=== PATIENT | male | born 1945 | race Caucasian/White ===

== ENCOUNTER 2022-02-14 12:48 | Outpatient (CLI) | payer MEDICARE, OTHER, SELFPAY ==
[2022-02-14 13:39] LABS: Influenza A QL RT-PCR Negative (Negative); Influenza B QL RT-PCR Negative (Negative); SARS-CoV-2 RNA PCR Negative
== END 2022-02-14 12:49 | disposition home or self-care (01) ==
PROVIDERS: PCP Internal Medicine; Visit Provider Internal Medicine
DX: B34.9 Viral infection, unspecified (principal); Z20.822 Contact with and (suspected) exposure to COVID-19
CPT/HCPCS: 87636

== ENCOUNTER 2022-02-16 11:48 | Emergency (ER) | payer MEDICARE, OTHER, SELFPAY ==
--- NOTE | ~2022-02-16 | XR_ITS ---
EXAMINATION: XR chest 2V 02/16/2022 13:33 INDICATION: Cough PROCEDURE: 2 view chest COMPARISON: 05/08/2018 FINDINGS: The lungs are clear. The cardiomediastinal silhouette is within normal limits. There are no pleural effusions. There is no pneumothorax suspected. There are prominent bilateral nipple shad ows. IMPRESSION: 1: NO ACUTE CARDIOPULMONARY DISEASE. Reviewed, dictated and finalized at location A. APIN FISHER
[2022-02-16 12:23] VITALS: BP 143/77; PULSE 66; RESP 18; TEMP 36; O2SAT 99
--- NOTE | 2022-02-16 13:24 | ED.URI ---
HPI - URI/Sore Throat General Chief Complaint: Upper Respiratory Infection Stated Complaint: Congestion,Cough Time Seen by Provider: 02/16/22 13:17 Source: patient Mode of arrival: ambulatory Limitations: no limitations History of Present Illness HPI Narrative: Patient presents today complaining of cough, congestion, postnasal drip, rhinorrhea for over a week. Denies fever. Two days ago he had a negative flu and COVID test at his PCPs office. He has been taking Mucinex and Vicks Cold and Flu without relief. Denies shortness of breath. Denies history of COPD or asthma. Related Data Home Medications Medication Instructions Recorded Confirmed dutasteride 0.5 mg capsule 0.5 mg PO DAILY 04/26/19 02/16/22 (Avodart) timolol maleate (PF) 0.5 % eye 1 drop ophthalmic (eye) DAILY 04/26/19 02/16/22 drops in a dropperette (Timoptic Ocudose (PF)) Allergies Allergy/AdvReac Type Severity Reaction Status Date / Time No Known Allergies Allergy Verified 02/16/22 12:17 Review of Systems Review of Systems: CONSTITUTIONAL: Denies body aches, fever, chills, or sweats. EYES: Denies visual changes, redness, or discharge. ENT: Denies sore throat, or otalgia.+ congestion, rhinorrhea, postnasal drip CARDIOVASCULAR: Denies chest pain, palpitations, or edema. RESPIRATORY: Denies dyspnea.+ cough GASTROINTESTINAL: Denies abdominal pain, nausea, vomiting, or diarrhea. GENITOURINARY: Denies dysuria or hematuria. SKIN: Denies rash, itching, or wounds. MUSCULOSKELETAL: Denies back pain, joint pain, or myalgia. NEUROLOGIC: Denies headache, numbness, tingling, or weakness. PSYCH: Denies depression or anxiety. [facility] Family History Family History Sibling Family history of lung cancer, Onset Age: 56 Patient's brother is Other Diabetes mellitus Family history of malignant neoplasm Hypertension Social History Social History Smoking status: Former smoker Second hand tobacco smoke exposure: No Smoking end date: 03/16/75 Alcohol intake: never Comments At time of signature, I have reviewed and agree with nursing past medical, surgical, social and family history unless otherwise noted. Please see nursing chart for further information. There is no relevant family history pertinent to the presenting complaint Exam Narrative: GENERAL: Mildly ill-appearing, well-nourished, and in no acute distress. HEAD: Normocephalic, atraumatic. EYES: EOMI. No redness or drainage. Conjunctivae normal. ENT: Mucous membranes pink and moist. Nares clear. No rhinorrhea. TMs normal bilaterally. Throat normal with moderate amount of postnasal drainage. Uvula midline. NECK: Normal AROM. Supple. No lymphadenopathy. CHEST: No respiratory distress. Clear to auscultation. HEART: Regular rate and rhythm. No murmur appreciated. Normal peripheral pulses. EXTREMITIES: Normal range of motion. No edema. SKIN: Warm, dry, no rash. Capillary refill normal. Normal skin turgor. NEURO: No focal deficits. Alert and oriented x3. Gait steady. PSYCH: Normal affect. No signs of depression or anxiety. Course Course Level of Care: Express Care Visit Vital Signs Vital signs: Vital Signs Temperature 96.8 F L 02/16/22 12:23 Pulse Rate 66 02/16/22 12:23 Respiratory Rate 18 02/16/22 12:23 Blood Pressure 143/77 H 02/16/22 12:23 Pulse Oximetry 99 02/16/22 12:23 Oxygen Delivery Room Air 02/16/22 12:23 Temperature 96.8 F L 02/16/22 12:23 Pulse Rate 66 02/16/22 12:23 Respiratory Rate 18 02/16/22 12:23 Blood Pressure 143/77 H 02/16/22 12:23 Pulse Oximetry 99 02/16/22 12:23 Oxygen Delivery Room Air 02/16/22 12:23 Reviewed. Pt has been instructed to follow up with his PCP regarding his elevated blood pressure today. MDM - URI/Sore Throat Differential Diagnosis Differential
== END 2022-02-16 14:08 | disposition home or self-care (01) ==
PROVIDERS: Emergency Provider Nurse Practitioner; PCP Internal Medicine
DX: J40 Bronchitis, not specified as acute or chronic (principal); J06.9 Acute upper respiratory infection, unspecified; Z87.891 Personal history of nicotine dependence; I10 Essential (primary) hypertension
CPT/HCPCS: 71046; 99213; G0463

== ENCOUNTER 2022-12-16 00:47 | Day surgery (SDC) | payer MEDICARE, OTHER, SELFPAY ==
[2022-12-03 14:00] VITALS: BMI 32.8
[2022-12-16 06:15] VITALS: BP 140/76; PULSE 63; RESP 20; TEMP 35.8; O2SAT 96
[2022-12-16] MEDS: LACTATED RINGERS 1,000 ML 150 ML IV CONT (06:22)
--- NOTE | 2022-12-16 07:13 | WPDANESEPPF ---
Anes - Initial Pre Proc Eval Procedure: Operation Date: 12/16/22 07:30 Proposed Procedures p Screening Colonoscopy - Rajeev Morocho MD Date/Time: 12/16/22 07:13 Surgeon: Rajeev Morocho MD Pre Op Diagnosis: neoplasm screening Patient Data Age: 77 Gender: M Height: 1.8 m Weight: 111.2 kg Last Vital Signs Temp 96.5 F L 12/16/22 06:15 Pulse 63 12/16/22 06:15 Resp 20 12/16/22 06:15 BP 140/76 12/16/22 06:15 Pulse Ox 96 12/16/22 06:15 O2 Del Method Room Air 12/16/22 06:15 Allergies Allergy/AdvReac Type Severity Reaction Status Date / Time No Known Allergies Allergy Verified 12/16/22 06:13 Home Medications Medication Instructions Recorded Confirmed Type dutasteride 0.5 mg capsule 0.5 mg PO DAILY 04/26/19 12/03/22 History (Avodart) timolol maleate (PF) 0.5 % eye 1 drop ophthalmic (eye) DAILY 04/26/19 12/03/22 History drops in a dropperette (Timoptic Ocudose (PF)) docusate sodium 100 mg capsule 100 mg PO DAILY 09/22/22 12/03/22 History (Stool Softener) lisinopril 20 mg tablet 20 mg PO DAILY #90 tabs 09/22/22 12/03/22 Rx sildenafil 50 mg tablet (Viagra) 50 mg PO DAILY PRN sexual activity 09/22/22 12/03/22 Rx #10 tabs Patient hx anesthesia problems: none Family hx anesthesia problems: none Results Review: All pre-operative results and documents have been reviewed as part of the pre-operative evaluation. [facility] Family History Family History Sibling Family history of lung cancer, Onset Age: 56 Patient's brother is Other Diabetes mellitus Family history of malignant neoplasm Hypertension Social History Social History Smoking packs per day: 1 Smoking cigarettes per day: 20.0 Years smoked: 20 Smoking pack-years: 20.00 Smoking status: Former smoker Tobacco type: cigarettes Second hand tobacco smoke exposure: No Smoking end date: 03/16/75 Alcohol intake: never Substance use: never Substance use type: does not use Lack of Transportation: No Lack of Food: Never True Current Housing: I Have Housing Concerned About Future Housing: No Difficulty Paying Gas/Electric Bills: No Difficulty Paying for Meds: No Currently Unemployed: No Education: Trade/Vocational Certificate Difficulty w/ Childcare or Family Care: No Living arrangements: with family Spiritual care concerns: No Anes - Eval Final PreProcedure Day of Procedure 12/16/22 07:13 Patient weight: normal Heart: regular rate and rhythm Lungs: clear to auscultation Airway: Mallampati scale class III Neurological: alert and oriented Last oral intake: >/= 8 hours ASA classification: II Emergent: no Anesthetic plan: proceed Anesthesia type and monitoring: general GIVS and standard monitoring Results Review: All pre-operative results and documents have been reviewed as part of the pre-operative evaluation. Informed Consent: The patient's anesthetic plan and its attendant risks and benefits were discussed with the patient/family/POA. Questions were solicited and answers provided to the satisfaction of the patient/family/POA.
--- NOTE | 2022-12-16 07:24 | PM.HPGS ---
History of Present Illness History of Present Illness Consent: Risks, benefits, and alternatives have been discussed and questions answered. Patient agrees to proceed with procedure. Chief complaint: neoplasm screening Narrative: Rg Barker Jr. is a 77 year old male Presents for screening colonoscopy. Patient has current weight appetite bowel movements are normal. Patient denies abdominal pain. He has had no bleeding. Family history noncontributory. Patient did have adenomatous colon polyps on previous colonoscopies. Most recently 2019. Review of Systems Review of Systems: Review of systems noncontributory. [facility] Family History Family History Sibling Family history of lung cancer, Onset Age: 56 Patient's brother is Other Diabetes mellitus Family history of malignant neoplasm Hypertension Social History Social History Smoking packs per day: 1 Smoking cigarettes per day: 20.0 Years smoked: 20 Smoking pack-years: 20.00 Smoking status: Former smoker Tobacco type: cigarettes Second hand tobacco smoke exposure: No Smoking end date: 03/16/75 Alcohol intake: never Substance use: never Substance use type: does not use Lack of Transportation: No Lack of Food: Never True Current Housing: I Have Housing Concerned About Future Housing: No Difficulty Paying Gas/Electric Bills: No Difficulty Paying for Meds: No Currently Unemployed: No Education: Trade/Vocational Certificate Difficulty w/ Childcare or Family Care: No Living arrangements: with family Spiritual care concerns: No Meds Home Medications and Allergies Home Medications Medication Instructions Recorded Confirmed Type dutasteride 0.5 mg capsule 0.5 mg PO DAILY 04/26/19 12/03/22 History (Avodart) timolol maleate (PF) 0.5 % eye 1 drop ophthalmic (eye) DAILY 04/26/19 12/03/22 History drops in a dropperette (Timoptic Ocudose (PF)) docusate sodium 100 mg capsule 100 mg PO DAILY 09/22/22 12/03/22 History (Stool Softener) lisinopril 20 mg tablet 20 mg PO DAILY #90 tabs 09/22/22 12/03/22 Rx sildenafil 50 mg tablet (Viagra) 50 mg PO DAILY PRN sexual activity 09/22/22 12/03/22 Rx #10 tabs Allergies Allergy/AdvReac Type Severity Reaction Status Date / Time No Known Allergies Allergy Verified 12/16/22 06:13 Vital Signs Vital Signs - 24 hr 12/16/22 06:15 Temperature 96.5 F L Pulse Rate 63 Respiratory Rate 20 Blood Pressure 140/76 Pulse Oximetry 96 Oxygen Delivery Room Air Exam Narrative: Physical exam reveals patient to be alert. Vital signs stable. HEENT exam is unremarkable. Patient is anicteric. Lungs are clear to auscultation and percussion. Heart is without murmur or extra sounds. Abdomen bowel sounds are present soft nontender with no organomegaly. Digital external rectal exam normal. Assessment and Plan Assessment and plan (1) History of colon polyps: Code(s): Z86.010 - Personal history of colonic polyps Status: Acute Assessment and Plan: Patient found to have adenomatous colon polyps by previous colonoscopy 2018. Patient presents today for surveillance colonoscopy.
[2022-12-16] MEDS: SIMETHICONE ORAL SUSPENSION 20 MG/0.3 ML 30 ML BOTTLE 0.6 ML IRRIGATION (07:36)
[2022-12-16 07:46] VITALS: BP 124/70; PULSE 79; RESP 18; O2SAT 92
[2022-12-16 07:56] VITALS: BP 145/93; PULSE 72; RESP 20; O2SAT 97
[2022-12-16 08:06] VITALS: BP 141/91; PULSE 71; RESP 20; O2SAT 97
== END 2022-12-16 08:14 | disposition home or self-care (01) ==
PROVIDERS: PCP Internal Medicine; Visit Provider Internal Medicine Gastroenterology
PROC: 0DJD8ZZ Inspection of Lower Intestinal Tract, Via Natural or Artificial Opening Endoscopic (ICD-10-PCS; CPT 45378; principal; 2022-12-16 07:30)
DX: Z12.11 Encounter for screening for malignant neoplasm of colon (principal); K64.8 Other hemorrhoids; Z86.010 Personal history of colon polyps; Z87.891 Personal history of nicotine dependence
CPT/HCPCS: G0105; J2704; J7120

== ENCOUNTER 2024-03-12 08:18 | Emergency (ER) | payer MEDICARE, OTHER, SELFPAY ==
--- NOTE | 2024-03-12 08:22 | ED_ITS ---
HPI - URI/Sore Throat General Chief Complaint: Upper Respiratory Infection Stated Complaint: Sinus Infection Symptoms Time Seen by Provider: 03/12/24 08:23 Source: patient, RN notes reviewed and old records reviewed Mode of arrival: ambulatory Limitations: no limitations History of Present Illness HPI Narrative: 78-year-old male presents to the [facility] with complaints of sinus congestion since last night Reports watery eyes and nose. Has taking Mucinex Patient denies any coughing, chest pain, fevers Onset (ago): hour(s) (12) Related Data Home Medications ?Medication ?Instructions ?Recorded ?Confirmed ?Last Taken ?Type dutasteride 0.5 mg capsule 0.5 mg PO DAILY 04/26/19 01/25/24 Unknown History (Avodart) timolol maleate (PF) 0.5 % eye 1 drop ophthalmic (eye) DAILY 04/26/19 01/25/24 Unknown History drops in a dropperette (Timoptic Ocudose (PF)) docusate sodium 100 mg capsule 100 mg PO DAILY 09/22/22 01/25/24 Unknown History (Stool Softener) Allergies Allergy/AdvReac Type Severity Reaction Status Date / Time No Known Allergies Allergy Verified 03/12/24 08:21 Review of Systems Review of Systems: All systems reviewed & are unremarkable except as noted in HPI and below Constitutional: Constitutional: Reports no additional constitutional complaints ENT: Reports as per HPI Cardiovascular: Cardiovascular: Reports no additional cardiovascular complaints, Denies chest pain and Denies dyspnea Respiratory: Respiratory: Reports no additional respiratory complaints, Denies chest congestion, Denies cough and Denies dyspnea Musculoskeletal: Musculoskeletal: Reports no additional musculoskeletal complaints Integumentary/Breasts: Skin/Breast: Reports system reviewed and no additional complaints, except as docu PMFSH Family History Family History Sibling Family history of lung cancer, Onset Age: 56 Patient's brother is Accident caused by farm tractor Mother Cerebrovascular accident Macular degeneration Father Acute myocardial infarction Sibling No problems noted. Other Diabetes mellitus Family history of malignant neoplasm Hypertension Social History Social History Smoking packs per day: 1 Smoking cigarettes per day: 20.0 Years smoked: 20 Smoking pack-years: 20.00 Smoking status: Former smoker Tobacco type: cigarettes Second hand tobacco smoke exposure: No Smoking end date: 03/16/75 Alcohol intake: former Substance use: never Substance use type: does not use Do You Feel Safe in your Home?: Yes Lack of Transportation: No Lack of Food: Never True Current Housing: I Have Housing Concerned About Future Housing: No Difficulty Paying Gas/Electric Bills: No Difficulty Paying for Meds: No Currently Unemployed: No Education: Trade/Vocational Certificate Difficulty w/ Childcare or Family Care: No Living arrangements: with family Occupation/Education: 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 There is no relevant family history p ertinent to the patient complaint. Exam Const: General: cooperative, healthy appearing, comfortable, no acute distress, well developed, alert and well nourished Nutritional Appearance: well nourished Orientation/consciousness: patient oriented x3 Limitations: no limitations HENMT: Head: normal to inspection Ears: hearing grossly normal bilaterally, external ears normal, TM's normal bilaterally, EAC's normal, mastoids normal and no periauricular adenopathy Face/Nose/Sinus: Normal nasal mucous membranes and turbinates present, Nasal discharge present clear bilateral, normal facial exam and face symmetric Mouth: Yes Normal oral and palatal mucosa present, Yes lip normal, Yes tongue normal and Yes moist mucous membranes Throat: posterior oropharynx normal, uvula midline, postnasal drainage and no uvular edema Eyes: General: appearance normal, both eyes and all related structures Neck: Neck: normal visual inspection, full ROM, no lymphadenopathy and no meningeal signs Chest: Chest palpation & inspection: normal inspection of the chest Resp: Effort & Inspection: normal respiratory effort and able to speak in complete sentences Auscultation: clear to auscultation bilaterally, no crackles, no rales, no rhonchi and no wheezes Cardio: Rate: regular rate Skin: General skin exam: normal color and no rashes or lesions noted Neuro: General: patient oriented x3, gait normal, moves all extremities and no meningeal signs Cognition (Neuro): normal cognition Speech: normal speech Gait exam (Neuro): Normal gait present Extrem: General: normal to inspection, full ROM, capillary refill normal and normal gait Psych: Appearance: grossly normal and well kempt Mental Status: mental status grossly normal Speech and movement: Normal speech and movement present and Clear speech present Affect: normal affect Attitude: cooperative Course Course Level of Care: Express Care Visit Vital Signs Vital signs: Vital Signs Temperature 99.5 F 03/12/24 08:26 Pulse Rate 93 03/12/24 08:26 Respiratory Rate 18 03/12/24 08:26 Blood Pressure 161/78 H 03/12/24 08:26 Pulse Oximetry 95 03/12/24 08:26 Oxygen Delivery Room Air 03/12/24 08:26 Temperature 99.5 F 03/12/24 08:26 Pulse Rate 93 03/12/24 08:26 Respiratory Rate 18 03/12/24 08:26 Blood Pressure 161/78 H 03/12/24 08:26 Pulse Oximetry 95 03/12/24 08:26 Oxygen Delivery Room Air 03/12/24 08:26 Reviewed MDM - URI/Sore Throat MDM Narrative Medical decision making narrative: Patient sitting comfortably in exam room. Nontoxic, vitals stable. Patient with approximately 12 hours of sinus congestion, rhinorrhea, watery itchy eyes No acute findings other than rhinorrhea and postnasal drainage noted. Patient was offered flu and COVID testing, politely declined. Discussed [id number] treatments, the importance of following up and when to return. Patient appropriate for outpatient treatment and Discharge instructions reviewed with patient, as well as provided in writing per nursing staff. The instructions also include specific and strict return/GO TO THE ER as well as f/u information. All questions have been answered, and the patient deny any further questions with discharge and discharge plan. Some parts of this dictation were generated by voice recognition software and may contain typographical and/or grammatical inaccuracies. Differential Diagnosis Differential diagnosis: Likely upper respiratory infection, sinusitis, viral infection, influenza and other (COVID, RSV) Critical Care Time Critical Care Time Critical Care Time: No Discharge Plan Discharge Clinical Impression: Viral infection, PND (post-nasal drip) Sinusitis Qualifiers: Sinusitis location: unspecified location Chronicity: acute Recurrence: not specified as recurrent Qualified Code(s): J01.90 - Acute sinusitis, unspecified Patient Disposition: Home, Self-Care Condition: Stable Instructions: Antibiotic Form, Sinusitis (ED), Postnasal Drip (DC) Additional Instructions: Your symptoms are likely due to a viral illness, which is not treated with antibiotics. Typically viral infections last 7-10 days, can linger for couple of weeks. It is very important to treat your symptoms. Drink plenty of water, Gatorade, Pedialyte, ice pops or Jell-O. -Alternate Tylenol and Motrin per package directions for fever or pain. You can alternate every 4 hours -Antihistamine medication such as Zyrtec/Claritin/Anastasia during the day can help improve symptoms. -doing daily nasal irrigations can help relieve pressure your sinuses. Things like a Neti pot or saloine spray -Use Flonase twice a day for 5 days then daily to help reduce the inflammation and dry up your sinuses. -You can also use Mucinex or Coricidin HBP. Be sure to drink plenty of water with this medication at least 8 ounces with every dose and it is important to drink 8 to 10 glasses of water per day. Water is a natural decongestant -Eat and drink things that are easy to swallow, like tea or soup, or popsicles. -Oral rinses such as: Salt water gargles and/or may use topical anesthetic (eg. Chloraseptic spray) or lozenges to relieve dryness or throat pain). -Frequent hand washing or hand quality control engineer is one of the best ways to prevent spread of infection. -Using a vaporizer or humidifier at night will also help thin secretions and help with coughing up phlegm. -Follow up with primary care provider in 7-10 days if condition is not improving - For new or worsening symptoms go directly to the nearest ER Patient Language: [place] Prescriptions: No Action dutasteride [Avodart] 0.5 mg capsule 0.5 mg PO DAILY Timoptic Ocudose (PF) 0.5 % dropperette 1 drop EACH EYE DAILY docusate sodium [Stool Softener] 100 mg capsule 100 mg PO DAILY lisinopril 20 mg tablet 20 mg PO DAILY Qty: 90 3RF Follow-up/Referrals: Cisco Dumont DO [Primary Care Provider] - 2 Weeks ([facility] care follow [facility]) Time of Disposition: 08:41
[2024-03-12 08:26] VITALS: BP 161/78; PULSE 93; RESP 18; TEMP 37.5; O2SAT 95
== END 2024-03-12 08:44 | disposition home or self-care (01) ==
PROVIDERS: Emergency Provider Nurse Practitioner; PCP Internal Medicine
DX: B34.9 Viral infection, unspecified (principal); R09.82 Postnasal drip; J01.90 Acute sinusitis, unspecified; Z87.891 Personal history of nicotine dependence
CPT/HCPCS: 99211; G0463

== ENCOUNTER 2024-04-12 06:46 | Emergency (ER) | payer MEDICARE, OTHER, SELFPAY ==
[2024-04-12] VITALS (7 sets, daily range): BP systolic 129–142; BP diastolic 66–90; PULSE 79–84; RESP 14–22; TEMP 36.5–36.6; O2SAT 94–100
--- NOTE | ~2024-04-12 | XR_ITS ---
Clinical Indication: Chest pain PA and lateral views of the chest: Comparison: 02/16/2022 Findings: The lungs are clear, without evidence of focal consolidation or pleural effusion. Cardiome diastinal silhouette is within normal limits. Bones and soft tissues are unremarkable. Impression: Normal chest. Reviewed, dictated and finalized at location . ATOR PILOT Impression: Normal chest.
--- OUTSIDE RECORDS SUMMARY | 2024-04-12 06:48 | XMS_ITS | Clinical Summary ---
Author Organization [facility] Address [address] [place] [address]. [place], [place] [id number] [place] [address] Care Team Providers Care Wearing Apparel Presser Name Role Phone Cisco Dumont DO Primary Care Provider Allergies No known active allergies Medications lisinopril (PRINIVIL) 20 MG tablet Take 1 tablet (20 mg total) by mouth daily. Active albuterol sulfate HFA 108 (90 Base) MCG/ACT inhaler Inhale 4 puffs into the lungs every 4 (four) hours as needed for Wheezing or Shortness of breath. 18 g 5 Active predniSONE (DELTASONE) 20 MG tablet Take 3 tablets (60 mg total) by mouth daily for 5 days. 15 tablet 5 04/06/19 25 Encounters Date Type Department Care Team Description 04/01/2024 7:16 AM COSMETICIAN APPRENTICE - 04/01/2024 9:35 AM [facility] Emergency [facility] Emergency Room [address] [place] [address] Reilly Stewart MD Shortness Of Breath Discharge Disposition: Home or Self Care (Routine Discharge) 04/01/2024 Travel from Last 3 Months Social History Tobacco Use Types Packs/Day Years Used Date Smoking Tobacco: Former Cigarettes Smokeless Tobacco: Former Tobacco Cessation:Counseling Given: Not Answered Alcohol Use Standard Drinks/Week Comments Not Currently 0 (1 standard drink = 0.6 oz pur e alcohol) Sex and Gender Information Value Date Recorded Sex Assigned at Male 04/01/2024 7:39 AM COSMETICIAN APPRENTICE Legal Sex Male 7:12 AM COSMETICIAN APPRENTICE Gender Identity Not on file Sexual Orientation Not on file Last Filed Vital Signs Vital Sign Reading Time Taken Comments Blood Pressure 162/96 04/01/2024 9:15 AM COSMETICIAN APPRENTICE Pulse 70 04/01/2024 9:15 AM COSMETICIAN APPRENTICE Temperature 36.5 ??C (97.7 ??F) 04/01/2024 9:15 AM CS T Respiratory Rate 18 04/01/2024 9:15 AM COSMETICIAN APPRENTICE Oxygen Saturation 94% 04/01/2024 9:15 AM COSMETICIAN APPRENTICE Inhaled Oxygen Concentration - - Weight 114.3 kg (251 lb 15.8 oz) 04/01/2024 7:13 AM COSMETICIAN APPRENTICE Height 180.3 cm (5' 11 ) 04/01/2024 7:13 AM COSMETICIAN APPRENTICE Body Mass Index 35.14 04/01/2024 7:13 AM COSMETICIAN APPRENTICE Plan of Treatment Health Maintenance Due Date Last Done Comments Hepatitis C 11/22/1963 DTaP, Tdap and Td Vaccines ( 1 - Tdap) 1964 Zoster Vaccines (1 of 2) 11/22/1995 Annual Medicare Wellness Visit 2010 Pneumococcal Vaccine: 65+ Ye ars (1 of 1 - PCV) 2010 RSV Immunization or 60+ Years (1 - 1-dose 75+ series) 2020 COVID-19 Vaccine (2023-2 5 season) 2023 Influenza Adult (#1) 2023 Meningococcal B Vaccine Aged Out No l onger eligible based on patient's age to complete this topic Meningococcal Vaccine Aged Out No rambo rebekah eligible based on patient's age to complete this topic RSV Immunizations Under 20 Months Aged Out No longer eligible based on patient's age to complete this topic Procedures Procedure Name Priority Date/Time Associated Diagnosis Comments XR CHEST PA+LAT STAT 04/01/2024 8:20 AM COSMETICIAN APPRENTICE ECG 12-LEAD Routine 04/01/2024 7:35 AM COSMETICIAN APPRENTICE PRO-BRAIN NATRIURETIC PEPTIDE STAT 04/01/2024 7:18 AM COSMETICIAN APPRENTICE TROPONIN, QUANT STAT 04/01/2024 7:18 AM COSMETICIAN APPRENTICE COMPREHENSIVE METABOLIC PANEL STAT 04/01/2024 7:18 AM COSMETICIAN APPRENTICE CBC W/DIFF AUTOMATED STAT 04/01/2024 7:18 AM COSMETICIAN APPRENTICE from Last 3 Months Results * XR CHEST PA+LAT (04/01/2024 8:20 AM COSMETICIAN APPRENTICE) Anatomical Region Laterality Modality Chest Radiographic C[place] ging 04/01/2024 8:24 AM COSMETICIAN APPRENTICE Impressions 04/01/2024 8:27 AM COSMETICIAN APPRENTICE IMPRESSION: 1. No focal consolidation or acute findings. 2. Nodular densities in the left lung base, favored to reflect calcified granulomas. Recommend nonemergent outpatient CT chest without contrast, if not previously performed, for confirmation. Ordered By: REILLY STEWART Interpreted By: Srinivasan Dubon MD, 04/01/2024 8:24 AM Narrative 04/01/2024 8:27 AM COSMETICIAN APPRENTICE [facility] [address] [place] [id number] XR CHEST PA+LAT INDICATION: dyspnea ?? TECHNIQUE: PA and lateral views of the chest. COMPARISON: None FINDINGS: The cardiomediastinal silhouette is within normal limits. There is no pulmonary consolidation. Nodular densities project over the left lung base, likely reflective of granulomas. No pleural effusions or pneumothorax. No acute osseous abnormality. Moderate thoracic spondylosis. Procedure Note Srinivasan Dubon MD - 04/01/2024 [facility] [address] [place] [address] XR CHEST PA+LAT INDICATION: dyspnea TECHNIQUE: PA and lateral views of the chest. COMPARISON: None FINDINGS: The cardiomediastinal silhouette is within normal limits. There is nopulmonary consolidation. Nodular densities project over the left lungbase, likely reflective of granulomas. No pleural effusions orpneumothorax. No acute osseous abnormality. Moderate thoracicspondylosis. IMPRESSION: 1. No focal consolidation or acute findings. 2. Nodular densities in the left lung base, favored to reflect calcifiedgranulomas. Recommend nonemergent outpatient CT chest without contrast, ifnot previously performed, for confirmation. Ordered By: REILLY STEWART Interpreted By: Srinivasan Dubon MD, 04/01/2024 8:24 AM us Reilly Stewart MD GENERAL IMAGING Final Resu lt * ECG 12 lead (04/01/2024 7:35 AM COSMETICIAN APPRENTICE) 04/01/2024 7:35 AM COSMETICIAN APPRENTICE Narrative [facility] [address] ([facility]) RAD - 04/01/2024 8:19 AM COSMETICIAN APPRENTICE ?[facility] ? Test Date: ?2024-04-01 Pat Name: ? INDIANA DOMINGUEZ ? Department: ?? 85 ? Room: ? EXAM 202 Gender: ? M ?Cardiovascular Or Nurse: ?? : ?1945 ? Requested By: REILLY STEWART Order Number: [id number] ? Reading : ?? Carlo Snow ? Measurements Intervals ?[place] ? Rate: ? 61 ? P: ?79 MO: ? 162 ?QRS: ?104 QRSD: ? 97 ? T: ?60 QT: ? 369 ? QTc: ?374 ? Interpretive Statements SINUS RHYTHM RIGHT AXIS DEVIATION ??[QRS AXIS > 100] No previous ECG available for comparison ETICIAN APPRENTICE Procedure Note Carlo Snow MD - 04/01/2024 [facility] Test Date: 2024-04-01 Pat Name: INDIANA DOMINGUEZ Department: 85 Room: EXAM 202 Gender: M Cardiovascular Or Nurse: : 1945 Requested By: REILLY STEWART Order Number: [id number] Balaji MD: Carlo Snow Measurements Intervals [place] Rate: 61 P: 79 MO: 162 QRS: 104 QRSD: 97 T: 60 QT: 369 QTc: 374 Interpretive Statements SINUS RHYTHM RIGHT AXIS DEVIATION [QRS AXIS > 100] No previous ECG available for comparison ETICIAN APPRENTICE Reilly Stewart MD ECG ORDERABLES Final Resu lt Performing Organization Address [facility] Co de Phone Number [facility] ([facility]) RAD * PRO-BRAIN NATRIURETIC PEPTIDE (04/01/2024 7:18 AM COSMETICIAN APPRENTICE) PRO-B TYPE NATRIURETIC PEPTIDE 119 <450 PG/ML 04/01/2024 7:57 AM COSMETICIAN APPRENTICE [facility] Comment: CUT POINTS ESTABLISHED BY [employer]ATIONAL [employer] ON NT PROBNP (ICON) STUDY (2006). AGE INDEPENDENT: <300 PG/ML HAS A 99% NEGATIVE PREDICTIVE VALUE FOR EXCLUDING ACUTE CHF <50 YEARS: >450 PG/ML IS CONSISTENT WITH ACUTE CHF 50-75 YEARS: >900 PG/ML IS CONSISTENT WITH ACUTE CHF >75 YEARS: >1800 PG/ML IS CONSISTENT WITH ACUTE CHF IN PATIENTS WITH RENAL INSUFFICIENCY (GFR <60), >1200 PG/ML YIELDS A DIAGNOSTIC SENSITIVITY AND SPECIFICITY OF 89% AND 72% FOR ACUTE CHF. 04/01/2024 7:18 AM COSMETICIAN APPRENTICE us Reilly Stewart MD LABORATORY Final Resu lt Performing Organization Address [facility] Co de Phone Number [facility] [address] [place] [address], [place] [phone] * (ABNORMAL) COMPREHENSIVE METABOLIC PANEL (04/01/2024 7:18 AM COSMETICIAN APPRENTICE) GLUCOSE 94 70 - 99 MG/DL 04/01/2024 7:57 AM COSMETICIAN APPRENTICE [facility] BUN 16 7 - 18 MG/DL 04/01/2024 7:57 AM COSMETICIAN APPRENTICE [facility] CREATININE S/P/B 1.04 0.7 - 1.3 MG/DL 04/01/2024 7:57 AM COSMETICIAN APPRENTICE [facility] SODIUM S/P/B 139 136 - 145 MMOL/L 04/01/2024 7:57 AM [facility] POTASSIUM S/P/B 4.1 3.5 - 5.1 MMOL/L 04/01/2024 7:57 AM [facility] CHLORIDE S/P/B 103 100 - 108 MMOL/L 04/01/2024 7:57 AM [facility] CO2 33.9(H) 21 - 32 MMOL/L 04/01/2024 7:57 AM [facility] CALCIUM S/P/B 9.1 8.5 - 10.1 MG/DL 04/01/2024 7:57 AM [facility] BILIRUBIN TOTAL S/P/B 0.7 0.2 - 1.2 MG/DL 04/01/2024 7:57 AM [facility] TOTAL PROTEIN S/P/B 7.5 6.4 - 8.2 G/DL 04/01/2024 7:57 AM [facility] ALBUMIN S/P/B 3.8 3.4 - 5.0 G/DL 04/01/2024 7:57 AM [facility] AST 17 15 - 37 U/L 04/01/2024 7:57 AM [facility] ALT 13(L) 16 - 60 U/L 04/01/2024 7:57 AM [facility] ALKALINE PHOSPHATASE S/P/B 111 50 - 136 U/L 04/01/2024 7:57 AM [facility] ANION GAP 2.1(L) 5 - 15 MMOL/L 04/01/2024 7:57 AM [facility] BUN CREATININE RATIO 15.4 6 - 26 04/01/2024 7:57 AM [facility] A/G RATIO 1.0 1.0 - 2.0 RATIO 04/01/2024 7:57 AM [facility] GFR ESTIMATE 73(L) >90 ML/MIN/1.7 3 M2 04/01/2024 7:57 AM [facility] Comment: NOTE: eGFR is not calculated for patients <18 years of age. This is an estimated GFR calculation using the new CKD EPI creatinine equation without race and so does not require a correction factor for race. This estimated GFR should not be used for calculating drug doses. 04/01/2024 7:18 AM COSMETICIAN APPRENTICE us Reilly Stewart MD LABORATORY Final Resu lt [facility] [address] [place] [id number], [place] [phone] * CBC W/DIFF AUTOMATED (04/01/2024 7:18 AM COSMETICIAN APPRENTICE) WBC 7.54 4.4 - 11.0 x10'3/uL 04/01/2024 7:42 AM [facility] RBC 5.53 4.50 - 5.90 x10'6/uL 04/01/2024 7:42 AM [facility] HGB 15.7 14.0 - 17.5 G/DL 04/01/2024 7:42 AM [facility] HCT 49.2 41.5 - 50.4 % 04/01/2024 7:42 AM [facility] MCV 89.0 80.0 - 96.0 FL 04/01/2024 7:42 AM [facility] MCH 28.4 26.5 - 31.4 PG 04/01/2024 7:42 AM [facility] MCHC 31.9 31.9 - 34.8 G/DL 04/01/2024 7:42 AM [facility] RDW 13.8 12.3 - 14.3 % 04/01/2024 7:42 AM [facility] PLT 185 151 - 353 x10'3/uL 04/01/2024 7:42 AM [facility] MPV 9.7 9.7 - 11.9 FL 04/01/2024 7:42 AM [facility] RBC MORPHOLOGY NORMAL 04/01/2024 7:42 AM [facility] PLT MORPH. NORMAL 04/01/2024 7:42 AM [facility] WBC MORPHOLOGY NORMAL 04/01/2024 7:42 AM [facility] LYMPHOCYTES % 21.8 15.8 - 45.0 % 04/01/2024 7:42 AM [facility] NEUTROPHILS % 62.6 42.1 - 71.9 % 04/01/2024 7:42 AM [facility] MONOCYTES % 11.3 5.7 - 12.5 % 04/01/2024 7:42 AM [facility] EOSINOPHILS 3.2 0.0 - 5.6 % 04/01/2024 7:42 AM [facility] BASOPHILS 0.8 0.0 - 1.3 % 04/01/2024 7:42 AM [facility] ABS. NEUTROPHILS 4.73 1.40 - 6.00 x10'3/uL 04/01/2024 7:42 AM [facility] IMMATURE GRANS % 0.3 0.0 - 0.5 % 04/01/2024 7:42 AM [facility] ABS. LYMPHOCYTES 1.64 0.80 - 4.70 x10'3/uL 04/01/2024 7:42 AM COSMETICIAN APPRENTICE [facility] 04/01/2024 7:18 AM COSMETICIAN APPRENTICE Reilly Stewart MD LABORATORY Final Resu lt Performing Organization Address City/[facility]/ZIP Co de Phone Number [facility] [address] [place] [address], [place] [phone] * TROPONIN, QUANT (04/01/2024 7:18 AM COSMETICIAN APPRENTICE) TROPONIN I HIGH SENSITIVITY 5 0 - 75 ng/L 04/01/2024 7:51 AM COSMETICIAN APPRENTICE [facility] Comment: HIGH DOSES OF BIOTIN, TROPONIN-SPECIFIC AUTOANTIBODIES, AND ANTIBODY THERAPY CONTAINING HAMA MAY INTERFERE WITH THIS TEST RESULT. CORRELATION TO CLINICAL HISTORY AND PRESENTATION RECOMMENDED. 04/01/2024 7:18 AM COSMETICIAN APPRENTICE Reilly Stewart MD LABORATORY Final Resu lt Performing Organization Address [facility] Co de Phone Number [facility] [address] [place] [address], [place] [phone] from Last 3 Months Insurance [place]IC[place] [id number] Care Teams Wearing Apparel Presser Relationship Specialty Start Date End Date Cisco Dumont DO [address] [place] [id number] PCP - General INTERNAL MEDICINE 04/01/24
--- NOTE | 2024-04-12 06:54 | ECG_ITS ---
Test Date: 2024-04-12 06:57:36 Measurements Intervals [place] Rate: 83 P: 74 [place]: 154 QRS: 105 QRSD: 93 T: 48 QT: 340 QTc: 401 Interpretive Statements SINUS RHYTHM RIGHT AXIS DEVIATION [QRS AXIS > 100] No previous ECG available for comparison Electronically Signed On 04-12-2024 16:17:07 ROLLER SKATE ASSEMBLER by Lulu Real M.D.
[2024-04-12 07:09] LABS: Basophils Percent Auto 0.5 % (0.2-1.2); Eosinophils Absolute Auto 0.4 K/mm3 (0-0.3); Hematocrit 53.3 % (42.0-52.0); Hemoglobin 16.7 g/dL (14.0-18.0); Immature Granulocyte Absolute 0.04 K/mm3 (0.00-0.031); Immature Granulocyte Percent A 0.5 % (0-0.5); Lymphocytes Absolute Auto 1.51 K/mm3 (0.9-3.2); Lymphocytes Percent Auto 17.1 % (18.3-44.2); Mean Corpuscular HGB Conc 31.3 g/dl (32-36); Mean Corpuscular Volume 89.4 fl (80-100); Mean Platelet Volume 9.8 fl (7.4-10.4); Monocytes Absolute Auto 0.7 K/mm3 (0.1-0.6); Monocytes Percent Auto 8.1 % (2.6-8.5); Neutrophils Absolute Auto 6.1 K/mm3 (1.3-6.7); Neutrophils Percent Auto 68.8 % (45.5-73.1); Platelet Count Result 169 k/mm3 (150-375); Red Blood Count 5.96 M/mm3 (4.6-6.20); Red Cell Distribution Width 13.7 % (11.5-14.5); White Blood Count 8.8 K/mm3 (4.5-10.0)
[2024-04-12 07:20] LABS: INR 1.1; Prothrombin Time 14.6 Seconds (11.1-14.7)
[2024-04-12 07:21] LABS: Partial Thromboplastin Time 30.4 Seconds (22.3-36.8)
[2024-04-12 07:32] LABS: Alanine Aminotransferase 24 U/L (6-50); Albumin Level 4.3 g/dL (3.5-5.1); Alkaline Phosphatase 93 U/L (38-126); Anion Gap 7 mmol/L (4-12); Aspartate Amino Transferase 19 U/L (17-59); Bilirubin,Total 0.7 mg/dL (0.2-1.3); Blood Urea Nitrogen 21 mg/dL (9-20); Calcium 9.3 mg/dL (8.4-10.2); Carbon Dioxide 31 mmol/L (22-30); Chloride 100 mmol/L (98-107); Estimated CRCL calculation 82 ml/min; Estimated Glomerular Filt Rate > 60; Glucose 134 mg/dL (65-110); Lipase 415 U/L (23-300); Potassium 4.5 mmol/L (3.4-5.0); Sodium 138 mmol/L (137-145)
[2024-04-12 07:43] LABS: Troponin I < 0.012 ng/mL (0.000-0.034)
--- NOTE | 2024-04-12 08:10 | ED_ITS ---
HPI - General Adult General Chief complaint: Shortness of Breath/Dyspnea Stated complaint: SOB and Nausea Time Seen by Provider: 04/12/24 06:57 History of Present Illness HPI narrative: 78-year-old male present to the emergency department for evaluation for worsening shortness of breath. Patient reports he had an upper airway infection on March 09 was started on a Z-Raciel. Patient then had recurrent symptoms on April 01 and was started on prednisone and albuterol. Patient states that he had been doing better but then started having worsening shortness of breath yesterday. Patient complains of worsening wheezing but denies any cough congestion or fatigue. Patient does have a remote history of smoking but has never been diagnosed with COPD. Patient is wheezing on arrival to the emergency department. Patient appears to be in no distress Related Data Home Medications ?Medication ?Instructions ?Recorded ?Confirmed ?Last Taken ?Type dutasteride 0.5 mg capsule 0.5 mg PO DAILY 04/26/19 01/25/24 Unknown History (Avodart) timolol maleate (PF) 0.5 % eye 1 drop ophthalmic (eye) DAILY 04/26/19 01/25/24 Unknown History drops in a dropperette (Timoptic Ocudose (PF)) docusate sodium 100 mg capsule 100 mg PO DAILY 09/22/22 01/25/24 Unknown History (Stool Softener) albuterol sulfate 90 mcg/actuation 1 puff inhalation Q4H PRN 04/06/24 Unknown History aerosol inhaler (Ventolin HFA) Allergies Allergy/AdvReac Type Severity Reaction Status Date / Time No Known Allergies Allergy Verified 04/12/24 06:47 Review of Systems 2 Review of Systems: All systems reviewed & are unremarkable except as noted in HPI and below PMFSH Family History Family History Sibling Family history of lung cancer, Onset Age: 56 Patient's brother is Accident caused by farm tractor Mother Cerebrovascular accident Macular degeneration Father Acute myocardial infarction Sibling No problems noted. Other Diabetes mellitus Family history of malignant neoplasm Hypertension Social History Social History Smoking packs per day: 1 Smoking cigarettes per day: 20.0 Years smoked: 20 Smoking pack-years: 20.00 Smoking status: Former smoker Tobacco type: cigarettes Second hand tobacco smoke exposure: No Smoking end date: 03/16/75 Alcohol intake: former Substance use: never Substance use type: does not use Do You Feel Safe in your Home?: Yes Lack of Transportation: No Lack of Food: Never True Current Housing: I Have Housing Concerned About Future Housing: No Difficulty Paying Gas/Electric Bills: No Difficulty Paying for Meds: No Currently Unemployed: No Education: Trade/Vocational Certificate Difficulty w/ Childcare or Family Care: No Living arrangements: with family Occupation/Education: retired 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 HEAD: normocephalic, atraumatic. EYES: PERRLA/EOMI, conjunctivae clear. NOSE: Normal no drainage EARS:TMS clear with good light reflex. THROAT: Pharynx clear, no exudate. NECK: Supple. No adenopathy, no masses. RESPIRATORY: Expiratory wheeze in all lung porras CARDIOVASCULAR: Regular rate and rhythm without murmurs rubs or gallops. ABDOMINAL: Soft, nontender, nondistended, normal bowel sounds MUSCULOSKELETAL: Moves all extremities. Strength/ROM intact, No edema, No calf tenderness. NEURO: Alert. Cranial nerves II through XII intact. Good gait. Good coordination SKIN: Warm, dry. Normal Color Course Vital Signs Vital signs: Vital Signs Temperature 97.8 F 04/12/24 06:55 Pulse Rate 84 04/12/24 06:55 Respiratory Rate 16 04/12/24 06:55 Blood Pressure 142/90 H 04/12/24 06:55 Pulse Oximetry 94 04/12/24 06:55 Oxygen Delivery Room Air 04/12/24 06:55 Temperature 97.7 F 04/12/24 11:21 Pulse Rate 81 04/12/24 11:21 Respiratory Rate 22 H 04/12/24 11:21 Blood Pressure 129/66 04/12/24 11:21 Pulse Oximetry 97 04/12/24 11:21 Oxygen Delivery Room Air 04/12/24 08:35 Medical Decision Making MDM Narrative Medical decision making narrative: 70-year-old male presents emergency department for evaluation for worsening shortness of breath. Patient does not have a diagnosis of COPD but does have a prior history of smoking and also has a history of welding fume lee to his lungs. Patient is afebrile with no leukocytosis hemoglobin of 16.7. INR 1.1. Patient has a CO2 of 31 with out any other significant abnormalities on his CMP patient's lipase was mildly elevated at 415 but patient has no associated abdominal pain. Influenza RSV and COVID were negative and chest x-ray showed was no focal pneumonia. Have significant wheezing on arrival was treated with a breathing treatment and does feel improved. On re-examination patient does still have some minor wheeze but does sound improved and patient reports he feels improved. Patient will be treated as a COPD exacerbation. Patient presently been treated with a Z-Raciel but wall be started on a Z-Raciel in addition to Augmentin and a short course of steroids. Patient does have a spacer MPV provided additional albuterol. Patient was encouraged of close follow-up with primary care physician and follow-up with pulmonology was recommended. Differential Diagnosis Differential Diagnosis: COVID, RSV, influenza, pneumonia, pneumothorax, COPD, CHF Vital Signs Vital Signs: Vital Signs Temperature 97.8 F 04/12/24 06:55 Pulse Rate 84 04/12/24 06:55 Respiratory Rate 16 04/12/24 06:55 Blood Pressure 142/90 H 04/12/24 06:55 Pulse Oximetry 94 04/12/24 06:55 Oxygen Delivery Room Air 04/12/24 06:55 Temperature 97.7 F 04/12/24 11:21 Pulse Rate 81 04/12/24 11:21 Respiratory Rate 22 H 04/12/24 11:21 Blood Pressure 129/66 04/12/24 11:21 Pulse Oximetry 97 04/12/24 11:21 Oxygen Delivery Room Air 04/12/24 08:35 Lab Data Lab results reviewed: Yes I reviewed the patient's lab results. 04/12/24 07:02 04/12/24 07:02 Labs: Lab Results 04/12/24 04/12/24 04/12/24 Range/Units 07:02 07:34 09:55 WBC 8.8 (4.5-10.0) K/mm3 RBC 5.96 (4.6-6.20) M/mm3 Hgb 16.7 (14.0-18.0) g/dL Hct 53.3 H (42.0-52.0) % MCV 89.4 (80-100) fl MCH 28.0 (26-34) pg MCHC 31.3 L (32-36) g/dl RDW 13.7 (11.5-14.5) % Plt Count 169 (150-375) k/mm3 MPV 9.8 (7.4-10.4) fl Immature Gran % (Auto) 0.5 (0-0.5) % Neut % (Auto) 68.8 (45.5-73.1) % Lymph % (Auto) 17.1 L (18.3-44.2) % [place] % (Auto) 8.1 (2.6-8.5) % Eos % (Auto) 5.0 H (0-4.4) % Baso % (Auto) 0.5 (0.2-1.2) % Lymph # (Auto) 1.51 (0.9-3.2) K/mm3 [place] # (Auto) 0.7 H (0.1-0.6) K/mm3 Eos # (Auto) 0.4 H (0-0.3) K/mm3 Baso # (Auto) 0.0 (0.0-0.1) K/mm3 Abs Immat Gran (auto) 0.04 H (0.00-0.031) K/mm3 Absolute Neuts (auto) 6.1 (1.3-6.7) K/mm3 Absolute Nucleated RBC 0.000 (0.0-0.012) K/mm3 Nucleated RBC % 0.0 (0.0-0.2) % PT 14.6 (11.1-14.7) Seconds INR 1.1 APTT 30.4 (22.3-36.8) Seconds Sodium 138 (137-145) mmol/L Potassium 4.5 (3.4-5.0) mmol/L Chloride 100 (98-107) mmol/L Carbon Dioxide 31 H (22-30) mmol/L Anion Gap 7 (4-12) mmol/L BUN 21 H (9-20) mg/dL Creatinine 0.80 (0.7-1.3) mg/dL Estim Creat Clear Calc 82 ml/min Estimated GFR > 60 (59 - ) Glucose 134 H (65-110) mg/dL Calcium 9.3 (8.4-10.2) mg/dL Total Bilirubin 0.7 (0.2-1.3) mg/dL AST 19 (17-59) U/L ALT 24 (6-50) U/L Alkaline Phosphatase 93 (38-126) U/L Troponin I < 0.012 < 0.012 (0.000-0.034) ng/mL Total Protein 8.0 (6.3-8.2) g/dL Albumin 4.3 (3.5-5.1) g/dL Lipase 415 H (23-300) U/L Influenza A (RT-PCR) Negative (Negative) Influenza B (RT-PCR) Negative (Negative) RSV (RT-PCR) Negative (Negative) SARS-CoV-2 RNA (RT-PCR) Negative (Negative) Imaging Data Radiologist's impression: Impressions Chest X-Ray 04/12/24 07:37 Impression: Normal chest. Discharge Plan Discharge Clinical Impression: COPD exacerbation Patient Disposition: Home, Self-Care Condition: Stable Instructions: Antibiotic Form, COPD (Chronic Obstructive Pulmonary Disease) (DC), Pneumonia (ED) Additional Instructions: Antibiotics as directed until completed. Prednisone as directed until completed. Albuterol inhaler with spacer as needed for shortness of breath. Tessalon Perles for cough. I do recommend close follow-up with your primary care physician in additional follow-up with pulmonology. If you have any worsening symptoms then please call or return to the emergency department. Patient Language: [place] Prescriptions: New azithromycin 250 mg tablet See Rx Instructions .ROUTE .COMPLEX Qty: 6 0RF Rx Instructions: For 250 mg dose pack: take 500 mg today (day 1), then 250 mg for 4 days (days 2-5) benzonatate 100 mg capsule 100 mg PO TID PRN (Reason: cough) Qty: 14 0RF albuterol sulfate 90 mcg/actuation HFA aerosol inhaler 1 puff inhalation QID Qty: 6.7 0RF amoxicillin-pot clavulanate 875-125 mg tablet 1 tablet PO Q12H 7 Days Qty: 14 0RF prednisone 50 mg tablet 50 mg PO DAILY 5 Days Qty: 5 0RF No Action dutasteride [Avodart] 0.5 mg capsule 0.5 mg PO DAILY Timoptic Ocudose (PF) 0.5 % dropperette 1 drop EACH EYE DAILY albuterol sulfate [Ventolin HFA] 90 mcg/actuation HFA aerosol inhaler 1 puff inhalation Q4H PRN docusate sodium [Stool Softener] 100 mg capsule 100 mg PO DAILY lisinopril 20 mg tablet 20 mg PO DAILY Qty: 90 3RF Follow-up/Referrals: Sheron Nash MD [Physician] - iCsco Dumont DO [Primary Care Provider] -
[2024-04-12 08:21] LABS: Influenza A QL RT-PCR Negative (Negative); Influenza B QL RT-PCR Negative (Negative); RSV RNA, RT-PCR Negative (Negative); SARS-CoV-2 RNA PCR Negative (Negative)
[2024-04-12] MEDS: ALBUTEROL SULFATE NEB 2.5 MG/3 ML INH 5 MG INHALATION (09:08)
[2024-04-12 10:23] LABS: Troponin I < 0.012 ng/mL (0.000-0.034)
== END 2024-04-12 11:23 | disposition home or self-care (01) ==
PROVIDERS: Student in an Organized Health Care Education/Training Program; Emergency Provider Emergency Medicine; PCP Internal Medicine
DX: J44.1 Chronic obstructive pulmonary disease with (acute) exacerbation (principal); Z20.822 Contact with and (suspected) exposure to COVID-19
CPT/HCPCS: 36415; 71046; 80053; 83690; 84484; 85025; 85610; 85730; 87637; 93005; 94640; 99284

== ENCOUNTER 2024-04-13 13:15 | Inpatient (IN) | payer MEDICARE, OTHER, SELFPAY ==
--- NOTE | ~2024-04-13 | XR_ITS ---
CHEST RADIOGRAPH, PA AND LATERAL CLINICAL HISTORY: dyspnea . COMPARISON: 04/12/2024 TECHNIQUE: PA and lateral views of the chest. FINDINGS The cardiomediastinal silhouette is unremarkable. The lungs are clear. Visualized osseous structures and soft tissues are unremarkable. IMPRESSION: No focal infiltrate or effusion. Reviewed, dictated and finalized at location [facility]
[2024-04-13 13:17] VITALS: BP 159/71; PULSE 93; RESP 20; TEMP 36.5; O2SAT 97
--- OUTSIDE RECORDS SUMMARY | 2024-04-13 14:13 | XMS_ITS | Clinical Summary ---
Author Organization [facility] Address [address] [place] [address]. [place], [place] [id number] [place] [address] Care Team Providers Care Potline Monitor Name Role Phone Cisco Dumont DO Primary Care Provider [phone] Allergies No known active allergies Medications lisinopril [...] Department Care Team Description 04/01/2024 7:16 AM SOLUTIONS ARCHITECT - 04/01/2024 9:35 AM [facility] Emergency [facility] Emergency Room [address] [place] [address] Reilly Stewart MD Shortness Of Breath Discharge [...] Sex Assigned at Male 04/01/2024 7:39 AM SOLUTIONS ARCHITECT Legal Sex Male 7:12 AM SOLUTIONS ARCHITECT Gender Identity Not on file Sexual Orientation Not on file Last Filed Vital Signs Vital Sign Reading Time Taken Comments Blood Pressure 162/96 04/01/2024 9:15 AM SOLUTIONS ARCHITECT Pulse 70 04/01/2024 9:15 AM SOLUTIONS ARCHITECT Temperature 36.5 ??C (97.7 ??F) 04/01/2024 9:15 AM CS T Respiratory Rate 18 04/01/2024 9:15 AM SOLUTIONS ARCHITECT Oxygen Saturation 94% 04/01/2024 9:15 AM SOLUTIONS ARCHITECT Inhaled Oxygen Concentration - - Weight 114.3 kg (251 lb 15.8 oz) 04/01/2024 7:13 AM SOLUTIONS ARCHITECT Height 180.3 cm (5' 11 ) 04/01/2024 7:13 AM SOLUTIONS ARCHITECT Body Mass Index 35.14 04/01/2024 7:13 AM SOLUTIONS ARCHITECT Plan of Treatment Health Maintenance Due Date [...] XR CHEST PA+LAT STAT 04/01/2024 8:20 AM SOLUTIONS ARCHITECT ECG 12-LEAD Routine 04/01/2024 7:35 AM SOLUTIONS ARCHITECT PRO-BRAIN NATRIURETIC PEPTIDE STAT 04/01/2024 7:18 AM SOLUTIONS ARCHITECT TROPONIN, QUANT STAT 04/01/2024 7:18 AM SOLUTIONS ARCHITECT COMPREHENSIVE METABOLIC PANEL STAT 04/01/2024 7:18 AM SOLUTIONS ARCHITECT CBC W/DIFF AUTOMATED STAT 04/01/2024 7:18 AM SOLUTIONS ARCHITECT from Last 3 Months Results * XR CHEST PA+LAT (04/01/2024 8:20 AM SOLUTIONS ARCHITECT) Anatomical Region Laterality Modality Chest Radiographic Cuca ging 04/01/2024 8:24 AM SOLUTIONS ARCHITECT Impressions 04/01/2024 8:27 AM SOLUTIONS ARCHITECT IMPRESSION: 1. No focal consolidation or acute findings. 2. Nodular densities in the left lung base, favored to reflect calcified granulomas. Recommend nonemergent outpatient CT chest without contrast, if not previously performed, for confirmation. Ordered By: REILLY STEWART Interpreted By: Srinivasan Dubon MD, 04/01/2024 8:24 AM Narrative 04/01/2024 8:27 AM SOLUTIONS ARCHITECT [facility] [address] [place] [id number] XR CHEST PA+LAT INDICATION: dyspnea ?? TECHNIQUE: PA and lateral views of the chest. COMPARISON: None FINDINGS: The cardiomediastinal silhouette is within normal limits. There is no pulmonary consolidation. Nodular densities project over the left lung base, likely reflective of granulomas. No pleural effusions or pneumothorax. No acute osseous abnormality. Moderate thoracic spondylosis. Procedure Note Srinivasan Dubon MD - 04/01/2024 [facility] [address] [place] [address] XR CHEST PA+LAT INDICATION: dyspnea TECHNIQUE: PA [...] * ECG 12 lead (04/01/2024 7:35 AM SOLUTIONS ARCHITECT) 04/01/2024 7:35 AM SOLUTIONS ARCHITECT Narrative [facility] ([facility]) RAD - 04/01/2024 8:19 AM SOLUTIONS ARCHITECT ?[facility] ? Test Date: ?2024-04-01 Pat Name: ? [place] DOMINGUEZ ? Department: ?? 85 ? Room: ? EXAM 202 Gender: ? M ?Mandolin Repair Person: ?? : ?1945 ? Requested By: REILLY STEWART Order Number: [id number] ? Reading : ?? Carlo Snow ? Measurements Intervals ?[place] ? Rate: ? 61 ? P: ?79 MA: ? 162 ?QRS: ?104 QRSD: ? 97 ? T: ?60 QT: ? 369 ? QTc: ?374 ? Interpretive Statements SINUS RHYTHM RIGHT AXIS DEVIATION ??[QRS AXIS > 100] No previous ECG available for comparison TIONS ARCHITECT Procedure Note Carlo Snow MD - 04/01/2024 [facility] Test Date: 2024-04-01 Pat Name: [place] DOMINGUEZ Department: 85 Room: EXAM 202 Gender: M Mandolin Repair Person: : 1945 Requested By: REILLY STEWART Order Number: [id number] Balaji MD: Carlo Snow Measurements Intervals [place] Rate: 61 P: 79 MA: 162 QRS: 104 QRSD: 97 T: 60 QT: 369 QTc: 374 Interpretive Statements SINUS RHYTHM RIGHT AXIS DEVIATION [QRS AXIS > 100] No previous ECG available for comparison TIONS ARCHITECT Reilly Stewart MD ECG ORDERABLES Final Resu lt Performing Organization Address [facility] Co de Phone Number [facility] ([facility]) RAD * PRO-BRAIN NATRIURETIC PEPTIDE (04/01/2024 7:18 AM SOLUTIONS ARCHITECT) PRO-B TYPE NATRIURETIC PEPTIDE 119 <450 PG/ML 04/01/2024 7:57 AM SOLUTIONS ARCHITECT [facility] Comment: CUT POINTS ESTABLISHED BY [...] 72% FOR ACUTE CHF. 04/01/2024 7:18 AM SOLUTIONS ARCHITECT us Reilly Stewatr MD LABORATORY Final Resu lt Performing Organization Address [facility] Co de Phone Number [facility] [address] [place] [address], [place] [phone] * (ABNORMAL) COMPREHENSIVE METABOLIC PANEL (04/01/2024 7:18 AM SOLUTIONS ARCHITECT) GLUCOSE 94 70 - 99 MG/DL 04/01/2024 7:57 AM SOLUTIONS ARCHITECT [facility] BUN 16 7 - 18 MG/DL 04/01/2024 7:57 AM SOLUTIONS ARCHITECT [facility] CREATININE S/P/B 1.04 0.7 - 1.3 MG/DL 04/01/2024 7:57 AM SOLUTIONS ARCHITECT [facility] SODIUM S/P/B 139 136 - 145 MMOL/L 04/01/2024 7:57 AM [facility] POTASSIUM S/P/B 4.1 3.5 - 5.1 MMOL/L 04/01/2024 7:57 AM [facility] CHLORIDE S/P/B 103 100 - 108 MMOL/L 04/01/2024 7:57 AM [facility] CO2 33.9(H) 21 - 32 MMOL/L 04/01/2024 7:57 AM [facility] CALCIUM S/P/B 9.1 8.5 - 10.1 MG/DL 04/01/2024 7:57 AM [facility] BILIRUBIN TOTAL S/P/B 0.7 0.2 - 1.2 MG/DL 04/01/2024 7:57 AM [facility] TOTAL PROTEIN S/P/B 7.5 6.4 - 8.2 G/DL 04/01/2024 7:57 AM [facility] ALBUMIN S/P/B 3.8 3.4 - 5.0 G/DL 04/01/2024 7:57 AM [facility] AST 17 15 - 37 U/L 04/01/2024 7:57 AM [facility] ALT 13(L) 16 - 60 U/L 04/01/2024 7:57 AM [facility] ALKALINE PHOSPHATASE S/P/B 111 50 - 136 U/L 04/01/2024 7:57 AM [facility] ANION GAP 2.1(L) 5 - 15 MMOL/L 04/01/2024 7:57 AM [facility] BUN CREATININE RATIO 15.4 6 - 26 04/01/2024 7:57 AM [facility] A/G RATIO 1.0 1.0 - 2.0 RATIO 04/01/2024 7:57 AM [facility] GFR ESTIMATE 73(L) >90 ML/MIN/1.7 3 M2 04/01/2024 7:57 AM [facility] Comment: NOTE: eGFR is not calculated for patients <18 years of age. This is an estimated GFR calculation using the new CKD EPI creatinine equation without race and so does not require a correction factor for race. This estimated GFR should not be used for calculating drug doses. 04/01/2024 7:18 AM SOLUTIONS ARCHITECT us Reilly Stewart MD LABORATORY Final Resu lt [facility] [address] [place] [id number], [place] [phone] * CBC W/DIFF AUTOMATED (04/01/2024 7:18 AM SOLUTIONS ARCHITECT) WBC 7.54 4.4 - 11.0 x10'3/uL 04/01/2024 7:42 AM [facility] RBC 5.53 4.50 - 5.90 x10'6/uL 04/01/2024 7:42 AM [facility] HGB 15.7 14.0 - 17.5 G/DL 04/01/2024 7:42 AM [facility] HCT 49.2 41.5 - 50.4 % 04/01/2024 7:42 AM [facility] MCV 89.0 80.0 - 96.0 FL 04/01/2024 7:42 AM [facility] MCH 28.4 26.5 - 31.4 PG 04/01/2024 7:42 AM [facility] MCHC 31.9 31.9 - 34.8 G/DL 04/01/2024 7:42 AM [facility] RDW 13.8 12.3 - 14.3 % 04/01/2024 7:42 AM [facility] PLT 185 151 - 353 x10'3/uL 04/01/2024 7:42 AM [facility] MPV 9.7 9.7 - 11.9 FL 04/01/2024 7:42 AM [facility] RBC MORPHOLOGY NORMAL 04/01/2024 7:42 AM [facility] PLT MORPH. NORMAL 04/01/2024 7:42 AM [facility] WBC MORPHOLOGY NORMAL 04/01/2024 7:42 AM [facility] LYMPHOCYTES % 21.8 15.8 - 45.0 % 04/01/2024 7:42 AM [facility] NEUTROPHILS % 62.6 42.1 - 71.9 % 04/01/2024 7:42 AM [facility] MONOCYTES % 11.3 5.7 - 12.5 % 04/01/2024 7:42 AM [facility] EOSINOPHILS 3.2 0.0 - 5.6 % 04/01/2024 7:42 AM [facility] BASOPHILS 0.8 0.0 - 1.3 % 04/01/2024 7:42 AM [facility] ABS. NEUTROPHILS 4.73 1.40 - 6.00 x10'3/uL 04/01/2024 7:42 AM [facility] IMMATURE GRANS % 0.3 0.0 - 0.5 % 04/01/2024 7:42 AM [facility] ABS. LYMPHOCYTES 1.64 0.80 - 4.70 x10'3/uL 04/01/2024 7:42 AM SOLUTIONS ARCHITECT [facility] 04/01/2024 7:18 AM SOLUTIONS ARCHITECT Reilly Stewart MD LABORATORY Final Resu lt Performing Organization Address City/[facility]/ZIP Co de Phone Number [facility] [address] [place] [address], [place] [phone] * TROPONIN, QUANT (04/01/2024 7:18 AM SOLUTIONS ARCHITECT) TROPONIN I HIGH SENSITIVITY 5 0 - 75 ng/L 04/01/2024 7:51 AM SOLUTIONS ARCHITECT [facility] Comment: HIGH DOSES OF BIOTIN, TROPONIN-SPECIFIC AUTOANTIBODIES, AND ANTIBODY THERAPY CONTAINING HAMA MAY INTERFERE WITH THIS TEST RESULT. CORRELATION TO CLINICAL HISTORY AND PRESENTATION RECOMMENDED. 04/01/2024 7:18 AM SOLUTIONS ARCHITECT Reilly Stewart MD LABORATORY Final Resu lt Performing Organization Address [facility] Co de Phone Number [facility] [address] [place] [address], [place] [phone] from Last 3 Months Insurance [place]IC[place] [id number] Care Teams Potline Monitor Relationship Specialty Start Date End Date Cisco Dumont DO [address] [place] [id number] PCP - General INTERNAL MEDICINE 04/01/24
--- NOTE | 2024-04-13 17:10 | ECG_ITS ---
Test Date: 2024-04-13 19:43:51 Measurements Intervals [place] Rate: 67 P: 74 SC: 149 QRS: 99 QRSD: 94 T: 63 QT: 382 QTc: 405 Interpretive Statements SINUS RHYTHM BORDERLINE RIGHT AXIS DEVIATION [QRS AXIS > 90] LOW QRS VOLTAGE IN PRECORDIAL LEADS [QRS DEFLECTION < 1.0 mV IN CHEST LEADS] Compared to ECG 04/12/2024 06:57:36 Low QRS voltage now present Electronically Signed On 04-14-2024 11:34:30 TUBE BUILDER by Jamal Grant M.D.
--- NOTE | 2024-04-13 17:11 | ED.SOB ---
HPI - SOB/Dyspnea General Chief Complaint: Shortness of Breath/Dyspnea <Maricarmen Meléndez PA-C - Last Filed: 04/13/24 17:12> Stated Complaint: cant breath <Maricarmen Meléndez PA-C - Last Filed: 04/13/24 17:12> Time Seen by Provider: 04/13/24 20:29 <Maricarmen Meléndez PA-C - Last Filed: 04/13/24 17:12> Focused HPI: 78-year-old male with history of COPD presents emergency department for difficulty breathing. Patient was seen in our ED yesterday and diagnosed with COPD exacerbation, sent home with antibiotics, albuterol and steroids which she has been taking without improvement. Reports a productive cough. No chest pain. Endorses some lower extremity edema. GENERAL: Well-appearing, well-nourished, and in no acute distress. HEAD: Normocephalic, atraumatic. CHEST: Decreased lung sounds throughout all lung porras with minimal wheezing in the right lower base and left lung. Satting 99% on room air in no distress. HEART: Regular rate and rhythm.? NEURO: ?Alert and oriented x3. Patient screened in triage and initial orders placed.? ?Additional care and disposition to be based upon?diagnostic testing and treatment. <Maricarmen Meléndez PA-C - Last Filed: 04/13/24 17:12> History of Present Illness HPI Narrative: Agree with the HPI above, would like to add that patient had stop smoking over 30 years prior but did have significant exposure in [place] to chemicals, inhalant another pulmonary irritants. Has not followed up or seen any integration consultant. Has felt improvement with his nebulizer treatments upon discharge yesterday but returned with worsening complaints. <Campos To MD - Last Filed: 04/13/24 22:37> Related Data Home Medications: Home Medications ?Medication ?Instructions ?Recorded ?Confirmed ?Last Taken ?Type dutasteride 0.5 mg capsule 0.5 mg PO DAILY 04/26/19 01/25/24 Unknown History (Avodart) timolol maleate (PF) 0.5 % eye 1 drop ophthalmic (eye) DAILY 04/26/19 01/25/24 Unknown History drops in a dropperette (Timoptic Ocudose (PF)) docusate sodium 100 mg capsule 100 mg PO DAILY 09/22/22 01/25/24 Unknown History (Stool Softener) albuterol sulfate 90 mcg/actuation 1 puff inhalation Q4H PRN 04/06/24 Unknown History aerosol inhaler (Ventolin HFA) <Maricarmen Meléndez PA-C - Last Filed: 04/13/24 17:12> Allergies/Adverse Reactions: Allergies Allergy/AdvReac Type Severity Reaction Status Date / Time No Known Allergies Allergy Verified 04/12/24 06:47 <Maricarmen Meléndez PA-C - Last Filed: 04/13/24 17:12> Review of Systems Review of Systems: As reviewed above in HPI <Campos To MD - Last Filed: 04/13/24 22:37> [facility] Family History Family History: Family History Sibling Family history of lung cancer, Onset Age: 56 Patient's brother is Accident caused by farm tractor Mother Cerebrovascular accident Macular degeneration Father Acute myocardial infarction Sibling No problems noted. Other Diabetes mellitus Family history of malignant neoplasm Hypertension <Maricarmen Meléndez PA-C - Last Filed: 04/13/24 17:12> Social History Social History: Social History Smoking packs per day: 1 Smoking cigarettes per day: 20.0 Years smoked: 20 Smoking pack-years: 20.00 Smoking status: Former smoker Tobacco type: cigarettes Second hand tobacco smoke exposure: No Smoking end date: 03/16/75 Alcohol intake: former Substance use: never Substance use type: does not use Do You Feel Safe in your Home?: Yes Lack of Transportation: No Lack of Food: Never True Current Housing: I Have Housing Concerned About Future Housing: No Difficulty Paying Gas/Electric Bills: No Difficulty Paying for Meds: No Currently Unemployed: No Education: Trade/Vocational Certificate Difficulty w/ Childcare or Family Care: No Living arrangements: with family Occupation/Education: retired 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 Mucous membranes moist. NECK: Supple. CHEST: Diffuse end-expiratory wheezing left greater than right, prolonged expiratory phase, good air entry. No tachypnea or accessory muscle use HEART: [Regular rate and rhythm]. No murmur heard. [Normal peripheral pulses.] ABDOMEN: [Soft, nondistended], [nontender], [No rigidity or guarding] EXTREMITIES: Normal range of motion. [No edema.] SKIN: Warm, dry, no rash. NEURO: [No focal deficits]. Alert and oriented [x3.] PSYCH: [Normal mood and affect.] <Campos To MD - Last Filed: 04/13/24 22:37> Course Vital Signs Vital signs: Vital Signs Temperature 36.5 C 04/13/24 13:17 Pulse Rate 93 04/13/24 13:17 Respiratory Rate 20 04/13/24 13:17 Blood Pressure 159/71 H 04/13/24 13:17 Pulse Oximetry 97 04/13/24 13:17 Oxygen Delivery Room Air 04/13/24 13:17 Temperature 36.5 C 04/13/24 13:17 Pulse Rate 68 04/13/24 21:36 Respiratory Rate 18 04/13/24 21:36 Blood Pressure 108/65 04/13/24 21:36 Pulse Oximetry 97 04/13/24 21:36 Oxygen Delivery Room Air 04/13/24 20:46 <Maricarmen Meléndez PA-C - Last Filed: 04/13/24 17:12> Vital Signs Temperature 36.5 C 04/13/24 13:17 Pulse Rate 93 04/13/24 13:17 Respiratory Rate 20 04/13/24 13:17 Blood Pressure 159/71 H 04/13/24 13:17 Pulse Oximetry 97 04/13/24 13:17 Oxygen Delivery Room Air 04/13/24 13:17 Temperature 36.5 C 04/13/24 13:17 Pulse Rate 68 04/13/24 21:36 Respiratory Rate 18 04/13/24 21:36 Blood Pressure 108/65 04/13/24 21:36 Pulse Oximetry 97 04/13/24 21:36 Oxygen Delivery Room Air 04/13/24 20:46 <Campos To MD - Last Filed: 04/13/24 22:37> MDM - SOB/Dyspnea MDM Narrative Medical decision making narrative: This is a 78-year-old male presenting to the emergency department for evaluation of difficulty in breathing. He states that he was seen and treated here yesterday for a COPD exacerbation although he has never formally been diagnosed with this. He has had exposures to pulmonary irritants over at [place] but quit smoking 30 years ago. He is profoundly wheezy but moving good air, not hypoxic, tachypneic or in any respiratory distress, but he does have some conversational dyspnea. Patient was given breathing treatments here with albuterol, Atrovent, magnesium self and steroids. I placed my community-acquired antibiotic coverage for chronic lung disease and patient was re-evaluated frequently. He had improvement in his aeration and was no longer as wheezy on my repeat evaluation. States he felt more comfortable. Given his recurrent symptomatology and 2 ED visits in the past 24 hours I believe he would benefit from an observation admission at this time for continued treatment, continue nebulizers and steroids and repeat evaluations. Patient felt comfortable with this plan of care. Scheduled nebulizers and steroids have been ordered. Patient's workup revealed a slight leukocytosis of 13.5 but no anemia. Chest x-ray without concerning findings for pneumonia so this leukocytosis likely secondary to his steroids recently. Normal coagulation studies, normal electrolyte profile, renal function and hepatic function panel. Negative COVID flu and RSV panel. EKG was obtained which shows sinus rhythm without any ST segment elevations, depressions or inversions. I discussed the case with the hospitalist Service Dr. Davis who accepted the patient to a medical-surgical bed at this time. <Campos To MD - Last Filed: 04/13/24 22:37> Medical Records Attestation: I reviewed the patient's medical records. <Campos To MD - Last Filed: 04/13/24 22:37> Lab Data Attestation: I reviewed the patient's lab results. <Campos To MD - Last Filed: 04/13/24 22:37> Result diagrams: 04/13/24 19:52 04/13/24 19:52 <Maricarmen Meléndez PA-C - Last Filed: 04/13/24 17:12> Labs: Lab Results 04/13/24 Range/Units 19:52 WBC 13.5 H (4.5-10.0) K/mm3 RBC 5.69 (4.6-6.20) M/mm3 Hgb 15.9 (14.0-18.0) g/dL Hct 51.2 (42.0-52.0) % MCV 90.0 (80-100) fl MCH 27.9 (26-34) pg MCHC 31.1 L (32-36) g/dl RDW 14.1 (11.5-14.5) % Plt Count 195 (150-375) k/mm3 MPV 10.3 (7.4-10.4) fl Immature Gran % (Auto) 0.4 (0-0.5) % Neut % (Auto) 63.1 (45.5-73.1) % Lymph % (Auto) 19.7 (18.3-44.2) % Williamson % (Auto) 10.7 H (2.6-8.5) % Eos % (Auto) 5.5 H (0-4.4) % Baso % (Auto) 0.6 (0.2-1.2) % Lymph # (Auto) 2.66 (0.9-3.2) K/mm3 Williamson # (Auto) 1.4 H (0.1-0.6) K/mm3 Eos # (Auto) 0.8 H (0-0.3) K/mm3 Baso # (Auto) 0.1 (0.0-0.1) K/mm3 Abs Immat Gran (auto) 0.05 H (0.00-0.031) K/mm3 Absolute Neuts (auto) 8.5 H (1.3-6.7) K/mm3 Absolute Nucleated RBC 0.000 (0.0-0.012) K/mm3 Nucleated RBC % 0.0 (0.0-0.2) % Sodium 139 (137-145) mmol/L Potassium 3.8 (3.4-5.0) mmol/L Chloride 99 (98-107) mmol/L Carbon Dioxide 31 H (22-30) mmol/L Anion Gap 9 (4-12) mmol/L BUN 19 (9-20) mg/dL Creatinine 0.85 (0.7-1.3) mg/dL Estim Creat Clear Calc 80 ml/min Estimated GFR > 60 (59 - ) Glucose 104 (65-110) mg/dL Calcium 9.5 (8.4-10.2) mg/dL Total Bilirubin 0.7 (0.2-1.3) mg/dL AST 28 (17-59) U/L ALT 28 (6-50) U/L Alkaline Phosphatase 82 (38-126) U/L NT-Pro-B Natriuret Pep 64 (19.9-100) pg/mL Total Protein 7.0 (6.3-8.2) g/dL Albumin 4.3 (3.5-5.1) g/dL Influenza A (RT-PCR) Negative (Negative) Influenza B (RT-PCR) Negative (Negative) RSV (RT-PCR) Negative (Negative) SARS-CoV-2 RNA (RT-PCR) Negative (Negative) <Maricarmen Meléndez PA-C - Last Filed: 04/13/24 17:12> Lab Results 04/13/24 Range/Units 19:52 WBC 13.5 H (4.5-10.0) K/mm3 RBC 5.69 (4.6-6.20) M/mm3 Hgb 15.9 (14.0-18.0) g/dL Hct 51.2 (42.0-52.0) % MCV 90.0 (80-100) fl MCH 27.9 (26-34) pg MCHC 31.1 L (32-36) g/dl RDW 14.1 (11.5-14.5) % Plt Count 195 (150-375) k/mm3 MPV 10.3 (7.4-10.4) fl Immature Gran % (Auto) 0.4 (0-0.5) % Neut % (Auto) 63.1 (45.5-73.1) % Lymph % (Auto) 19.7 (18.3-44.2) % Williamson % (Auto) 10.7 H (2.6-8.5) % Eos % (Auto) 5.5 H (0-4.4) % Baso % (Auto) 0.6 (0.2-1.2) % Lymph # (Auto) 2.66 (0.9-3.2) K/mm3 Williamson # (Auto) 1.4 H (0.1-0.6) K/mm3 Eos # (Auto) 0.8 H (0-0.3) K/mm3 Baso # (Auto) 0.1 (0.0-0.1) K/mm3 Abs Immat Gran (auto) 0.05 H (0.00-0.031) K/mm3 Absolute Neuts (auto) 8.5 H (1.3-6.7) K/mm3 Absolute Nucleated RBC 0.000 (0.0-0.012) K/mm3 Nucleated RBC % 0.0 (0.0-0.2) % Sodium 139 (137-145) mmol/L Potassium 3.8 (3.4-5.0) mmol/L Chloride 99 (98-107) mmol/L Carbon Dioxide 31 H (22-30) mmol/L Anion Gap 9 (4-12) mmol/L BUN 19 (9-20) mg/dL Creatinine 0.85 (0.7-1.3) mg/dL Estim Creat Clear Calc 80 ml/min Estimated GFR > 60 (59 - ) Glucose 104 (65-110) mg/dL Calcium 9.5 (8.4-10.2) mg/dL Total Bilirubin 0.7 (0.2-1.3) mg/dL AST 28 (17-59) U/L ALT 28 (6-50) U/L Alkaline Phosphatase 82 (38-126) U/L NT-Pro-B Natriuret Pep 64 (19.9-100) pg/mL Total Protein 7.0 (6.3-8.2) g/dL Albumin 4.3 (3.5-5.1) g/dL Influenza A (RT-PCR) Negative (Negative) Influenza B (RT-PCR) Negative (Negative) RSV (RT-PCR) Negative (Negative) SARS-CoV-2 RNA (RT-PCR) Negative (Negative) <Campos To MD - Last Filed: 04/13/24 22:37> Imaging Data Attestation: I personally reviewed and interpreted this imaging study as follows: <Campos To MD - Last Filed: 04/13/24 22:37> My impression: Impressions Chest X-Ray 04/13/24 17:33 IMPRESSION: No focal infiltrate or effusion. <Campos To MD - Last Filed: 04/13/24 22:37> Discharge Plan Discharge Clinical Impression: Acute exacerbation of chronic obstructive pulmonary disease <Maricarmen Meléndez PA-C - Last Filed: 04/13/24 17:12> Patient Disposition: Still a Patient <Maricarmen Meléndez PA-C - Last Filed: 04/13/24 17:12> Condition: Stable <Maricarmen Meléndez PA-C - Last Filed: 04/13/24 17:12> Patient Language: Welsh <Maricarmen Meléndez PA-C - Last Filed: 04/13/24 17:12> Prescriptions: No Action dutasteride [Avodart] 0.5 mg capsule 0.5 mg PO DAILY Timoptic Ocudose (PF) 0.5 % dropperette 1 drop EACH EYE DAILY albuterol sulfate [Ventolin HFA] 90 mcg/actuation HFA aerosol inhaler 1 puff inhalation Q4H PRN docusate sodium [Stool Softener] 100 mg capsule 100 mg PO DAILY azithromycin 250 mg tablet See Rx Instructions .ROUTE .COMPLEX Qty: 6 0RF Rx Instructions: For 250 mg dose pack: take 500 mg today (day 1), then 250 mg for 4 days (days 2-5) benzonatate 100 mg capsule 100 mg PO TID PRN (Reason: cough) Qty: 14 0RF albuterol sulfate 90 mcg/actuation HFA aerosol inhaler 1 puff inhalation QID Qty: 6.7 0RF amoxicillin-pot clavulanate 875-125 mg tablet 1 tablet PO Q12H 7 Days Qty: 14 0RF prednisone 50 mg tablet 50 mg PO DAILY 5 Days Qty: 5 0RF lisinopril 20 mg tablet 20 mg PO DAILY Qty: 90 3RF <Maricarmen Meléndez PA-C - Last Filed: 04/13/24 17:12> Follow-up/Referrals: Cisco Dumont DO [Primary Care Provider] - <Maricarmen Meléndez PA-C - Last Filed: 04/13/24 17:12> Time of Disposition: 22:37 <Maricarmen Meléndez PA-C - Last Filed: 04/13/24 17:12> 22:37 <Campos To MD - Last Filed: 04/13/24 22:37>
--- NOTE | 2024-04-13 17:29 | PCRCNOTE ---
Respiratory to wait to draw ABG until patient is in room per Ernesto Trinh RN and Dr. Moore. RN will call when patient gets a room.
[2024-04-13 19:58] LABS: Basophils Absolute Auto 0.1 K/mm3 (0.0-0.1); Basophils Percent Auto 0.6 % (0.2-1.2); Eosinophils Absolute Auto 0.8 K/mm3 (0-0.3); Eosinophils Percent Auto 5.5 % (0-4.4); Hematocrit 51.2 % (42.0-52.0); Hemoglobin 15.9 g/dL (14.0-18.0); Immature Granulocyte Absolute 0.05 K/mm3 (0.00-0.031); Immature Granulocyte Percent A 0.4 % (0-0.5); Lymphocytes Absolute Auto 2.66 K/mm3 (0.9-3.2); Lymphocytes Percent Auto 19.7 % (18.3-44.2); Mean Corpuscular HGB Conc 31.1 g/dl (32-36); Mean Corpuscular Hemoglobin 27.9 pg (26-34); Mean Platelet Volume 10.3 fl (7.4-10.4); Monocytes Absolute Auto 1.4 K/mm3 (0.1-0.6); Monocytes Percent Auto 10.7 % (2.6-8.5); Neutrophils Absolute Auto 8.5 K/mm3 (1.3-6.7); Neutrophils Percent Auto 63.1 % (45.5-73.1); Platelet Count Result 195 k/mm3 (150-375); Red Blood Count 5.69 M/mm3 (4.6-6.20); Red Cell Distribution Width 14.1 % (11.5-14.5); White Blood Count 13.5 K/mm3 (4.5-10.0)
[2024-04-13 20:10] LABS: Alanine Aminotransferase 28 U/L (6-50); Albumin Level 4.3 g/dL (3.5-5.1); Alkaline Phosphatase 82 U/L (38-126); Anion Gap 9 mmol/L (4-12); Aspartate Amino Transferase 28 U/L (17-59); Bilirubin,Total 0.7 mg/dL (0.2-1.3); Blood Urea Nitrogen 19 mg/dL (9-20); Calcium 9.5 mg/dL (8.4-10.2); Carbon Dioxide 31 mmol/L (22-30); Chloride 99 mmol/L (98-107); Estimated CRCL calculation 80 ml/min; Estimated Glomerular Filt Rate > 60; Glucose 104 mg/dL (65-110); Potassium 3.8 mmol/L (3.4-5.0); Sodium 139 mmol/L (137-145)
[2024-04-13 20:20] LABS: NT Pro B Type Natriuretic Pept 64 pg/mL (19.9-100)
[2024-04-13 20:35] LABS: Influenza A QL RT-PCR Negative (Negative); Influenza B QL RT-PCR Negative (Negative); RSV RNA, RT-PCR Negative (Negative); SARS-CoV-2 RNA PCR Negative (Negative)
[2024-04-13 20:46] VITALS: BP 132/84; PULSE 96; RESP 18; O2SAT 95
[2024-04-13 21:01] VITALS: PULSE 66; RESP 18
[2024-04-13] MEDS: ALBUTEROL SULFATE NEB 2.5 MG/3 ML INH 10 MG INHALATION (21:01)
[2024-04-13] MEDS: IPRATROPIUM BR 0.02% INH SOLN 0.5 MG/2.5 ML VIAL 1 MG INHALATION (21:01)
[2024-04-13] MEDS: methylPREDNISolone SOD SUCC 40 MG VIAL IV PUSH (21:29)
[2024-04-13] MEDS: MAGNESIUM SULF 2 GM/WATER 50ML 2 GM/50 ML BAG IVPB (21:29)
[2024-04-13] MEDS: AZITHROMYCIN 500 MG/NS 250 ML 500 MG/250 ML BAG 250 MG IVPB (21:29)
--- OUTSIDE RECORDS SUMMARY | 2024-04-13 21:31 | XMS_ITS | Clinical Summary ---
Author Organization [facility] Address [address] [place] [address]. [place], [place] [address] [place] [address] Care Team Providers Care [facility] [employer] Name Role Phone Cisco Dumont DO Primary Care Provider [phone] Allergies No known active allergies Medications lisinopril [...] Department Care Team Description 04/01/2024 7:16 AM [employer] - 04/01/2024 9:35 AM [facility] Emergency [facility] Emergency Room [address] [place] [address] Reilly Stewart MD Shortness Of Breath Discharge [...] Sex Assigned at Male 04/01/2024 7:39 AM [employer] Legal Sex Male 7:12 AM [employer] Gender Identity Not on file Sexual Orientation Not on file Last Filed Vital Signs Vital Sign Reading Time Taken Comments Blood Pressure 162/96 04/01/2024 9:15 AM [employer] Pulse 70 04/01/2024 9:15 AM [employer] Temperature 36.5 ??C (97.7 ??F) 04/01/2024 9:15 AM CS T Respiratory Rate 18 04/01/2024 9:15 AM [employer] Oxygen Saturation 94% 04/01/2024 9:15 AM [employer] Inhaled Oxygen Concentration - - Weight 114.3 kg (251 lb 15.8 oz) 04/01/2024 7:13 AM [employer] Height 180.3 cm (5' 11 ) 04/01/2024 7:13 AM [employer] Body Mass Index 35.14 04/01/2024 7:13 AM [employer] Plan of Treatment Health Maintenance Due Date [...] XR CHEST PA+LAT STAT 04/01/2024 8:20 AM [employer] ECG 12-LEAD Routine 04/01/2024 7:35 AM [employer] PRO-BRAIN NATRIURETIC PEPTIDE STAT 04/01/2024 7:18 AM [employer] TROPONIN, QUANT STAT 04/01/2024 7:18 AM [employer] COMPREHENSIVE METABOLIC PANEL STAT 04/01/2024 7:18 AM [employer] CBC W/DIFF AUTOMATED STAT 04/01/2024 7:18 AM [employer] from Last 3 Months Results * XR CHEST PA+LAT (04/01/2024 8:20 AM [employer]) Anatomical Region Laterality Modality Chest Radiographic Cuca ging 04/01/2024 8:24 AM [employer] Impressions 04/01/2024 8:27 AM [employer] IMPRESSION: 1. No focal consolidation or acute findings. 2. Nodular densities in the left lung base, favored to reflect calcified granulomas. Recommend nonemergent outpatient CT chest without contrast, if not previously performed, for confirmation. Ordered By: REILLY STEWART Interpreted By: Srinivasan Dubon MD, 04/01/2024 8:24 AM Narrative 04/01/2024 8:27 AM [employer] [facility] [address] [place] [id number] XR CHEST PA+LAT INDICATION: dyspnea ?? TECHNIQUE: PA and lateral views of the chest. COMPARISON: None FINDINGS: The cardiomediastinal silhouette is within normal limits. There is no pulmonary consolidation. Nodular densities project over the left lung base, likely reflective of granulomas. No pleural effusions or pneumothorax. No acute osseous abnormality. Moderate thoracic spondylosis. Procedure Note Srinivasan Dubon MD - 04/01/2024 [facility] [address] [place] [address] XR CHEST PA+LAT INDICATION: dyspnea TECHNIQUE: PA [...] * ECG 12 lead (04/01/2024 7:35 AM [employer]) 04/01/2024 7:35 AM [employer] Narrative [facility] ([facility]) RAD - 04/01/2024 8:19 AM [employer] ?[facility] ? Test Date: ?2024-04-01 Pat Name: ? [place] DOMINGUEZ ? Department: ?? 85 ? Room: ? EXAM 202 Gender: ? 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 : ?1945 ? Requested By: REILLY STEWART Order Number: [id number] ? Reading : ?? Carlo Snow ? Measurements Intervals ?[place] ? Rate: ? 61 ? P: ?79 WV: ? 162 ?QRS: ?104 QRSD: ? 97 ? T: ?60 QT: ? 369 ? QTc: ?374 ? 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 ([facility]) RAD * PRO-BRAIN NATRIURETIC PEPTIDE (04/01/2024 7:18 AM [employer]) PRO-B TYPE NATRIURETIC PEPTIDE 119 <450 PG/ML 04/01/2024 7:57 AM [employer] [facility] Comment: CUT POINTS ESTABLISHED [...] 72% FOR ACUTE CHF. 04/01/2024 7:18 AM [employer] us Reilly Stewart MD LABORATORY Final Resu lt Performing Organization Address [facility] Co de Phone Number [facility] [address] [place] [address], [place] [phone] * (ABNORMAL) COMPREHENSIVE METABOLIC PANEL (04/01/2024 7:18 AM [employer]) GLUCOSE 94 70 - 99 MG/DL 04/01/2024 7:57 AM [employer] [facility] BUN 16 7 - 18 MG/DL 04/01/2024 7:57 AM [employer] [facility] CREATININE S/P/B 1.04 0.7 - 1.3 MG/DL 04/01/2024 7:57 AM [employer] [facility] SODIUM S/P/B 139 136 - 145 MMOL/L 04/01/2024 7:57 AM [facility] POTASSIUM S/P/B 4.1 3.5 - 5.1 MMOL/L 04/01/2024 7:57 AM [facility] CHLORIDE S/P/B 103 100 - 108 MMOL/L 04/01/2024 7:57 AM [facility] CO2 33.9(H) 21 - 32 MMOL/L 04/01/2024 7:57 AM [facility] CALCIUM S/P/B 9.1 8.5 - 10.1 MG/DL 04/01/2024 7:57 AM [facility] BILIRUBIN TOTAL S/P/B 0.7 0.2 - 1.2 MG/DL 04/01/2024 7:57 AM [facility] TOTAL PROTEIN S/P/B 7.5 6.4 - 8.2 G/DL 04/01/2024 7:57 AM [facility] ALBUMIN S/P/B 3.8 3.4 - 5.0 G/DL 04/01/2024 7:57 AM [facility] AST 17 15 - 37 U/L 04/01/2024 7:57 AM [facility] ALT 13(L) 16 - 60 U/L 04/01/2024 7:57 AM [facility] ALKALINE PHOSPHATASE S/P/B 111 50 - 136 U/L 04/01/2024 7:57 AM [facility] ANION GAP 2.1(L) 5 - 15 MMOL/L 04/01/2024 7:57 AM [facility] BUN CREATININE RATIO 15.4 6 - 26 04/01/2024 7:57 AM [facility] A/G RATIO 1.0 1.0 - 2.0 RATIO 04/01/2024 7:57 AM [facility] GFR ESTIMATE 73(L) >90 ML/MIN/1.7 3 M2 04/01/2024 7:57 AM [facility] Comment: NOTE: eGFR is not calculated for patients <18 years of age. This is an estimated GFR calculation using the new CKD EPI creatinine equation without race and so does not require a correction factor for race. This estimated GFR should not be used for calculating drug doses. 04/01/2024 7:18 AM [employer] us Reilly Stewart MD LABORATORY Final Resu lt [facility] [address] [place] [id number], [place] [phone] * CBC W/DIFF AUTOMATED (04/01/2024 7:18 AM [employer]) WBC 7.54 4.4 - 11.0 x10'3/uL 04/01/2024 7:42 AM [facility] RBC 5.53 4.50 - 5.90 x10'6/uL 04/01/2024 7:42 AM [facility] HGB 15.7 14.0 - 17.5 G/DL 04/01/2024 7:42 AM [facility] HCT 49.2 41.5 - 50.4 % 04/01/2024 7:42 AM [facility] MCV 89.0 80.0 - 96.0 FL 04/01/2024 7:42 AM [facility] MCH 28.4 26.5 - 31.4 PG 04/01/2024 7:42 AM [facility] MCHC 31.9 31.9 - 34.8 G/DL 04/01/2024 7:42 AM [facility] RDW 13.8 12.3 - 14.3 % 04/01/2024 7:42 AM [facility] PLT 185 151 - 353 x10'3/uL 04/01/2024 7:42 AM [facility] MPV 9.7 9.7 - 11.9 FL 04/01/2024 7:42 AM [facility] RBC MORPHOLOGY NORMAL 04/01/2024 7:42 AM [facility] PLT MORPH. NORMAL 04/01/2024 7:42 AM [facility] WBC MORPHOLOGY NORMAL 04/01/2024 7:42 AM [facility] LYMPHOCYTES % 21.8 15.8 - 45.0 % 04/01/2024 7:42 AM [facility] NEUTROPHILS % 62.6 42.1 - 71.9 % 04/01/2024 7:42 AM [facility] MONOCYTES % 11.3 5.7 - 12.5 % 04/01/2024 7:42 AM [facility] EOSINOPHILS 3.2 0.0 - 5.6 % 04/01/2024 7:42 AM [facility] BASOPHILS 0.8 0.0 - 1.3 % 04/01/2024 7:42 AM [facility] ABS. NEUTROPHILS 4.73 1.40 - 6.00 x10'3/uL 04/01/2024 7:42 AM [facility] IMMATURE GRANS % 0.3 0.0 - 0.5 % 04/01/2024 7:42 AM [facility] ABS. LYMPHOCYTES 1.64 0.80 - 4.70 x10'3/uL 04/01/2024 7:42 AM [employer] [facility] 04/01/2024 7:18 AM [employer] Reilly Stewart MD LABORATORY Final Resu lt Performing Organization Address City/[facility]/ZIP Co de Phone Number [facility] [address] [place] [address], [place] [phone] * TROPONIN, QUANT (04/01/2024 7:18 AM [employer]) TROPONIN I HIGH SENSITIVITY 5 0 - 75 ng/L 04/01/2024 7:51 AM [employer] [facility] Comment: HIGH DOSES OF BIOTIN, TROPONIN-SPECIFIC AUTOANTIBODIES, AND ANTIBODY THERAPY CONTAINING HAMA MAY INTERFERE WITH THIS TEST RESULT. CORRELATION TO CLINICAL HISTORY AND PRESENTATION RECOMMENDED. 04/01/2024 7:18 AM [employer] Reilly Stewart MD LABORATORY Final Resu lt Performing Organization Address [facility] Co de Phone Number [facility] [address] [place] [address], [place] [phone] from Last 3 Months Insurance [place]IC[place] [id number] Care Teams [employer] Relationship Specialty Start Date End Date Cisco Dumont DO [address] [place] [id number] PCP - General INTERNAL MEDICINE 04/01/24
[2024-04-13 21:36] VITALS: BP 108/65; PULSE 68; RESP 18; O2SAT 97
[2024-04-13 22:15] VITALS: PULSE 69; RESP 18
[2024-04-13] MEDS: DOXYCYCLINE 100 MG/NS 100 ML 100 MG/100 ML BAG IVPB (22:20)
--- NOTE | 2024-04-13 22:34 | PM.IMHP ---
H&P: HPI History of Present Illness Date/Time: 04/13/24 22:34 Chief Complaint: Shortness of breath Narrative: This is a 78-year-old male with past medical history significant for COPD/emphysema, hypertension, glaucoma. Patient presents for a 2nd time to the emergency room due to worsening shortness of breath and wheezing ongoing now for a week has been using his inhaler frequently with no improvement. Patient has had a cough nonproductive denies any fevers rigors or chills. Patient has been placed in observation for further evaluation management and treatment. CHEST RADIOGRAPH, PA AND LATERAL CLINICAL HISTORY: dyspnea . COMPARISON: 04/12/2024 TECHNIQUE: PA and lateral views of the chest. FINDINGS The cardiomediastinal silhouette is unremarkable. The lungs are clear. Visualized osseous structures and soft tissues are unremarkable. IMPRESSION: No focal infiltrate or effusion. Review of Systems Review of Systems: Shortness of breath, wheezing, chills, cough PMFSH Family History Family History Sibling Family history of lung cancer, Onset Age: 56 Patient's brother is Accident caused by farm tractor Mother Cerebrovascular accident Macular degeneration Father Acute myocardial infarction Sibling No problems noted. Other Diabetes mellitus Family history of malignant neoplasm Hypertension Social History Social History Smoking packs per day: 1 Smoking cigarettes per day: 20.0 Years smoked: 20 Smoking pack-years: 20.00 Smoking status: Former smoker Tobacco type: cigarettes Second hand tobacco smoke exposure: No Smoking end date: 03/16/75 Alcohol intake: never Substance use: never Substance use type: does not use Do You Feel Safe in your Home?: Yes Lack of Transportation: No Lack of Food: Never True Current Housing: I Have Housing Concerned About Future Housing: No Difficulty Paying Gas/Electric Bills: No Difficulty Paying for Meds: No Currently Unemployed: No Education: High School Diploma/GED Difficulty w/ Childcare or Family Care: No Living arrangements: with family Occupation/Education: retired 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 Gender identity (if verbalized by the patient): Male Spiritual care concerns: No Meds Home Medications and Allergies Home Medications ?Medication ?Instructions ?Recorded ?Confirmed ?Type dutasteride 0.5 mg capsule 0.5 mg PO DAILY 04/26/19 04/14/24 History (Avodart) timolol maleate (PF) 0.5 % eye 1 drop ophthalmic (eye) DAILY 04/26/19 04/14/24 History drops in a dropperette (Timoptic Ocudose (PF)) docusate sodium 100 mg capsule 100 mg PO DAILY 09/22/22 04/14/24 History (Stool Softener) lisinopril 20 mg tablet 20 mg PO DAILY #90 tabs 09/30/23 04/14/24 Rx albuterol sulfate 90 mcg/actuation 1 puff inhalation Q4H PRN 04/06/24 04/14/24 History aerosol inhaler (Ventolin HFA) shortness of breath or wheezing albuterol sulfate 90 mcg/actuation 1 puff inhalation QID #6.7 grams 04/12/24 04/14/24 Rx aerosol inhaler amoxicillin 875 mg-potassium 1 tablet PO Q12H 7 days #14 tabs 04/12/24 04/14/24 Rx clavulanate 125 mg tablet azithromycin 250 mg tablet See Rx Instructions PO .COMPLEX #6 04/12/24 04/14/24 Rx tabs benzonatate 100 mg capsule 100 mg PO TID PRN cough #14 caps 04/12/24 04/14/24 Rx prednisone 50 mg tablet 50 mg PO DAILY 5 days #5 tabs 04/12/24 04/14/24 Rx Allergies Allergy/AdvReac Type Severity Reaction Status Date / Time No Known Allergies Allergy Verified 04/12/24 06:47 Vital Signs Vital Signs - 24 hr 04/13/24 13:17 04/13/24 20:46 04/13/24 20:46 Temperature 97.7 F Pulse Rate 93 96 Respiratory Rate 20 18 Blood Pressure 159/71 H 132/84 Pulse Oximetry 97 95 Oxygen Delivery Room Air Room Air 04/13/24 21:01 04/13/24 21:36 04/13/24 21:36 Temperature Pulse Rate 66 68 68 Respiratory Rate 18 18 18 Blood Pressure 108/65 108/65 Pulse Oximetry 97 97 Oxygen Delivery Exam Narrative: Sitting in by the side of the stretcher Const: General: comfortable, no acute distress, well developed, alert, awake and overweight Nutritional Appearance: overweight Orientation/consciousness: patient oriented x3 HENMT: Head: normal to inspection, normocephalic and atraumatic Ears: hearing grossly normal bilaterally Face/Nose/Sinus: normal facial exam Face and sinus: normal facial exam Eyes: General: appearance normal, both eyes and all related structures Pupils: Equal, round and reactive pupils present EOM: EOMs intact bilaterally Neck: Neck: full ROM, no lymphadenopathy and no JVD Thyroid: thyroid normal Lymphatic: no lymphadenopathy noted Resp: Effort & Inspection: normal respiratory effort and able to speak in complete sentences Auscultation: wheezes and diminished lung sounds Cardio: Jugular venous distension: no JVD Rate: regular rate Rhythm: regular rhythm Heart sounds: S1 normal heart sound present and S2 normal heart sound present GI: GI Palp: Yes Soft to palpation and Yes No hepatosplenomegaly present : General: Yes deferred Skin: Rashes: no rashes Wounds: no wounds Neuro: General: patient oriented x3 and CN's II-XI intact bilaterally Cranial nerves: Yes CN's II-XII intact bilaterally and Yes Equal, round and reactive pupils present Cognition (Neuro): normal cognition Speech: normal speech Gait exam (Neuro): Normal gait present Motor exam (neuro): 5/5 motor strength present throughout Extrem: General: normal to inspection, full ROM, no joint enlargement and no pedal edema H&P: Results Labs Labs: Short CBC 04/13/24 Range/Units 19:52 WBC 13.5 H (4.5-10.0) K/mm3 Hgb 15.9 (14.0-18.0) g/dL Hct 51.2 (42.0-52.0) % Plt Count 195 (150-375) k/mm3 BMP 04/13/24 19:52 Sodium 139 Potassium 3.8 Chloride 99 Carbon Dioxide 31 H BUN 19 Creatinine 0.85 Glucose 104 Calcium 9.5 Liver Function 04/13/24 Range/Units 19:52 Total Bilirubin 0.7 (0.2-1.3) mg/dL AST 28 (17-59) U/L ALT 28 (6-50) U/L Alkaline Phosphatase 82 (38-126) U/L Albumin 4.3 (3.5-5.1) g/dL Assessment and Plan Assessment and plan (1) Acute exacerbation of chronic obstructive pulmonary disease: Code(s): J44.1 - Chronic obstructive pulmonary disease with (acute) exacerbation Status: Acute Assessment and Plan: Placed in observation Scheduled breathing treatments Patient started on Rocephin and Zithromax Supportive care (2) Essential (primary) hypertension: Code(s): I10 - Essential (primary) hypertension Status: Acute Assessment and Plan: Resume home meds Hospitalist [facility] Advance Care Plan I have confirmed that the patient's Advanced Care Plan is present, code status is documented, or surrogate decision maker is listed in patient medical record.: Yes Medication Reconciliation I have utilized all available resources to obtain, update and review the patients current medications (includes all prescriptions, OTC, herbals, cannabis, and nutritional supplements).: Yes
[2024-04-13 23:20] VITALS: BP 138/61; PULSE 91; RESP 18; O2SAT 97
[2024-04-13 23:53] VITALS: BMI 30.1
--- NOTE | 2024-04-13 23:54 | ADMGEN ---
This patient, Rg Barker Jr., was admitted to 3 [facility] Surg Room 315-02. Patient/family oriented to hospital policies and general routines including ID bracelet, bed and alarms, visiting hours, pain management, procedures, bathroom and other care routines, personal items, smoking policy, room service/diet, and visiting hours. Information on how to activate the Rapid Response Team has been discussed. Patient/Family are encouraged to report perceived risks to care and to ask questions if they do not understand what they are told or what they should do.
[2024-04-14] VITALS (11 sets, daily range): BP systolic 126–149; BP diastolic 58–66; PULSE 67–83; RESP 16–20; TEMP 36.3–36.8; O2SAT 94–97
[2024-04-14] MEDS: IPRATROPIUM BR 0.02% INH SOLN 0.5 MG/2.5 ML VIAL INHALATION ×3 (02:40→19:32)
[2024-04-14] MEDS: ALBUTEROL SULFATE NEB 2.5 MG/3 ML INH INHALATION ×3 (02:40→19:32)
[2024-04-14] MEDS: methylPREDNISolone SOD SUCC 40 MG VIAL IV PUSH ×3 (04:31→17:03)
[2024-04-14] MEDS: DOCUSATE SODIUM 100 MG CAPSULE PO (09:38)
[2024-04-14] MEDS: lisinopriL 20 MG TABLET PO (09:38)
[2024-04-14] MEDS: DUTASTERIDE 0.5 MG CAPSULE PO (09:38)
[2024-04-14] MEDS: TIMOLOL MALEATE 0.5% OP SOLN 5 ML BOTTLE 1 DROP EACH EYE (09:39)
--- NOTE | 2024-04-14 15:13 | P.PNIM_ITS ---
Progress Note: A&P Assessment and Plan (1) Acute exacerbation of chronic obstructive pulmonary disease: Code(s): J44.1 - Chronic obstructive pulmonary disease with (acute) exacerbation Status: Acute Assessment and Plan: Placed in observation Scheduled breathing treatments Patient started on Rocephin and Zithromax Supportive care Reports flushing with episodes of shortness of breath but improves with inhalers Start Advair Changes solumedrol from 40 q6 to 40mg q12 Albuterol x1 for [employer] teaching (2) Essential (primary) hypertension: Code(s): I10 - Essential (primary) hypertension Status: Acute Assessment and Plan: Resume home meds Time Spent With Patient Time: 53 minutes Subjective Date/time seen: 04/14/24 15:13 Interval history: Shortness of breath when walking in the room. Reports sudden onset, became flushed and short of breath. Review of Systems Review of Systems: Shortness of breath, wheezing, chills, cough Exam Narrative: General - Awake and alert. No acute distress Eyes - PERRLA, EOM intact ENT - No thrush, No erythema Neck - No noticeable or palpable swelling Lymph Nodes - No lymphadenopathy Cardiovascular - RRR no m/r/g, no JVD Lungs: Decreased all lobes, no use of accessory muscles, no crackles or wheezes. Skin - Skin warm and dry, no wounds or rashes Abdomen - Normal bowel sounds, abdomen soft and nontender Extremities - No edema, cyanosis or clubbing Musculoskeletal - 5/5 strength, normal range of motion, no swollen or erythe matous joints. Neurological ? Alert and oriented x 3, CN 2-12 grossly intact. Psych: Normal mood and affect Objective Data Vital Signs Vital Signs: Vital Signs - 24 hr 04/13/24 20:46 04/13/24 20:46 04/13/24 21:01 Temperature Pulse Rate 96 66 Respiratory Rate 18 18 Blood Pressure 132/84 Pulse Oximetry 95 Oxygen Delivery Room Air 04/13/24 21:36 04/13/24 21:36 04/13/24 22:15 Temperature Pulse Rate 68 68 69 Respiratory Rate 18 18 18 Blood Pressure 108/65 108/65 Pulse Oximetry 97 97 Oxygen Delivery 04/13/24 23:20 04/14/24 02:40 04/14/24 02:40 Temperature Pulse Rate 91 76 Respiratory Rate 18 18 Blood Pressure 138/61 Pulse Oximetry 97 95 Oxygen Delivery Room Air 04/14/24 02:48 04/14/24 06:00 04/14/24 08:17 Temperature 98.1 F Pulse Rate 71 83 76 Respiratory Rate 18 18 20 Blood Pressure 126/66 Pulse Oximetry 97 94 Oxygen Delivery Room Air 04/14/24 08:17 04/14/24 08:28 04/14/24 09:45 Temperature Pulse Rate 76 79 Respiratory Rate 20 20 Blood Pressure Pulse Oximetry 94 Oxygen Delivery Room Air Intake/Output Intake/Output: Intake & Output 04/11/24 04/12/24 04/13/24 04/14/24 23:59 23:59 23:59 23:59 Intake Total 400 1520 Balance 400 1520 Meds/Results Medications: Active Medications Generic Name Dose Route Start Last Admin Trade Name Freq PRN Reason Stop Dose Admin Albuterol 2.5 mg 04/14/24 02:00 04/14/24 08:16 Albuterol Sulfate Neb 2.5 Mg/3 Ml Inh INHALATION 2.5 mg Q6HRT RUIZ Administration Albuterol 1 puff 04/14/24 01:31 Albuterol Sulfate (*Sp) Aerosol 1 Puff INHALATION Q4HRT PRN shortness of breath or wheezing Benzonatate 100 mg 04/14/24 01:31 Benzonatate 100 Mg Capsule PO TID PRN cough Docusate Sodium 100 mg 04/14/24 09:00 04/14/24 09:38 Docusate Sodium 100 Mg Capsule PO 100 mg DAILY RUIZ Administration Dutasteride 0.5 mg 04/14/24 09:00 04/14/24 09:38 Dutasteride 0.5 Mg Capsule PO 0.5 mg DAILY RUIZ Administration Ipratropium [place] 0.5 mg 04/14/24 02:00 04/14/24 08:17 Ipratropium Br 0.02% Inh Soln 0.5 Mg/2.5 Ml Vial INHALATION 0.5 mg Q6HRT RUIZ Administration Lisinopril 20 mg 04/14/24 09:00 04/14/24 09:38 Lisinopril 20 Mg Tablet PO 20 mg DAILY RUIZ Administration Methylprednisolone Sodium Succinate 40 mg 04/14/24 04:00 04/14/24 09:43 Methylprednisolone Sod Succ 40 Mg Vial IV PUSH 40 mg Q6H RUIZ Administration Timolol Maleate 1 drop 04/14/24 09:00 04/14/24 09:39 Timolol Maleate 0.5% Op Soln 5 Ml Bottle EACH EYE 1 drop DAILY RUIZ Administration Radiology Results: ITS Impressions Chest X-Ray 04/13/24 17:33 IMPRESSION: No focal infiltrate or effusion. Labs Labs: Laboratory Results - last 24 hr 04/13/24 19:52 WBC 13.5 H RBC 5.69 Hgb 15.9 Hct 51.2 MCV 90.0 MCH 27.9 MCHC 31.1 L RDW 14.1 Plt Count 195 MPV 10.3 Immature Gran % (Auto) 0.4 Neut % (Auto) 63.1 Lymph % (Auto) 19.7 [place] % (Auto) 10.7 H Eos % (Auto) 5.5 H Baso % (Auto) 0.6 Lymph # (Auto) 2.66 [place] # (Auto) 1.4 H Eos # (Auto) 0.8 H Baso # (Auto) 0.1 Abs Immat Gran (auto) 0.05 H Absolute Neuts (auto) 8.5 H Absolute Nucleated RBC 0.000 Nucleated RBC % 0.0 Sodium 139 Potassium 3.8 Chloride 99 Carbon Dioxide 31 H Anion Gap 9 BUN 19 Creatinine 0.85 Estim Creat Clear Calc 80 Estimated GFR > 60 Glucose 104 Calcium 9.5 Total Bilirubin 0.7 AST 28 ALT 28 Alkaline Phosphatase 82 NT-Pro-B Natriuret Pep 64 Total Protein 7.0 Albumin 4.3 Influenza A (RT-PCR) Negative Influenza B (RT-PCR) Negative RSV (RT-PCR) Negative SARS-CoV-2 RNA (RT-PCR) Negative Hospitalist [facility] Advance Care Plan I have confirmed that the patient's Advanced Care Plan is present, code status is documented, or surrogate decision maker is listed in patient medical record.: Yes Medication Reconciliation I have utilized all available resources to obtain, update and review the patients current medications (includes all prescriptions, OTC, herbals, cannabis, and nutritional supplements).: Yes
[2024-04-14] MEDS: ENOXAPARIN 40 MG/0.4 ML SYRINGE SUB-Q (18:01)
[2024-04-14] MEDS: FLUTICASONE/SALMETEROL 115-21 MCG INHALER 1 PUFF 2 PUFF INHALATION (19:44)
[2024-04-15] VITALS (12 sets, daily range): BP systolic 131–150; BP diastolic 58–72; PULSE 62–77; RESP 14–20; TEMP 36.3–36.6; O2SAT 94–98
[2024-04-15] MEDS: ALBUTEROL SULFATE NEB 2.5 MG/3 ML INH INHALATION ×4 (01:44→20:51)
[2024-04-15] MEDS: IPRATROPIUM BR 0.02% INH SOLN 0.5 MG/2.5 ML VIAL INHALATION ×4 (01:44→20:52)
[2024-04-15] MEDS: methylPREDNISolone SOD SUCC 40 MG VIAL IV PUSH ×2 (05:30→17:25)
[2024-04-15] MEDS: FLUTICASONE/SALMETEROL 115-21 MCG INHALER 1 PUFF 2 PUFF INHALATION ×2 (07:46→20:53)
[2024-04-15] MEDS: DUTASTERIDE 0.5 MG CAPSULE PO (09:09)
[2024-04-15] MEDS: lisinopriL 20 MG TABLET PO (09:09)
[2024-04-15] MEDS: DOCUSATE SODIUM 100 MG CAPSULE PO (09:09)
[2024-04-15] MEDS: ENOXAPARIN 40 MG/0.4 ML SYRINGE SUB-Q (09:09)
[2024-04-15] MEDS: TIMOLOL MALEATE 0.5% OP SOLN 5 ML BOTTLE 1 DROP EACH EYE (09:10)
--- NOTE | 2024-04-15 17:46 | PM.IMPN ---
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 Wasn negative for Flu/COVID/RSV. --Check BMP, Mag --Check stool for Cdiff, norovirus, rotavirus Time Spent With Patient Time: 59 minutes Subjective Date/time seen: 04/15/24 17:46 Interval history: Shortness of breath when walking in the room improving. Having frequent diarrhea, watery stools. No abdominal pain Review of Systems Review of Systems: Shortness of breath, wheezing, chills, cough Exam Narrative: General - Awake and alert. No acute distress Eyes - PERRLA, EOM intact ENT - No thrush, No erythema Neck - No noticeable or palpable swelling Lymph Nodes - No lymphadenopathy Cardiovascular - RRR no m/r/g, no JVD Lungs: Decreased all lobes, no use of accessory muscles, no crackles or wheezes. Skin - Skin warm and dry, no wounds or rashes Abdomen - Normal bowel sounds, abdomen soft and nontender Extremities - No edema, cyanosis or clubbing Musculoskeletal - 5/5 strength, normal range of motion, no swollen or erythematous joints. Neurological ? Alert and oriented x 3, CN 2-12 grossly intact. Psych: Normal mood and affect Objective Data Vital Signs Vital Signs: Vital Signs - 24 hr 04/14/24 19:35 04/14/24 19:39 04/14/24 19:46 Temperature Pulse Rate 74 67 Respiratory Rate 20 20 Blood Pressure Pulse Oximetry 94 Oxygen Delivery Room Air 04/14/24 20:00 04/14/24 21:16 04/15/24 01:45 Temperature 97.4 F L Pulse Rate 67 62 Respiratory Rate 16 20 Blood Pressure 128/58 L Pulse Oximetry 97 Oxygen Delivery Room Air 04/15/24 01:57 04/15/24 05:14 04/15/24 07:50 Temperature 97.7 F Pulse Rate 66 77 Respiratory Rate 20 16 Blood Pressure 150/72 H Pulse Oximetry 97 98 Oxygen Delivery Room Air 04/15/24 07:50 04/15/24 08:05 04/15/24 09:15 Temperature Pulse Rate 70 63 Respiratory Rate 16 16 Blood Pressure Pulse Oximetry 98 Oxygen Delivery Room Air 04/15/24 14:00 04/15/24 14:17 04/15/24 14:33 Temperature 98 F Pulse Rate 64 72 76 Respiratory Rate 15 14 14 Blood Pressure 131/62 Pulse Oximetry 98 Oxygen Delivery Intake/Output Intake/Output: Intake & Output 04/12/24 04/13/24 04/14/24 04/15/24 23:59 23:59 23:59 23:59 Intake Total 400 2800 1030 Balance 400 2800 1030 Meds/Results Medications: Active Medications Generic Name Dose Route Start Last Admin Trade Name Freq PRN Reason Stop Dose Admin Albuterol 2.5 mg 04/14/24 02:00 04/15/24 14:16 Albuterol Sulfate Neb 2.5 Mg/3 Ml Inh INHALATION 2.5 mg Q6HRT RUIZ Administration Albuterol 1 puff 04/14/24 01:31 Albuterol Sulfate (*Sp) Aerosol 1 Puff INHALATION Q4HRT PRN shortness of breath or wheezing Benzonatate 100 mg 04/14/24 01:31 Benzonatate 100 Mg Capsule PO TID PRN cough Docusate Sodium 100 mg 04/14/24 09:00 04/15/24 09:09 Docusate Sodium 100 Mg Capsule PO 100 mg DAILY RUIZ Administration Dutasteride 0.5 mg 04/14/24 09:00 04/15/24 09:09 Dutasteride 0.5 Mg Capsule PO 0.5 mg DAILY RUIZ Administration Enoxaparin Sodium 40 mg 04/14/24 17:40 04/15/24 09:09 Enoxaparin 40 Mg/0.4 Ml Syringe SUB-Q 40 mg DAILY RUIZ Administration Ipratropium [place] 0.5 mg 04/14/24 02:00 04/15/24 14:17 Ipratropium Br 0.02% Inh Soln 0.5 Mg/2.5 Ml Vial INHALATION 0.5 mg Q6HRT RUIZ Administration Lisinopril 20 mg 04/14/24 09:00 04/15/24 09:09 Lisinopril 20 Mg Tablet PO 20 mg DAILY RUIZ Administration Methylprednisolone Sodium Succinate 40 mg 04/15/24 06:00 04/15/24 17:25 Methylprednisolone Sod Succ 40 Mg Vial IV PUSH 40 mg Q12H RUIZ Administration Fluticasone/Salmeterol 2 puff 04/14/24 20:00 04/15/24 07:46 Fluticasone/Salmeterol 115-21 Mcg Inhaler 1 Puff INHALATION 2 puff Q12HRT RUIZ Administration Timolol Maleate 1 drop 04/14/24 09:00 04/15/24 09:10 Timolol Maleate 0.5% Op Soln 5 Ml Bottle EACH EYE 1 drop DAILY RUIZ Administration Radiology Results: ITS Impressions Chest X-Ray 04/13/24 17:33 IMPRESSION: No focal infiltrate or effusion. Hospitalist [facility] Advance Care Plan I have confirmed that the patient's Advanced Care Plan is present, code status is documented, or surrogate decision maker is listed in patient medical record.: Yes Medication Reconciliation I have utilized all available resources to obtain, update and review the patients current medications (includes all prescriptions, OTC, herbals, cannabis, and nutritional supplements).: Yes
[2024-04-15] MEDS: predniSONE 20 MG TABLET 40 MG PO (18:09)
[2024-04-15 18:29] LABS: Anion Gap 10 mmol/L (4-12); Blood Urea Nitrogen 20 mg/dL (9-20); Carbon Dioxide 28 mmol/L (22-30); Chloride 99 mmol/L (98-107); Estimated CRCL calculation 81 ml/min; Estimated Glomerular Filt Rate > 60; Glucose 158 mg/dL (65-110); Magnesium 2.2 mg/dL (1.6-2.3); Potassium 4.4 mmol/L (3.4-5.0); Sodium 137 mmol/L (137-145)
[2024-04-16] VITALS (11 sets, daily range): BP systolic 114–161; BP diastolic 60–65; PULSE 61–81; RESP 16–18; TEMP 36.2–36.8; O2SAT 96–98
[2024-04-16] MEDS: IPRATROPIUM BR 0.02% INH SOLN 0.5 MG/2.5 ML VIAL INHALATION ×4 (03:30→20:52)
[2024-04-16] MEDS: ALBUTEROL SULFATE NEB 2.5 MG/3 ML INH INHALATION ×4 (03:34→20:52)
[2024-04-16] MEDS: FLUTICASONE/SALMETEROL 115-21 MCG INHALER 1 PUFF 2 PUFF INHALATION ×2 (07:27→21:50)
[2024-04-16 08:51] LABS: Basophils Percent Auto 0.1 % (0.2-1.2); Eosinophils Percent Auto 0.1 % (0-4.4); Hematocrit 49.6 % (42.0-52.0); Hemoglobin 15.6 g/dL (14.0-18.0); Immature Granulocyte Absolute 0.06 K/mm3 (0.00-0.031); Immature Granulocyte Percent A 0.4 % (0-0.5); Lymphocytes Absolute Auto 1.63 K/mm3 (0.9-3.2); Lymphocytes Percent Auto 10.9 % (18.3-44.2); Mean Corpuscular HGB Conc 31.5 g/dl (32-36); Mean Corpuscular Hemoglobin 28.4 pg (26-34); Mean Corpuscular Volume 90.2 fl (80-100); Mean Platelet Volume 10.7 fl (7.4-10.4); Monocytes Absolute Auto 1.3 K/mm3 (0.1-0.6); Monocytes Percent Auto 8.7 % (2.6-8.5); Neutrophils Percent Auto 79.8 % (45.5-73.1); Platelet Count Result 199 k/mm3 (150-375); Red Cell Distribution Width 13.6 % (11.5-14.5)
[2024-04-16] MEDS: DUTASTERIDE 0.5 MG CAPSULE PO (08:53)
[2024-04-16] MEDS: AZITHROMYCIN 250 MG TABLET 500 MG PO (08:53)
[2024-04-16] MEDS: lisinopriL 20 MG TABLET PO (08:53)
[2024-04-16] MEDS: DOCUSATE SODIUM 100 MG CAPSULE PO (08:53)
[2024-04-16] MEDS: predniSONE 20 MG TABLET 40 MG PO (08:53)
[2024-04-16] MEDS: ENOXAPARIN 40 MG/0.4 ML SYRINGE SUB-Q (08:54)
[2024-04-16] MEDS: TIMOLOL MALEATE 0.5% OP SOLN 5 ML BOTTLE 1 DROP EACH EYE (09:00)
[2024-04-16 09:09] LABS: Alanine Aminotransferase 28 U/L (6-50); Albumin Level 3.8 g/dL (3.5-5.1); Alkaline Phosphatase 66 U/L (38-126); Anion Gap 10 mmol/L (4-12); Aspartate Amino Transferase 24 U/L (17-59); Bilirubin,Total 0.8 mg/dL (0.2-1.3); Blood Urea Nitrogen 18 mg/dL (9-20); Carbon Dioxide 27 mmol/L (22-30); Chloride 101 mmol/L (98-107); Estimated CRCL calculation 91 ml/min; Estimated Glomerular Filt Rate > 60; Glucose 103 mg/dL (65-110); Potassium 4.5 mmol/L (3.4-5.0); Sodium 138 mmol/L (137-145)
[2024-04-16 12:42] LABS: Toxigenic C. Diff NEGATIVE (NEGATIVE)
--- NOTE | 2024-04-16 17:22 | P.PNIM_ITS ---
Progress Note: A&P Assessment and Plan (1) Acute exacerbation of chronic obstructive pulmonary disease: Code(s): J44.1 - Chronic obstructive pulmonary disease with (acute) exacerbation Status: Acute Assessment and Plan: * chest x-ray was negative * patient started on Rocephin and azithromycin initially, Rocephin discontinued considering no signs of infection. * Patient reports allergy to dust * Will start singular at hs * Will need nebulizer and duonebs for home use. * Continue DuoNebs * continue Tessalon Perles * continue prednisone * if continuing to do well, will likely discharge in the morning (2) Essential (primary) hypertension: Code(s): I10 - Essential (primary) hypertension Status: Acute Assessment and Plan: * blood pressure ranging 114/65 to 161/60 * continue lisinopril (3) Diarrhea: Code(s): R19.7 - Diarrhea, unspecified Status: Acute Assessment and Plan: reported Multiple frequent watery stools. * respiratory panel negative * C diff negative * patient noted normal bowel movement today which was sent for norovirus and rotavirus, currently pending * continue to monitor electrolytes Time Spent With Patient Time with patient: Greater than 35 minutes Subjective Date/time seen: 04/16/24 17:22 Interval history: Interval history: This is a 78-year-old male who presented to the hospital on 04/13/2024 with increased shortness of breath/wheezing and diarrhea. Workup in the hospital included chest x-ray on 04/12/2024 which showed a normal chest. He had another chest x-ray on 04/13/2024 which was negative for any acute infiltrate or effusion. Initial labs shown a white blood cell count of 13.5, otherwise unremarkable. Respiratory panel was negative for influenza a and B, RSV, COVID. C diff was negative. rotavirus and norovirus cultures pending. EKG showed sinus rhythm with a rate of 67, QTC 405. Patient was given Tessalon Perles, and DuoNeb breathing treatments. Subjective: Patient denies any fever, chills, nausea, vomiting, diarrhea, abdominal pain, chest pain. He endorses shortness of breath with exertion. He states he is feeling much better from when he 1st came in, however he is nervous about going home today. We will re-evaluate in the morning. Labs and imaging reviewed. Review of Systems Review of Systems: Shortness of breath, wheezing, chills, cough All systems reviewed & are unremarkable except as noted in HPI and below Exam Narrative: General: In no acute distress, well nourished Head: atraumatic, no encephalopathy Eyes: PERRLA, sclera clear ENT: moist mucous membranes, nasal passages clear Neck: supple, no JVD, no adenopathy, trachea midline Cardiac: Normal S1 and S2. No murmur, gallops or friction rubs, peripheral pulses intact. Respiratory: Lungs clear to auscultation, no adventitious lung sounds, currently on room air Gastrointestinal: soft, non-distended, abdominal tenderness over left upper and right upper quadrant, normoactive bowel sounds. patient had formed bowel movement today : voiding without difficulty. Extremities: moves all extremities well, no edema, Skin: clean, dry, intact. No wounds or lesions. Neuro: Alert and oriented x4, cranial nerves intact, no neuro deficits. Psych: normal mood, normal affect, interactive Objective Data Vital Signs Vital Signs: Vital Signs - 24 hr 04/15/24 20:41 04/15/24 20:54 04/15/24 21:05 Temperature Pulse Rate 70 72 Respiratory Rate 15 15 Blood Pressure Pulse Oximetry Oxygen Delivery Room Air 04/15/24 21:46 04/16/24 03:34 04/16/24 03:46 Temperature 97.4 F L Pulse Rate 66 64 61 Respiratory Rate 16 16 16 Blood Pressure 138/58 L Pulse Oximetry 94 Oxygen Delivery 04/16/24 06:00 04/16/24 07:29 04/16/24 07:29 Temperature 97.5 F L Pulse Rate 70 74 Respiratory Rate 18 16 Blood Pressure 114/65 Pulse Oximetry 98 96 Oxygen Delivery Room Air 04/16/24 07:41 04/16/24 08:53 04/16/24 13:14 Temperature Pulse Rate 64 76 Respiratory Rate 16 16 Blood Pressure Pulse Oximetry Oxygen Delivery Room Air 04/16/24 13:26 04/16/24 14:00 Temperature 97.2 F L Pulse Rate 81 78 Respiratory Rate 16 18 Blood Pressure 161/60 H Pulse Oximetry 98 Oxygen Delivery Intake/Output Intake/Output: Intake & Output 04/13/24 04/14/24 04/15/24 04/16/24 23:59 23:59 23:59 23:59 Intake Total 400 2800 1030 1270 Balance 400 2800 1030 1270 Meds/Results Medications: Active Medications Generic Name Dose Route Start Last Admin Trade Name Freq PRN Reason Stop Dose Admin Albuterol 2.5 mg 04/14/24 02:00 04/16/24 13:14 Albuterol Sulfate Neb 2.5 Mg/3 Ml Inh INHALATION 2.5 mg Q6HRT RUIZ Administration Albuterol 1 puff 04/14/24 01:31 Albuterol Sulfate (*Sp) Aerosol 1 Puff INHALATION Q4HRT PRN shortness of breath or wheezing Azithromycin 500 mg 04/16/24 09:00 04/16/24 08:53 Azithromycin 250 Mg Tablet PO 500 mg DAILY [facility] Administration Benzonatate 100 mg 04/14/24 01:31 Benzonatate 100 Mg Capsule PO TID PRN cough Docusate Sodium 100 mg 04/14/24 09:00 04/16/24 08:53 Docusate Sodium 100 Mg Capsule PO 100 mg DAILY RUIZ Administration Dutasteride 0.5 mg 04/14/24 09:00 04/16/24 08:53 Dutasteride 0.5 Mg Capsule PO 0.5 mg DAILY [facility] Administration Enoxaparin Sodium 40 mg 04/14/24 17:40 04/16/24 08:54 Enoxaparin 40 Mg/0.4 Ml Syringe SUB-Q 40 mg DAILY [facility] Administration Ipratropium [place] 0.5 mg 04/14/24 02:00 04/16/24 13:14 Ipratropium Br 0.02% Inh Soln 0.5 Mg/2.5 Ml Vial INHALATION 0.5 mg Q6HRT RUIZ Administration Lisinopril 20 mg 04/14/24 09:00 04/16/24 08:53 Lisinopril 20 Mg Tablet PO 20 mg DAILY [facility] Administration Prednisone 40 mg 04/15/24 17:55 04/16/24 08:53 Prednisone 20 Mg Tablet PO 40 mg DAILY@0800 [facility] Administration Fluticasone/Salmeterol 2 puff 04/14/24 20:00 04/16/24 07:27 Fluticasone/Salmeterol 115-21 Mcg Inhaler 1 Puff INHALATION 2 puff Q12HRT [facility] Administration Timolol Maleate 1 drop 04/14/24 09:00 04/16/24 09:00 Timolol Maleate 0.5% Op Soln 5 Ml Bottle EACH EYE 1 drop DAILY RUIZ Administration Radiology Results: ITS Impressions Chest X-Ray 04/13/24 17:33 IMPRESSION: No focal infiltrate or effusion. Labs Labs: Laboratory Results - last 24 hr 04/15/24 04/16/24 04/16/24 18:11 08:36 11:46 WBC 15.0 H RBC 5.50 Hgb 15.6 Hct 49.6 MCV 90.2 MCH 28.4 MCHC 31.5 L RDW 13.6 Plt Count 199 MPV 10.7 H Immature Gran % (Auto) 0.4 Neut % (Auto) 79.8 H Lymph % (Auto) 10.9 L [place] % (Auto) 8.7 H Eos % (Auto) 0.1 Baso % (Auto) 0.1 L Lymph # (Auto) 1.63 [place] # (Auto) 1.3 H Eos # (Auto) 0.0 Baso # (Auto) 0.0 Abs Immat Gran (auto) 0.06 H Absolute Neuts (auto) 12.0 H Absolute Nucleated RBC 0.000 Nucleated RBC % 0.0 Sodium 137 138 Potassium 4.4 4.5 Chloride 99 101 Carbon Dioxide 28 27 Anion Gap 10 10 BUN 20 18 Creatinine 0.78 0.69 L Estim Creat Clear Calc 81 91 Estimated GFR > 60 > 60 Glucose 158 H 103 Calcium 9.0 9.0 Magnesium 2.2 Total Bilirubin 0.8 AST 24 ALT 28 Alkaline Phosphatase 66 Total Protein 7.0 Albumin 3.8 C. difficile (PCR) Negative Quality VTE Prophylaxis VTE prophylaxis: pharmacologic ordered
[2024-04-16] MEDS: MONTELUKAST SODIUM 10 MG TABLET PO (20:34)
[2024-04-17] VITALS (7 sets, daily range): BP systolic 114; BP diastolic 58; PULSE 60–76; RESP 15–18; TEMP 36.3; O2SAT 96–97
[2024-04-17] MEDS: ALBUTEROL SULFATE NEB 2.5 MG/3 ML INH INHALATION ×3 (03:40→13:25)
[2024-04-17] MEDS: IPRATROPIUM BR 0.02% INH SOLN 0.5 MG/2.5 ML VIAL INHALATION ×3 (03:41→13:25)
[2024-04-17 08:05] LABS: Basophils Percent Auto 0.2 % (0.2-1.2); Eosinophils Absolute Auto 0.2 K/mm3 (0-0.3); Eosinophils Percent Auto 1.6 % (0-4.4); Hematocrit 49.1 % (42.0-52.0); Immature Granulocyte Absolute 0.05 K/mm3 (0.00-0.031); Immature Granulocyte Percent A 0.5 % (0-0.5); Lymphocytes Absolute Auto 2.81 K/mm3 (0.9-3.2); Mean Corpuscular HGB Conc 30.5 g/dl (32-36); Mean Corpuscular Hemoglobin 27.7 pg (26-34); Mean Corpuscular Volume 90.8 fl (80-100); Mean Platelet Volume 10.4 fl (7.4-10.4); Monocytes Absolute Auto 1.1 K/mm3 (0.1-0.6); Monocytes Percent Auto 10.5 % (2.6-8.5); Neutrophils Absolute Auto 6.3 K/mm3 (1.3-6.7); Neutrophils Percent Auto 60.2 % (45.5-73.1); Platelet Count Result 174 k/mm3 (150-375); Red Blood Count 5.41 M/mm3 (4.6-6.20); Red Cell Distribution Width 13.7 % (11.5-14.5); White Blood Count 10.4 K/mm3 (4.5-10.0)
[2024-04-17 08:21] LABS: Alanine Aminotransferase 30 U/L (6-50); Albumin Level 3.6 g/dL (3.5-5.1); Alkaline Phosphatase 63 U/L (38-126); Anion Gap 3 mmol/L (4-12); Aspartate Amino Transferase 19 U/L (17-59); Bilirubin,Total 0.9 mg/dL (0.2-1.3); Blood Urea Nitrogen 19 mg/dL (9-20); Carbon Dioxide 35 mmol/L (22-30); Chloride 100 mmol/L (98-107); Estimated CRCL calculation 70 ml/min; Estimated Glomerular Filt Rate > 60; Glucose 86 mg/dL (65-110); Potassium 3.8 mmol/L (3.4-5.0); Sodium 138 mmol/L (137-145)
[2024-04-17] MEDS: FLUTICASONE/SALMETEROL 115-21 MCG INHALER 1 PUFF 2 PUFF INHALATION (08:26)
--- NOTE | 2024-04-17 08:32 | P.DS_ITS ---
DS: Admitting Diagnosis Discharge Date 04/17/24 Admitting Diagnosis Acute exacerbation of COPD hypertension DS: Discharge Diagnosis Discharge Diagnosis (1) Acute exacerbation of chronic obstructive pulmonary disease: Code(s): J44.1 - Chronic obstructive pulmonary disease with (acute) exacerbation Status: Acute (2) Essential (primary) hypertension: Code(s): I10 - Essential (primary) hypertension Status: Acute (3) Diarrhea: Code(s): R19.7 - Diarrhea, unspecified Status: Acute DS: Summary Hospital Course Reason for hospitalization: Acute exacerbation of COPD hypertension Hospital Course: This is a 78-year-old male who presented to the hospital on 04/13/2024 with increased shortness of breath/wheezing and diarrhea. Workup in the hospital included chest x-ray on 04/12/2024 which showed a normal chest. He had another chest x-ray on 04/13/2024 which was negative for any acute infiltrate or effusion. Initial labs shown a white blood cell count of 13.5, otherwise unremarkable. Respiratory panel was negative for influenza a and B, RSV, COVID. C diff was negative. rotavirus and norovirus cultures pending. EKG showed sinus rhythm with a rate of 67, QTC 405. Patient was given Tessalon Perles, and DuoNeb breathing treatments. Patient states he is feeling much better today and is eager to go home. Labs essentially unremarkable. VSS, he is afebrile, currently on room air. Patient is stable for discharge at this time. He has a new patient appointment with Dr. Nash,, pulmonology in the next few weeks. He was prescribed an Advair inhaler, nebulizer, prednisone taper, azithromycin, and duo-neb breathing treatments as needed for home use. Final diagnosis: Acute exacerbation of COPD Status at Discharge Cognitive/behavioral status at discharge: Alert and oriented x4 Functional status at discharge: independent ambulation Overall status at discharge: patient is progressing back to baseline Time Spent with Patient Time attestation: Total time spent providing and/or coordinating discharge services: Time spent: Greater than 30 minutes Exam Narrative: General: In no acute distress, well nourished Cardiac: Normal S1 and S2. No murmur, gallops or friction rubs, peripheral pulses intact. Respiratory: Lungs clear to auscultation, no adventitious lung sounds, currently on room air Gastrointestinal: soft, non-distended, non tender : voiding without difficulty. Neuro: Alert and oriented x4 DS: Data Data Completed and Pending Completed studies during hospitalization: Chest x-ray Pending studies at discharge: None Labs on day of discharge: Labs from last 24 hours 04/17/24 04/16/24 04/16/24 07:50 11:46 08:36 WBC 10.4 H 15.0 H RBC 5.41 5.50 Hgb 15.0 15.6 Hct 49.1 49.6 MCV 90.8 90.2 MCH 27.7 28.4 MCHC 30.5 L 31.5 L RDW 13.7 13.6 Plt Count 174 199 MPV 10.4 10.7 H Immature Gran % (Auto) 0.5 0.4 Neut % (Auto) 60.2 79.8 H Lymph % (Auto) 27.0 10.9 L [place] % (Auto) 10.5 H 8.7 H Eos % (Auto) 1.6 0.1 Baso % (Auto) 0.2 0.1 L Lymph # (Auto) 2.81 1.63 [place] # (Auto) 1.1 H 1.3 H Eos # (Auto) 0.2 0.0 Baso # (Auto) 0.0 0.0 Abs Immat Gran (auto) 0.05 H 0.06 H Absolute Neuts (auto) 6.3 12.0 H Absolute Nucleated RBC 0.000 0.000 Nucleated RBC % 0.0 0.0 Sodium 138 138 Potassium 3.8 4.5 Chloride 100 101 Carbon Dioxide 35 H 27 Anion Gap 3 L 10 BUN 19 18 Creatinine 0.91 0.69 L Estim Creat Clear Calc 70 91 Estimated GFR > 60 > 60 Glucose 86 103 Calcium 9.0 9.0 Total Bilirubin 0.9 0.8 AST 19 24 ALT 30 28 Alkaline Phosphatase 63 66 Total Protein 6.0 L 7.0 Albumin 3.6 3.8 Stool Rotavirus Antigen Pending Stool Norovirus (PCR) Pending C. difficile (PCR) Negative Procedures/Treatments: NOne Discharge Plan Discharge Attending physician on discharge: Christian Olivo Discharging Clinician: Laisha Prajapati Anticipated Discharge Date/Time: 04/17/24 08:23 Patient Disposition: Home, Self-Care Activity: as tolerated Diet: as tolerated and regular Discharge Instructions: * finish all of your antibiotic as directed even if you are feeling better * Finish prednisone taper * You have been ordered a nebulizer machine with Duo-nebs like you were receiving here. If your inhaler does not work after 2 x of use, do a breathing treatment with your nebulizer. If still no relief, no one more. If you are still having issues then present to the hospital for further evaluation. * Continue taking Singulair every night as this will help with your allergies and help keep you from exacerbation of your COPD. * follow up with your primary care doctor in 1 week. Patient Instructions: Antibiotic Form, Prednisone (By mouth), Azithromycin (By mouth), COPD (Chronic Obstructive Pulmonary Disease) (DC), How to Use a Nebulize r (DC) Patient Language: K[place]z Stand Alone Forms: General Discharge Information Follow-up/Referrals: Sheron Nash MD [Physician] - Keep Reg. Scheduled Appt. Cisco Dumont DO [Primary Care Provider] - 1 Week Discharge Medications: New (DME) nebulizer and compressor Device See Rx Instructions .Route Qty: 1 0RF Rx Instructions: As directed (DME) nebulizer accessories Kit See Rx Instructions .Route Qty: 1 0RF Rx Instructions: As directed benzonatate 100 mg Capsule 100 mg PO TID PRN (Reason: cough) Qty: 30 0RF azithromycin [Zithromax] 250 mg Tablet 500 mg PO DAILY Qty: 8 0RF montelukast [Singulair] 10 mg Tablet 10 mg PO HS Qty: 30 0RF ipratropium bromide 0.02 % Solution 0.5 mg inhalation Q6HRT PRN (Reason: shortness of breath/wheezing) Qty: 30 0RF fluticasone propion-salmeterol [Advair HFA] 115-21 mcg/actuation Hfa Aerosol Inhaler 2 puff inhalation Q12HRT Qty: 1 0RF prednisone 10 mg tablet 10 mg PO DAILY Qty: 30 0RF Rx Instructions: Take 40 mg (4 tabs) for the next 3 days starting tomorrow, Then decrease to 30 mg (3 tabs) for the next 3 days, Then decrease to 20 mg (2 tabs) for the next 3 days, Then decrease to 10 mg ( 1 tab) for the next 3 days, Then discontinue use. Continued dutasteride [Avodart] 0.5 mg capsule 0.5 mg PO DAILY Timoptic Ocudose (PF) 0.5 % dropperette 1 drop EACH EYE DAILY docusate sodium [Stool Softener] 100 mg capsule 100 mg PO DAILY benzonatate 100 mg capsule 100 mg PO TID PRN (Reason: cough) Qty: 14 0RF albuterol sulfate 90 mcg/actuation HFA aerosol inhaler 1 puff inhalation QID Qty: 6.7 0RF prednisone 50 mg tablet 50 mg PO DAILY 5 Days Qty: 5 0RF lisinopril 20 mg tablet 20 mg PO DAILY Qty: 90 3RF Discontinued albuterol sulfate [Ventolin HFA] 90 mcg/actuation HFA aerosol inhaler 1 puff inhalation Q4H PRN (Reason: shortness of breath or wheezing) azithromycin 250 mg tablet See Rx Instructions .ROUTE .COMPLEX Qty: 6 0RF Rx Instructions: For 250 mg dose pack: take 500 mg today (day 1), then 250 mg for 4 days (days 2-5) amoxicillin-pot clavulanate 875-125 mg tablet 1 tablet PO Q12H 7 Days Qty: 14 0RF Date of admission: 04/14/24 07:28 Primary Care Provider: Cisco Dumont Admitting Provider: Jon Hutson V. Attending physician on admission: Laisha Prajapati Condition: Improved Quality VTE Prophylaxis VTE prophylaxis: pharmacologic ordered Hospitalist MIPS Heart Failure (Exclusion) Patient has history of Heart Transplant or Left Ventricular Assistive Device?: No IF YES, STOP HERE Heart Failure (Qualifier) Patient has current or prior documentation of LVEF less than or equal to 40%, or mod/servere depressed LVSF?: No IF NO, STOP HERE
[2024-04-17] MEDS: DUTASTERIDE 0.5 MG CAPSULE PO (09:28)
[2024-04-17] MEDS: AZITHROMYCIN 250 MG TABLET 500 MG PO (09:28)
[2024-04-17] MEDS: DOCUSATE SODIUM 100 MG CAPSULE PO (09:28)
[2024-04-17] MEDS: predniSONE 20 MG TABLET 40 MG PO (09:28)
[2024-04-17] MEDS: lisinopriL 20 MG TABLET PO (09:28)
[2024-04-17] MEDS: TIMOLOL MALEATE 0.5% OP SOLN 5 ML BOTTLE 1 DROP EACH EYE (10:24)
[2024-04-17] MEDS: ENOXAPARIN 40 MG/0.4 ML SYRINGE SUB-Q (10:31)
[2024-04-20 15:57] LABS: Norovirus RNA PCR, Stool NOT DETECTED
== END 2024-04-17 15:14 | disposition home or self-care (01) | DRG 192 ==
LOC: ANHED 22:37 → ANH3MEDSUR 23:52
PROVIDERS: Emergency Medicine; Nurse Practitioner Acute Care; Physician Assistant; Admitting Provider Internal Medicine; Emergency Provider Student in an Organized Health Care Education/Training Program; PCP Internal Medicine; Visit Provider Nurse Practitioner Acute Care
DX: J44.1 Chronic obstructive pulmonary disease with (acute) exacerbation (principal); I10 Essential (primary) hypertension; R19.7 Diarrhea, unspecified; Z20.822 Contact with and (suspected) exposure to COVID-19; Z87.891 Personal history of nicotine dependence
CPT/HCPCS: 36415; 71046; 80048; 80053; 83690; 83735; 83880; 84484; 85025; 85610; 85730; 87425; 87493; 87637; 87798; 93005; 94640; 96365; 96366; 96367; 96368; 96375; 99284; 99285; A9270; G0378; J0456; J1650; J2919; J3475; J7512

== ENCOUNTER 2024-05-17 08:25 | Observation (INO) | payer MEDICARE, OTHER, SELFPAY ==
[2024-05-17] VITALS (74 sets, daily range): BP systolic 111–182; BP diastolic 54–125; PULSE 58–92; RESP 11–30; TEMP 36.4; O2SAT 89–100; BMI 33.9
--- NOTE | ~2024-05-17 | NM_ITS ---
EXAMINATION: NM michelet stress w perfusion DATE: 05/18/2024 15:31 INDICATION: Chest pain. TECHNIQUE: Rest images were obtained following intravenous administration of 10.0 mCi Tc99m tetrofosm in (Myoview). The patient was infused intravenously with Lexiscan (regadenoson). Then, 30.43 mCi Tc99 m tetrofosmin (Myoview) was administered intravenously, and stress images were obtained. Data was rec onstructed into short axis and horizontal and vertical long axis SPECT images. Gated SPECT images wer e also obtained. COMPARISON: None. FINDINGS: There is no definite reversible or fixed perfusion abnormality to suggest ischemia or infar ction. There is no segmental wall motion abnormality. Left ventricular ejection fraction measures 6 9%. IMPRESSION: 1. No definite ischemia or infarct. 2. Normal left ventricular ejection fraction measuring 69%. Reviewed, dictated and finalized at location A. BURNER HELPER
--- NOTE | ~2024-05-17 | XR_ITS ---
EXAMINATION: XR chest 2V DATE: 05/17/2024 09:13 INDICATION: Chest pain TECHNIQUE: PA and lateral views of the chest were obtained. COMPARISON: Chest radiograph dated 04/13/2024 FINDINGS: Biapical pleural-parenchymal scarring. Small left paracardial fat pad. No other airspace opacities, p ulmonary edema, pleural effusion or pneumothorax. Heart size is normal. Mild thoracic spondylosis wit h bridging osteophytes at multiple levels consistent with diffuse idiopathic skeletal hyperostosis (D [place]). IMPRESSION: 1. No acute cardiopulmonary disease. Reviewed, dictated and finalized at location B. ING PRESS OPERATOR
--- NOTE | 2024-05-17 08:26 | ECG_ITS ---
Test Date: 2024-05-17 08:31:22 Measurements Intervals [place] Rate: 68 P: 75 NM: 141 QRS: 89 QRSD: 93 T: 27 QT: 371 QTc: 395 Interpretive Statements SINUS RHYTHM LOW QRS VOLTAGE IN PRECORDIAL LEADS [QRS DEFLECTION < 1.0 mV IN CHEST LEADS] Compared to ECG 04/13/2024 19:43:51 No significant changes Electronically Signed On 05-18-2024 09:44:17 PRODUCT SUPPORT CONSULTANT by Jamal Grant M.D.
--- OUTSIDE RECORDS SUMMARY | 2024-05-17 08:45 | XMS_ITS | Clinical Summary ---
Author Organization [facility] Address [address] [place] [address] Care Team Providers Care Range Feeder Name Role Phone Cisco Dumont DO Primary Care Provider [phone] Allergies No known active allergies Medications lisinopril (PRINIVIL) 20 MG tablet Take 1 tablet (20 mg total) by mouth daily. Active albuterol sulfate HFA 108 (90 Base) MCG/ACT inhaler Inhale 4 puffs into the lungs every 4 (four) hours as needed for Wheezing or Shortness of breath. 18 g Active Encounters Date Type Department Care Team Description 04/01/2024 7:16 AM FORKLIFT MECHANIC - 04/01/2024 9:35 AM [facility] Emergency [facility] Emergency Room [address] [place] [address] Reilly Stewart MD Shortness Of Breath Discharge [...] Sex Assigned at Male 04/01/2024 7:39 AM FORKLIFT MECHANIC Legal Sex Male 7:12 AM FORKLIFT MECHANIC Gender Identity Not on file Sexual Orientation Not on file Last Filed Vital Signs Vital Sign Reading Time Taken Comments Blood Pressure 162/96 04/01/2024 9:15 AM FORKLIFT MECHANIC Pulse 70 04/01/2024 9:15 AM FORKLIFT MECHANIC Temperature 36.5 C (97.7 F) 04/01/2024 9:15 AM FORKLIFT MECHANIC Respiratory Rate 18 04/01/2024 9:15 AM FORKLIFT MECHANIC Oxygen Saturation 94% 04/01/2024 9:15 AM FORKLIFT MECHANIC Inhaled Oxygen Concentration - - Weight 114.3 kg (251 lb 15.8 oz) 04/01/2024 7:13 AM FORKLIFT MECHANIC Height 180.3 cm (5' 11 ) 04/01/2024 7:13 AM FORKLIFT MECHANIC Body Mass Index 35.14 04/01/2024 7:13 AM FORKLIFT MECHANIC Plan of Treatment Health Maintenance Due Date [...] XR CHEST PA+LAT STAT 04/01/2024 8:20 AM FORKLIFT MECHANIC ECG 12-LEAD Routine 04/01/2024 7:35 AM FORKLIFT MECHANIC PRO-BRAIN NATRIURETIC PEPTIDE STAT 04/01/2024 7:18 AM FORKLIFT MECHANIC TROPONIN, QUANT STAT 04/01/2024 7:18 AM FORKLIFT MECHANIC COMPREHENSIVE METABOLIC PANEL STAT 04/01/2024 7:18 AM FORKLIFT MECHANIC CBC W/DIFF AUTOMATED STAT 04/01/2024 7:18 AM FORKLIFT MECHANIC from Last 3 Months Results * XR CHEST PA+LAT (04/01/2024 8:20 AM FORKLIFT MECHANIC) Anatomical Region Laterality Modality Chest Radiographic Cuca ging 04/01/2024 8:24 AM FORKLIFT MECHANIC Impressions 04/01/2024 8:27 AM FORKLIFT MECHANIC IMPRESSION: 1. No focal consolidation or acute findings. 2. Nodular densities in the left lung base, favored to reflect calcified granulomas. Recommend nonemergent outpatient CT chest without contrast, if not previously performed, for confirmation. Ordered By: REILLY STEWART Interpreted By: Srinivasan Dubon MD, 04/01/2024 8:24 AM Narrative 04/01/2024 8:27 AM FORKLIFT MECHANIC [facility] [address] [place] [id number] XR CHEST PA+LAT INDICATION: dyspnea TECHNIQUE: PA and lateral views of the chest. COMPARISON: None FINDINGS: The cardiomediastinal silhouette is within normal limits. There is no pulmonary consolidation. Nodular densities project over the left lung base, likely reflective of granulomas. No pleural effusions or pneumothorax. No acute osseous abnormality. Moderate thoracic spondylosis. Procedure Note Srinivasan Dubon MD - 04/01/2024 [facility] [address] [place] [address] XR CHEST PA+LAT INDICATION: dyspnea TECHNIQUE: PA [...] * ECG 12 lead (04/01/2024 7:35 AM FORKLIFT MECHANIC) 04/01/2024 7:35 AM FORKLIFT MECHANIC Narrative [facility] ([facility] RAD - 04/01/2024 8:[address] [facility] Test Date: 2024-04-01 Pat Name: INDIA[place] VALENTINEGermain COYNE Department: 85 Room: EXAM 202 Gender: M Residue Furnace Operator: : 1945 Requested By: REILLY STEWART Order Number: [id number] Balaji NOVA: Carlo Snow Measurements Intervals Lafferty Rate: 61 P: 79 SD: 162 QRS: 104 QRSD: 97 T: 60 QT: 369 QTc: 374 Interpretive Statements SINUS RHYTHM RIGHT AXIS DEVIATION [QRS AXIS > 100] No previous ECG available for comparison LIFT MECHANIC Procedure Note Carlo Snow MD - 04/01/2024 [facility] Test Date: 2024-04-01 Pat Name: INDIANA DOMINGUEZ JR. Department: 85 Room: EXAM 202 Gender: M Residue Furnace Operator: : 1945 Requested By: REILLY STEWART Order Number: [id number] Balaji NOVA: Carlo Snow Measurements Intervals Lafferty Rate: 61 P: 79 SD: 162 QRS: 104 QRSD: 97 T: 60 QT: 369 QTc: 374 Interpretive Statements SINUS RHYTHM RIGHT AXIS DEVIATION [QRS AXIS > 100] No previous ECG available for comparison LIFT MECHANIC us Reilly Stewart MD ECG ORDERABLES Final Resu lt [facility] ([facility]) RAD * PRO-BRAIN NATRIURETIC PEPTIDE (04/01/2024 7:18 AM FORKLIFT MECHANIC) PRO-B TYPE NATRIURETIC PEPTIDE 119 <450 PG/ML 04/01/2024 7:57 AM [facility] Comment: CUT POINTS ESTABLISHED BY [...] 72% FOR ACUTE CHF. 04/01/2024 7:18 AM FORKLIFT MECHANIC us Reilly Stewart MD LABORATORY Final Resu lt [facility] [address] [place] [address], [place] [phone] * (ABNORMAL) COMPREHENSIVE METABOLIC PANEL (04/01/2024 7:18 AM FORKLIFT MECHANIC) Pathologist [facility] GLUCOSE 94 70 - 99 MG/DL 04/01/2024 7:57 AM [facility] BUN 16 7 - 18 MG/DL 04/01/2024 7:57 AM [facility] CREATININE S/P/B 1.04 0.7 - 1.3 MG/DL 04/01/2024 7:57 AM [facility] SODIUM S/P/B 139 136 - 145 MMOL/L 04/01/2024 7:57 AM [facility] POTASSIUM S/P/B 4.1 3.5 - 5.1 MMOL/L 04/01/2024 7:57 AM [facility] CHLORIDE S/P/B 103 100 - 108 MMOL/L 04/01/2024 7:57 AM [facility] CO2 33.9(H) 21 - 32 MMOL/L 04/01/2024 7:57 AM [facility] CALCIUM S/P/B 9.1 8.5 - 10.1 MG/DL 04/01/2024 7:57 AM [facility] BILIRUBIN TOTAL S/P/B 0.7 0.2 - 1.2 MG/DL 04/01/2024 7:57 AM [facility] TOTAL PROTEIN S/P/B 7.5 6.4 - 8.2 G/DL 04/01/2024 7:57 AM [facility] ALBUMIN S/P/B 3.8 3.4 - 5.0 G/DL 04/01/2024 7:57 AM [facility] AST 17 15 - 37 U/L 04/01/2024 7:57 AM [facility] ALT 13(L) 16 - 60 U/L 04/01/2024 7:57 AM [facility] ALKALINE PHOSPHATASE S/P/B 111 50 - 136 U/L 04/01/2024 7:57 AM [facility] ANION GAP 2.1(L) 5 - 15 MMOL/L 04/01/2024 7:57 AM [facility] BUN CREATININE RATIO 15.4 6 - 26 04/01/2024 7:57 AM [facility] A/G RATIO 1.0 1.0 - 2.0 RATIO 04/01/2024 7:57 AM [facility] GFR ESTIMATE 73(L) >90 ML/MIN/1.7 3 M2 04/01/2024 7:57 AM [facility] Comment: NOTE: eGFR is not calculated for patients <18 years of age. This is an estimated GFR calculation using the new CKD EPI creatinine equation without race and so does not require a correction factor for race. This estimated GFR should not be used for calculating drug doses. 04/01/2024 7:18 AM FORKLIFT MECHANIC us Reilly Stewart MD LABORATORY Final Resu lt [facility] [address] [place] [address], * CBC W/DIFF AUTOMATED (04/01/2024 7:18 AM FORKLIFT MECHANIC) WBC 7.54 4.4 - 11.0 x10'3/uL 04/01/2024 7:42 AM [facility] RBC 5.53 4.50 - 5.90 x10'6/uL 04/01/2024 7:42 AM [facility] HGB 15.7 14.0 - 17.5 G/DL 04/01/2024 7:42 AM [facility] HCT 49.2 41.5 - 50.4 % 04/01/2024 7:42 AM [facility] MCV 89.0 80.0 - 96.0 FL 04/01/2024 7:42 AM [facility] MCH 28.4 26.5 - 31.4 PG 04/01/2024 7:42 AM [facility] MCHC 31.9 31.9 - 34.8 G/DL 04/01/2024 7:42 AM [facility] RDW 13.8 12.3 - 14.3 % 04/01/2024 7:42 AM [facility] PLT 185 151 - 353 x10'3/uL 04/01/2024 7:42 AM [facility] MPV 9.7 9.7 - 11.9 FL 04/01/2024 7:42 AM [facility] RBC MORPHOLOGY NORMAL 04/01/2024 7:42 AM [facility] PLT MORPH. NORMAL 04/01/2024 7:42 AM [facility] WBC MORPHOLOGY NORMAL 04/01/2024 7:42 AM [facility] LYMPHOCYTES % 21.8 15.8 - 45.0 % 04/01/2024 7:42 AM [facility] NEUTROPHILS % 62.6 42.1 - 71.9 % 04/01/2024 7:42 AM [facility] MONOCYTES % 11.3 5.7 - 12.5 % 04/01/2024 7:42 AM [facility] EOSINOPHILS 3.2 0.0 - 5.6 % 04/01/2024 7:42 AM [facility] BASOPHILS 0.8 0.0 - 1.3 % 04/01/2024 7:42 AM [facility] ABS. NEUTROPHILS 4.73 1.40 - 6.00 x10'3/uL 04/01/2024 7:42 AM [facility] IMMATURE GRANS % 0.3 0.0 - 0.5 % 04/01/2024 7:42 AM [facility] ABS. LYMPHOCYTES 1.64 0.80 - 4.70 x10'3/uL 04/01/2024 7:42 AM [facility] 04/01/2024 7:18 AM FORKLIFT MECHANIC us Reilly Stewart MD LABORATORY Final Resu lt [facility] [address] [place] [address], [place] [phone] * TROPONIN, QUANT (04/01/2024 7:18 AM FORKLIFT MECHANIC) TROPONIN I HIGH SENSITIVITY 5 0 - 75 ng/L 04/01/2024 7:51 AM FORKLIFT MECHANIC [facility] Comment: HIGH DOSES OF BIOTIN, TROPONIN-SPECIFIC AUTOANTIBODIES, AND ANTIBODY THERAPY CONTAINING HAMA MAY INTERFERE WITH THIS TEST RESULT. CORRELATION TO CLINICAL HISTORY AND PRESENTATION RECOMMENDED. 04/01/2024 7:18 AM FORKLIFT MECHANIC us Reilly Stewart MD LABORATORY Final Resu lt [facility] [address] [place] [address], from Last 3 Months Insurance MEDICARE [place] [id number] Care Teams Range Feeder Relationship Specialty Start Date End Date Cisco Dumont DO [address] [id number] PCP - General INTERNAL MEDICINE 04/01/24
[2024-05-17] MEDS: ASPIRIN 81 MG CHEWABLE TABLET 324 MG PO (08:49)
[2024-05-17 08:54] LABS: Basophils Percent Auto 0.4 % (0.2-1.2); Eosinophils Absolute Auto 0.1 K/mm3 (0-0.3); Eosinophils Percent Auto 1.6 % (0-4.4); Hematocrit 49.2 % (42.0-52.0); Hemoglobin 15.8 g/dL (14.0-18.0); Immature Granulocyte Absolute 0.03 K/mm3 (0.00-0.031); Immature Granulocyte Percent A 0.4 % (0-0.5); Lymphocytes Absolute Auto 1.62 K/mm3 (0.9-3.2); Lymphocytes Percent Auto 21.3 % (18.3-44.2); Mean Corpuscular HGB Conc 32.1 g/dl (32-36); Mean Corpuscular Hemoglobin 28.4 pg (26-34); Mean Corpuscular Volume 88.5 fl (80-100); Mean Platelet Volume 9.8 fl (7.4-10.4); Monocytes Absolute Auto 0.5 K/mm3 (0.1-0.6); Monocytes Percent Auto 7.1 % (2.6-8.5); Neutrophils Absolute Auto 5.3 K/mm3 (1.3-6.7); Neutrophils Percent Auto 69.2 % (45.5-73.1); Platelet Count Result 202 k/mm3 (150-375); Red Blood Count 5.56 M/mm3 (4.6-6.20); Red Cell Distribution Width 13.8 % (11.5-14.5); White Blood Count 7.6 K/mm3 (4.5-10.0)
--- NOTE | 2024-05-17 08:59 | ED_ITS ---
HPI - Chest Pain General Chief Complaint: Chest Pain Stated Complaint: chest pain Time Seen by Provider: 05/17/24 08:38 History of Present Illness HPI narrative: Pt presents with two episodes of chest pain with exertion. Pt says he had an episode of chest pain when walking last night which resolved quickly with rest. Pt had another similar episode this morning which also resolved with rest. Pt has not had this happen before. Pt has COPD but his SOB is chronic and not any different than usual. Related Data Home Medications ?Medication ?Instructions ?Recorded ?Confirmed ?Last Taken ?Type dutasteride 0.5 mg capsule 0.5 mg PO DAILY 04/26/19 04/29/24 Unknown History (Avodart) timolol maleate (PF) 0.5 % eye 1 drop ophthalmic (eye) DAILY 04/26/19 04/29/24 Unknown History drops in a dropperette (Timoptic Ocudose (PF)) docusate sodium 100 mg capsule 100 mg PO DAILY 09/22/22 04/29/24 Unknown History (Stool Softener) Allergies Allergy/AdvReac Type Severity Reaction Status Date / Time No Known Allergies Allergy Verified 05/17/24 08:38 Review of Systems 2 Review of Systems: All systems reviewed & are unremarkable except as noted in HPI and below PMFSH Past Medical History Medical History (Updated 05/17/24 @ 13:15 by Laisha Prajapati APRN) Former smoker COPD (chronic obstructive pulmonary disease) History of colon polyps BPH associated with nocturia Essential (primary) hypertension Family History Family History Sibling Family history of lung cancer, Onset Age: 56 Patient's brother is Accident caused by farm tractor Mother Cerebrovascular accident Macular degeneration Father Acute myocardial infarction Sibling No problems noted. Other Diabetes mellitus Family history of malignant neoplasm Hypertension Social History Social History Smoking packs per day: 1 Smoking cigarettes per day: 20.0 Years smoked: 20 Smoking pack-years: 20.00 Smoking status: Former smoker Tobacco type: cigarettes Second hand tobacco smoke exposure: No Smoking end date: 03/16/75 Alcohol intake: never Substance use: never Substance use type: does not use Do You Feel Safe in your Home?: Yes Lack of Transportation: No Lack of Food: Never True Current Housing: I Have Housing Concerned About Future Housing: No Difficulty Paying Gas/Electric Bills: No Difficulty Paying for Meds: No Currently Unemployed: No Education: High School Diploma/GED Difficulty w/ Childcare or Family Care: No Living arrangements: with family Occupation/Education: retired 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 Gender identity (if verbalized by the patient): Male Spiritual care concerns: No Exam 2 Const: General: healthy appearing and no acute distress Nutritional Appearance: well nourished Orientation/consciousness: patient oriented x3 Limitations: no limitations Chest: Chest palpation & inspection: normal inspection of the chest Resp: Effort & Inspection: normal respiratory effort Auscultation: clear to auscultation bilaterally Cardio: Rate: regular rate Rhythm: regular rhythm Other: diminished GI: GI Palp: Yes Soft to palpation and No Tenderness to palpation present (GI) Auscultation: normal bowel sounds Skin: General skin exam: normal color Rashes: no rashes Wounds: no wounds Neuro: General: patient oriented x3, moves all extremities and CN's II-XI intact bilaterally Cranial nerves: Yes Nystagmus not present Speech: n ormal speech Extrem: General: normal to inspection and no clubbing, cyanosis or edema Psych: Mental Status: mental status grossly normal Affect: normal affect Course Vital Signs Vital signs: Vital Signs Temperature 97.5 F L 05/17/24 08:28 Pulse Rate 70 05/17/24 08:28 Respiratory Rate 17 05/17/24 08:28 Blood Pressure 120/68 05/17/24 08:28 Pulse Oximetry 99 05/17/24 08:28 Oxygen Delivery Room Air 05/17/24 08:28 Temperature 97.5 F L 05/17/24 08:28 Pulse Rate 77 05/17/24 15:18 Respiratory Rate 28 H 05/17/24 15:18 Blood Pressure 123/54 L 05/17/24 14:31 Pulse Oximetry 94 05/17/24 15:04 Oxygen Delivery Room Air 05/17/24 08:40 MDM - Chest Pain MDM Narrative Medical decision making narrative: Pt has had two episodes of cp with exerion relieved with rest and no prior history. will need to rule out CAD. Story suspicious for unstable angina and pt will likely require observation. both ekg's and trop neg but story still concerning. discussed with Dr Lindquist and agrees to admit for obs Lab Data 05/17/24 08:48 05/17/24 08:48 Labs: Lab Results 05/17/24 Range/Units 08:48 WBC 7.6 (4.5-10.0) K/mm3 RBC 5.56 (4.6-6.20) M/mm3 Hgb 15.8 (14.0-18.0) g/dL Hct 49.2 (42.0-52.0) % MCV 88.5 (80-100) fl MCH 28.4 (26-34) pg MCHC 32.1 (32-36) g/dl RDW 13.8 (11.5-14.5) % Plt Count 202 (150-375) k/mm3 MPV 9.8 (7.4-10.4) fl Immature Gran % (Auto) 0.4 (0-0.5) % Neut % (Auto) 69.2 (45.5-73.1) % Lymph % (Auto) 21.3 (18.3-44.2) % [place] % (Auto) 7.1 (2.6-8.5) % Eos % (Auto) 1.6 (0-4.4) % Baso % (Auto) 0.4 (0.2-1.2) % Lymph # (Auto) 1.62 (0.9-3.2) K/mm3 [place] # (Auto) 0.5 (0.1-0.6) K/mm3 Eos # (Auto) 0.1 (0-0.3) K/mm3 Baso # (Auto) 0.0 (0.0-0.1) K/mm3 Abs Immat Gran (auto) 0.03 (0.00-0.031) K/mm3 Absolute Neuts (auto) 5.3 (1.3-6.7) K/mm3 Absolute Nucleated RBC 0.000 (0.0-0.012) K/mm3 Nucleated RBC % 0.0 (0.0-0.2) % PT 14.5 (11.1-14.7) Seconds INR 1.1 APTT 28.4 (22.3-36.8) Seconds Sodium 142 (137-145) mmol/L Potassium 4.3 (3.4-5.0) mmol/L Chloride 103 (98-107) mmol/L Carbon Dioxide 30 (22-30) mmol/L Anion Gap 9 (4-12) mmol/L BUN 15 (9-20) mg/dL Creatinine 0.82 (0.7-1.3) mg/dL Estim Creat Clear Calc 82 ml/min Estimated GFR > 60 (59 - ) Glucose 103 (65-110) mg/dL Calcium 9.9 (8.4-10.2) mg/dL Total Bilirubin 0.7 (0.2-1.3) mg/dL AST 22 (17-59) U/L ALT 26 (6-50) U/L Alkaline Phosphatase 93 (38-126) U/L Troponin I < 0.012 (0.000-0.034) ng/mL Total Protein 8.0 (6.3-8.2) g/dL Albumin 4.6 (3.5-5.1) g/dL Lipase 125 (23-300) U/L TSH 2.230 (0.465-4.680) uIU/mL Discharge Plan Discharge Clinical Impression: Chest pain Patient Disposition: Still a Patient Condition: Stable
[2024-05-17 09:05] LABS: INR 1.1; Prothrombin Time 14.5 Seconds (11.1-14.7)
[2024-05-17 09:06] LABS: Partial Thromboplastin Time 28.4 Seconds (22.3-36.8)
[2024-05-17 09:08] LABS: Alanine Aminotransferase 26 U/L (6-50); Albumin Level 4.6 g/dL (3.5-5.1); Alkaline Phosphatase 93 U/L (38-126); Anion Gap 9 mmol/L (4-12); Aspartate Amino Transferase 22 U/L (17-59); Bilirubin,Total 0.7 mg/dL (0.2-1.3); Blood Urea Nitrogen 15 mg/dL (9-20); Calcium 9.9 mg/dL (8.4-10.2); Carbon Dioxide 30 mmol/L (22-30); Chloride 103 mmol/L (98-107); Estimated CRCL calculation 82 ml/min; Estimated Glomerular Filt Rate > 60; Glucose 103 mg/dL (65-110); Lipase 125 U/L (23-300); Potassium 4.3 mmol/L (3.4-5.0); Sodium 142 mmol/L (137-145)
[2024-05-17 09:19] LABS: Troponin I < 0.012 ng/mL (0.000-0.034)
--- OUTSIDE RECORDS SUMMARY | 2024-05-17 09:36 | XMS_ITS | Clinical Summary ---
Author Organization [facility] Address [address] [place] [address] Care Team Providers Care Fuel Attendant Name Role Phone Cisco Dumont DO Primary Care Provider [phone] Allergies No known active allergies Medications lisinopril (PRINIVIL) 20 MG tablet Take 1 tablet (20 mg total) by mouth daily. Active albuterol sulfate HFA 108 (90 Base) MCG/ACT inhaler Inhale 4 puffs into the lungs every 4 (four) hours as needed for Wheezing or Shortness of breath. 18 g Active Encounters Date Type Department Care Team Description 04/01/2024 7:16 AM OPTOMETRY PROFESSOR - 04/01/2024 9:35 AM [facility] Emergency [facility] Emergency Room [address] [place] [address] Reilly Stewart MD Shortness Of Breath Discharge [...] Sex Assigned at Male 04/01/2024 7:39 AM OPTOMETRY PROFESSOR Legal Sex Male 7:12 AM OPTOMETRY PROFESSOR Gender Identity Not on file Sexual Orientation Not on file Last Filed Vital Signs Vital Sign Reading Time Taken Comments Blood Pressure 162/96 04/01/2024 9:15 AM OPTOMETRY PROFESSOR Pulse 70 04/01/2024 9:15 AM OPTOMETRY PROFESSOR Temperature 36.5 C (97.7 F) 04/01/2024 9:15 AM OPTOMETRY PROFESSOR Respiratory Rate 18 04/01/2024 9:15 AM OPTOMETRY PROFESSOR Oxygen Saturation 94% 04/01/2024 9:15 AM OPTOMETRY PROFESSOR Inhaled Oxygen Concentration - - Weight 114.3 kg (251 lb 15.8 oz) 04/01/2024 7:13 AM OPTOMETRY PROFESSOR Height 180.3 cm (5' 11 ) 04/01/2024 7:13 AM OPTOMETRY PROFESSOR Body Mass Index 35.14 04/01/2024 7:13 AM OPTOMETRY PROFESSOR Plan of Treatment Health Maintenance Due Date [...] XR CHEST PA+LAT STAT 04/01/2024 8:20 AM OPTOMETRY PROFESSOR ECG 12-LEAD Routine 04/01/2024 7:35 AM OPTOMETRY PROFESSOR PRO-BRAIN NATRIURETIC PEPTIDE STAT 04/01/2024 7:18 AM OPTOMETRY PROFESSOR TROPONIN, QUANT STAT 04/01/2024 7:18 AM OPTOMETRY PROFESSOR COMPREHENSIVE METABOLIC PANEL STAT 04/01/2024 7:18 AM OPTOMETRY PROFESSOR CBC W/DIFF AUTOMATED STAT 04/01/2024 7:18 AM OPTOMETRY PROFESSOR from Last 3 Months Results * XR CHEST PA+LAT (04/01/2024 8:20 AM OPTOMETRY PROFESSOR) Anatomical Region Laterality Modality Chest Radiographic Cuca ging 04/01/2024 8:24 AM OPTOMETRY PROFESSOR Impressions 04/01/2024 8:27 AM OPTOMETRY PROFESSOR IMPRESSION: 1. No focal consolidation or acute findings. 2. Nodular densities in the left lung base, favored to reflect calcified granulomas. Recommend nonemergent outpatient CT chest without contrast, if not previously performed, for confirmation. Ordered By: REILLY STEWART Interpreted By: Srinivasan Dubon MD, 04/01/2024 8:24 AM Narrative 04/01/2024 8:27 AM OPTOMETRY PROFESSOR [facility] [address] [place] [phone] XR CHEST PA+LAT INDICATION: dyspnea TECHNIQUE: PA and lateral views of the chest. COMPARISON: None FINDINGS: The cardiomediastinal silhouette is within normal limits. There is no pulmonary consolidation. Nodular densities project over the left lung base, likely reflective of granulomas. No pleural effusions or pneumothorax. No acute osseous abnormality. Moderate thoracic spondylosis. Procedure Note Srinivasan Dubon MD - 04/01/2024 [facility] [address] [place] [address] XR CHEST PA+LAT INDICATION: dyspnea TECHNIQUE: PA [...] * ECG 12 lead (04/01/2024 7:35 AM OPTOMETRY PROFESSOR) 04/01/2024 7:35 AM OPTOMETRY PROFESSOR Narrative [facility] ([facility] RAD - 04/01/2024 8:19 AM OPTOMETRY PROFESSOR [facility] Test Date: 2024-04-01 Pat Name: INDIANA VALENTINEGermain COYNE Department: 85 Room: EXAM 202 Gender: M Planisher: : 1945 Requested By: REILLY STEWART Order Number: [id number] Balaji NOVA: Carlo Snow Measurements Intervals [place] Rate: 61 P: 79 MD: 162 QRS: 104 QRSD: 97 T: 60 QT: 369 QTc: 374 Interpretive Statements SINUS RHYTHM RIGHT AXIS DEVIATION [QRS AXIS > 100] No previous ECG available for comparison METRY PROFESSOR Procedure Note Carlo Snow MD - 04/01/2024 [facility] Test Date: 2024-04-01 Pat Name: INDIANA DOMINGUEZ JR. Department: 85 Room: EXAM 202 Gender: M Planisher: : 1945 Requested By: REILLY STEWART Order Number: [id number] Balaji NOVA: Carlo Snow Measurements Intervals [place] Rate: 61 P: 79 MD: 162 QRS: 104 QRSD: 97 T: 60 QT: 369 QTc: 374 Interpretive Statements SINUS RHYTHM RIGHT AXIS DEVIATION [QRS AXIS > 100] No previous ECG available for comparison METRY PROFESSOR us Reilly Stewart MD ECG ORDERABLES Final Resu lt [facility] ([facility]) RAD * PRO-BRAIN NATRIURETIC PEPTIDE (04/01/2024 7:18 AM OPTOMETRY PROFESSOR) PRO-B TYPE NATRIURETIC PEPTIDE 119 <450 PG/ML 04/01/2024 7:57 AM [facility] Comment: CUT POINTS ESTABLISHED BY [...] 72% FOR ACUTE CHF. 04/01/2024 7:18 AM OPTOMETRY PROFESSOR us Reilly Stewart MD LABORATORY Final Resu lt [facility] [address] [place] [address], [place] [phone] * (ABNORMAL) COMPREHENSIVE METABOLIC PANEL (04/01/2024 7:18 AM OPTOMETRY PROFESSOR) Pathologist [facility] GLUCOSE 94 70 - 99 MG/DL 04/01/2024 7:57 AM [facility] BUN 16 7 - 18 MG/DL 04/01/2024 7:57 AM [facility] CREATININE S/P/B 1.04 0.7 - 1.3 MG/DL 04/01/2024 7:57 AM [facility] SODIUM S/P/B 139 136 - 145 MMOL/L 04/01/2024 7:57 AM [facility] POTASSIUM S/P/B 4.1 3.5 - 5.1 MMOL/L 04/01/2024 7:57 AM [facility] CHLORIDE S/P/B 103 100 - 108 MMOL/L 04/01/2024 7:57 AM [facility] CO2 33.9(H) 21 - 32 MMOL/L 04/01/2024 7:57 AM [facility] CALCIUM S/P/B 9.1 8.5 - 10.1 MG/DL 04/01/2024 7:57 AM [facility] BILIRUBIN TOTAL S/P/B 0.7 0.2 - 1.2 MG/DL 04/01/2024 7:57 AM [facility] TOTAL PROTEIN S/P/B 7.5 6.4 - 8.2 G/DL 04/01/2024 7:57 AM [facility] ALBUMIN S/P/B 3.8 3.4 - 5.0 G/DL 04/01/2024 7:57 AM [facility] AST 17 15 - 37 U/L 04/01/2024 7:57 AM [facility] ALT 13(L) 16 - 60 U/L 04/01/2024 7:57 AM [facility] ALKALINE PHOSPHATASE S/P/B 111 50 - 136 U/L 04/01/2024 7:57 AM [facility] ANION GAP 2.1(L) 5 - 15 MMOL/L 04/01/2024 7:57 AM [facility] BUN CREATININE RATIO 15.4 6 - 26 04/01/2024 7:57 AM [facility] A/G RATIO 1.0 1.0 - 2.0 RATIO 04/01/2024 7:57 AM [facility] GFR ESTIMATE 73(L) >90 ML/MIN/1.7 3 M2 04/01/2024 7:57 AM [facility] Comment: NOTE: eGFR is not calculated for patients <18 years of age. This is an estimated GFR calculation using the new CKD EPI creatinine equation without race and so does not require a correction factor for race. This estimated GFR should not be used for calculating drug doses. 04/01/2024 7:18 AM OPTOMETRY PROFESSOR us Reilly Stewart MD LABORATORY Final Resu lt [facility] [address] [place] [address], * CBC W/DIFF AUTOMATED (04/01/2024 7:18 AM OPTOMETRY PROFESSOR) WBC 7.54 4.4 - 11.0 x10'3/uL 04/01/2024 7:42 AM [facility] RBC 5.53 4.50 - 5.90 x10'6/uL 04/01/2024 7:42 AM [facility] HGB 15.7 14.0 - 17.5 G/DL 04/01/2024 7:42 AM [facility] HCT 49.2 41.5 - 50.4 % 04/01/2024 7:42 AM [facility] MCV 89.0 80.0 - 96.0 FL 04/01/2024 7:42 AM [facility] MCH 28.4 26.5 - 31.4 PG 04/01/2024 7:42 AM [facility] MCHC 31.9 31.9 - 34.8 G/DL 04/01/2024 7:42 AM [facility] RDW 13.8 12.3 - 14.3 % 04/01/2024 7:42 AM [facility] PLT 185 151 - 353 x10'3/uL 04/01/2024 7:42 AM [facility] MPV 9.7 9.7 - 11.9 FL 04/01/2024 7:42 AM [facility] RBC MORPHOLOGY NORMAL 04/01/2024 7:42 AM [facility] PLT MORPH. NORMAL 04/01/2024 7:42 AM [facility] WBC MORPHOLOGY NORMAL 04/01/2024 7:42 AM [facility] LYMPHOCYTES % 21.8 15.8 - 45.0 % 04/01/2024 7:42 AM [facility] NEUTROPHILS % 62.6 42.1 - 71.9 % 04/01/2024 7:42 AM [facility] MONOCYTES % 11.3 5.7 - 12.5 % 04/01/2024 7:42 AM [facility] EOSINOPHILS 3.2 0.0 - 5.6 % 04/01/2024 7:42 AM [facility] BASOPHILS 0.8 0.0 - 1.3 % 04/01/2024 7:42 AM [facility] ABS. NEUTROPHILS 4.73 1.40 - 6.00 x10'3/uL 04/01/2024 7:42 AM [facility] IMMATURE GRANS % 0.3 0.0 - 0.5 % 04/01/2024 7:42 AM [facility] ABS. LYMPHOCYTES 1.64 0.80 - 4.70 x10'3/uL 04/01/2024 7:42 AM [facility] 04/01/2024 7:18 AM OPTOMETRY PROFESSOR us Reilly Stewart MD LABORATORY Final Resu lt [facility] [address] [place] [address], [place] [phone] * TROPONIN, QUANT (04/01/2024 7:18 AM OPTOMETRY PROFESSOR) TROPONIN I HIGH SENSITIVITY 5 0 - 75 ng/L 04/01/2024 7:51 AM OPTOMETRY PROFESSOR [facility] Comment: HIGH DOSES OF BIOTIN, TROPONIN-SPECIFIC AUTOANTIBODIES, AND ANTIBODY THERAPY CONTAINING HAMA MAY INTERFERE WITH THIS TEST RESULT. CORRELATION TO CLINICAL HISTORY AND PRESENTATION RECOMMENDED. 04/01/2024 7:18 AM OPTOMETRY PROFESSOR us Reilly Stewart MD LABORATORY Final Resu lt [facility] [address] [place] [address], from Last 3 Months Insurance MEDICARE [place] [id number] Care Teams Fuel Attendant Relationship Specialty Start Date End Date Cisco Dumont DO [address] [phone] PCP - General INTERNAL MEDICINE 04/01/24
--- NOTE | 2024-05-17 11:24 | ECG_ITS ---
Test Date: 2024-05-17 11:42:28 Measurements Intervals [place] Rate: 62 P: 66 UT: 151 QRS: 89 QRSD: 93 T: 43 QT: 385 QTc: 392 Interpretive Statements SINUS RHYTHM LOW QRS VOLTAGE IN PRECORDIAL LEADS [QRS DEFLECTION < 1.0 mV IN CHEST LEADS] Compared to ECG 05/17/2024 08:31:22 No significant changes Electronically Signed On 05-18-2024 11:00:32 B2B OUTSIDE SALES REPRESENTATIVE by Jamal Grant M.D.
--- NOTE | 2024-05-17 12:05 | P.HP_ITS ---
H&P: HPI History of Present Illness Date/Time: 05/17/24 12:05 Chief Complaint: Chest pain Narrative: This is a 78 old male with a significant past medical history of anxiety, BPH, hypertension, glaucoma, COPD, former smoker who presented to the hospital with complaints of chest pain. Patient states that he was walking for exercise yesterday and started feeling midsternal chest pain with mild diaphoresis which was relieved quickly after he rested. This morning he was exerting himself with just his daily routine and the chest pain started and again was relieved by rest. He then decided to come to the hospital for further evaluation. He denies any fever, chills, nausea, vomiting, diarrhea, abdominal pain, or shortness of breath. He denies any recent illness or sick contacts. He states that the chest pain did not radiate and stayed midsternal. He denies history of hyperlipidemia. Workup in the included chest x-ray which was negative for any acute cardiopulmonary disease. Labs were essentially unremarkable. Troponin negative x2. EKG showed sinus rhythm with a rate of 68, QTC 395, shown possibly mild ST depression in inferior leads, no ST elevation, BBB, or axis deviation. Patient was given 324 mg aspirin while in the ED. Cardiology consulted. Review of Systems Review of Systems: All systems reviewed & are unremarkable except as noted in HPI and below PMFSH Past Medical History Medical History (Updated 05/17/24 @ 13:15 by Laisha Prajapati APRN) Former smoker COPD (chronic obstructive pulmonary disease) History of colon polyps BPH associated with nocturia Essential (primary) hypertension Family History Family History Sibling Family history of lung cancer, Onset Age: 56 Patient's brother is Accident caused by farm tractor Mother Cerebrovascular accident Macular degeneration Father Acute myocardial infarction Sibling No problems noted. Other Diabetes mellitus Family history of malignant neoplasm Hypertension Social History Social History Smoking packs per day: 1 Smoking cigarettes per day: 20.0 Years smoked: 20 Smoking pack-years: 20.00 Smoking status: Former smoker Tobacco type: cigarettes Second hand tobacco smoke exposure: No Smoking end date: 03/16/75 Alcohol intake: never Substance use: never Substance use type: does not use Do You Feel Safe in your Home?: Yes Lack of Transportation: No Lack of Food: Never True Current Housing: I Have Housing Concerned About Future Housing: No Difficulty Paying Gas/Electric Bills: No Difficulty Paying for Meds: No Currently Unemployed: No Education: High School Diploma/GED Difficulty w/ Childcare or Family Care: No Living arrangements: with family Occupation/Education: retired 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 Gender identity (if verbalized by the patient): Male Spiritual care concerns: No Meds Home Medications and Allergies Home Medications ?Medication ?Instructions ?Recorded ?Confirmed ?Type dutasteride 0.5 mg capsule 0.5 mg PO DAILY 04/26/19 04/29/24 History (Avodart) timolol maleate (PF) 0.5 % eye 1 drop ophthalmic (eye) DAILY 04/26/19 04/29/24 History drops in a dropperette (Timoptic Ocudose (PF)) docusate sodium 100 mg capsule 100 mg PO DAILY 09/22/22 04/29/24 History (Stool Softener) lisinopril 20 mg tablet 20 mg PO DAILY #90 tabs 09/30/23 04/29/24 Rx albuterol sulfate 90 mcg/actuation 1 puff inhalation QID #6.7 grams 04/12/24 04/29/24 Rx aerosol inhaler benzonatate 100 mg capsule 100 mg PO TID PRN cough #30 caps 04/17/24 04/29/24 Rx ipratropium bromide 0.02 % 0.5 mg (2.5 mL) inhalation Q6HRT 04/17/24 Rx solution for inhalation PRN shortness of breath/wheezing #30 doses nebulizer accessories #1 ea 04/17/24 Rx nebulizer and compressor #1 ea 04/17/24 Rx fluticasone propionate 115 2 puff inhalation Q12HRT #1 04/29/24 04/29/24 Rx mcg-salmeterol 21 mcg/actuation applicator HFA inhaler (Advair HFA) montelukast 10 mg tablet 10 mg PO HS #30 tabs 04/29/24 04/29/24 Rx (Singulair) Allergies Allergy/AdvReac Type Severity Reaction Status Date / Time No Known Allergies Allergy Verified 05/17/24 08:38 Vital Signs Vital Signs - 24 hr 05/17/24 08:28 05/17/24 08:40 05/17/24 08:40 Temperature 97.5 F L Pulse Rate 70 73 Respiratory Rate 17 Blood Pressure 120/68 Pulse Oximetry 99 99 Oxygen Delivery Room Air Room Air 05/17/24 10:31 Temperature Pulse Rate 62 Respiratory Rate 20 Blood Pressure 111/64 Pulse Oximetry 98 Oxygen Delivery Exam Narrative: General: In no acute distress, well nourished Head: atraumatic, no encephalopathy Eyes:PERRLA, sclera clear ENT: moist mucous membranes, nasal passages clear Neck: supple, no JVD, no adenopathy, trachea midline Cardiac: Normal S1 and S2. No murmur, gallops or friction rubs, peripheral pulses intact. Respiratory: Lungs clear to auscultation, no adventitious lung sounds, currently on room air Gastrointestinal: soft, non-distended, non-tender, normoactive bowel sounds. : voiding without difficulty. Extremities: moves all extremities well, no edema Skin: clean, dry, intact. No wounds or lesions. Neuro: Alert and oriented x4, cranial nerves intact, no neuro deficits. Psych: normal mood, normal affect, interactive H&P: Results Labs Labs: Short CBC 05/17/24 Range/Units 08:48 WBC 7.6 (4.5-10.0) K/mm3 Hgb 15.8 (14.0-18.0) g/dL Hct 49.2 (42.0-52.0) % Plt Count 202 (150-375) k/mm3 BMP 05/17/24 08:48 Sodium 142 Potassium 4.3 Chloride 103 Carbon Dioxide 30 BUN 15 Creatinine 0.82 Glucose 103 Calcium 9.9 Cardiac Enzymes 05/17/24 Range/Units 08:48 Troponin I < 0.012 (0.000-0.034) ng/mL Liver Function 05/17/24 Range/Units 08:48 Total Bilirubin 0.7 (0.2-1.3) mg/dL AST 22 (17-59) U/L ALT 26 (6-50) U/L Alkaline Phosphatase 93 (38-126) U/L Albumin 4.6 (3.5-5.1) g/dL Imaging Chest x-ray: Radiologist's impression: EXAMINATION: XR chest 2V DATE: 05/17/2024 09:13 INDICATION: Chest pain TECHNIQUE: PA and lateral views of the chest were obtained. COMPARISON: Chest radiograph dated 04/13/2024 FINDINGS: Biapical pleural-parenchymal scarring. Small left paracardial fat pad. No other airspace opacities, pulmonary edema, pleural effusion or pneumothorax. Heart size is normal. Mild thoracic spondylosis with bridging osteophytes at multiple levels consistent with diffuse idiopathic skeletal hyperostosis (DISH). IMPRESSION: 1. No acute cardiopulmonary disease. Reviewed, dictated and finalized at location B. INE DEBURRER Assessment and Plan Assessment and plan (1) Stable angina: Code(s): I20.89 - Other forms of angina pectoris Status: Acute Assessment and Plan: reporting chest pain with exertion which is relieved by rest * Given ASA 324mg while in the ER * chest x-ray was negative * troponin negative x2 * heart score- 5, moderate risk * EKG showing sinus rhythm with a rate of 68, QTC 395--possible mild ST depression in inferior leads, no ST elevation * continuous cardiac monitoring * continue heart healthy diet * cardiology consulted * NM stress test ordered * echocardiogram ordered * Will recheck Lipid panel * Start daily aspirin 81 mg daily (2) Essential (primary) hypertension: Code(s): I10 - Essential (primary) hypertension Status: Acute Assessment and Plan: * blood pressures ranging 111/64 to 132/82 * continue lisinopril (3) COPD (chronic obstructive pulmonary disease): Code(s): J44.9 - Chronic obstructive pulmonary disease, unspecified Status: Acute Assessment and Plan: * continue Advair and albuterol * Continue Singulair * Duonebs ordered PRN (4) Former smoker: Code(s): Z87.891 - Personal history of nicotine dependence Status: Acute Assessment and Plan: * former 1 pack per day smoker times 20 years * quit 03/16/1975 (5) Elevated prostate specific antigen [PSA]: Code(s): R97.20 - Elevated prostate specific antigen [PSA] Status: Acute Assessment and Plan: * Continue Avodart Quality VTE Prophylaxis VTE prophylaxis: mechanical ordered Hospitalist MIPS Advance Care Plan I have confirmed that the patient's Advanced Care Plan is present, code status is documented, or surrogate decision maker is listed in patient medical record.: Yes Medication Reconciliation I have utilized all available resources to obtain, update and review the patients current medications (includes all prescriptions, OTC, herbals, cannabis, and nutritional supplements).: Yes
[2024-05-17 12:18] LABS: Troponin I < 0.012 ng/mL (0.000-0.034)
--- NOTE | 2024-05-17 12:23 | PC.NURSE ---
ordered patient a lunch tray at this time
[2024-05-17 13:45] LABS: Cholesterol 169 mg/dL (0-200); HDL Direct 33 mg/dL; Triglycerides 105 mg/dL (<150)
[2024-05-17 13:55] LABS: LDL Cholesterol Direct 95 mg/dL
--- NOTE | 2024-05-17 15:53 | ECG_ITS ---
Test Date: 2024-05-17 15:58:14 Measurements Intervals [place] Rate: 68 P: 64 TN: 152 QRS: 92 QRSD: 92 T: 40 QT: 369 QTc: 393 Interpretive Statements SINUS RHYTHM BORDERLINE RIGHT AXIS DEVIATION [QRS AXIS > 90] LOW QRS VOLTAGE IN PRECORDIAL LEADS [QRS DEFLECTION < 1.0 mV IN CHEST LEADS] Compared to ECG 05/17/2024 11:42:28 No significant changes Electronically Signed On 05-18-2024 13:09:42 CHEST PAINTING LEADER by Lulu Real M.D.
[2024-05-17 16:24] LABS: Troponin I < 0.012 ng/mL (0.000-0.034)
--- NOTE | 2024-05-17 18:24 | PC.NURSE ---
CALLED AND SPOKE WITH RESPIRATORY THERAPIST FOR BREATHING TREATMENT ORDER
[2024-05-17] MEDS: IPRATROPIUM 0.5 MG/ALBUTEROL SULFATE 2.5 MG AMPUL.NEB 3 ML INHALATION ×2 (18:25→23:15)
--- NOTE | 2024-05-17 20:44 | ADMGEN ---
This patient, Rg Barker Jr., was admitted to IMU Room 212-01. Patient/family oriented to hospital policies and general routines including ID bracelet, bed and alarms, visiting hours, pain management, procedures, bathroom and other care routines, personal items, smoking policy, room service/diet, and visiting hours. Information on how to activate the Rapid Response Team has been discussed. Patient/Family are encouraged to report perceived risks to care and to ask questions if they do not understand what they are told or what they should do.
[2024-05-18] VITALS (17 sets, daily range): BP systolic 112–147; BP diastolic 57–63; PULSE 60–89; RESP 18–20; TEMP 36.4–36.6; O2SAT 92–99
--- NOTE | 2024-05-18 | ECHO_ITS ---
Patient Info Name: Rg Barker Age: 78 years : 1945 Gender: Male Ht: 71 in Wt: 243 lbs BSA: 2.39 m2 HR: 75 bpm BP: 112 / 61 mmHg Heart Rhythm: Sinus Rhythm Exam Date: 05/18/2024 9:40 AM Exam Location: Echo Lab Patient Status: Inpatient Admit Date: 05/17/2024 Staff Ordering Physician: Laisha Prajapati APRN Defensive Line Coach: Nayeli Boykin RDCS Attending Provider: Go Nettles MD Referring Physician: Victorina HERNANDEZ; Exam Type: CA echo doppler color flow Study Info Indications - Chest pain Complete two-dimensional, color flow and Doppler transthoracic echocardiogram is performed. Summary 1. Left ventricular chamber dimension is normal. 2. Left ventricular systolic function is normal, estimated at 55-60%. 3. There is mildly increased left ventricular wall thickness. 4. The left ventricular diastolic function is grade I diastolic dysfunction. 5. Right ventricular systolic function is normal. 6. There is mild aortic valve regurgitation. 7. There is mild mitral valve regurgitation. 8. There is mild tricuspid valve regurgitation. Left Ventricle Left ventricular chamber dimension is normal. Left ventricular systolic function is normal, estimated at 55-60%. There is mildly increased left ventricular wall thickness. The left ventricular diastolic function is grade I diastolic dysfunction. Right Ventricle Right ventricular chamber dimension is normal. Right ventricular systolic function is normal. Left Atria Left atrial chamber dimension is normal. Right Atria Right atrial chamber dimension is normal. Atrial Septum Intact interatrial septum visualized by color flow imaging. Aortic Valve The aortic valve is probable trileaflet. There is no aortic valve stenosis. There is mild aortic valve regurgitation. Pulmonic Valve The pulmonic valve is not well visualized. There is trace pulmonic regurgitation. Mitral Valve There is mild mitral valve regurgitation. Tricuspid Valve There is mild tricuspid valve regurgitation. Pericardium/Pleural The pericardium appears epicardial fat pad. There is no pericardial effusion. Inferior Vena Cava Normal inferior vena cava with >50% collapse upon inspiration consistent with normal right atrial pressure, 3 mmHg. Aorta The aortic root size at the sinus of Valsalva is normal. Left Ventricular Outflow Tract Name Value Normal LVOT 2D LVOT Diameter 2.0 cm LVOT Doppler LVOT Peak Gradient 7 mmHg LVOT Mean Gradient 4 mmHg LVOT VTI 29 cm LVOT VTI/AV VTI Ratio 0.8 LVOT Stroke Volume 90 ml LVOT CO 6.8 l/min LVOT CI 2.9 l/min/m2 Pulmonic Valve Name Value Normal RVOT Doppler RVOT Peak Gradient 3 mmHg PV Doppler PV Peak Gradient 6 mmHg Mitral Valve Name Value Normal MV Doppler MV Decel Calloway 337 cm/s2 MV PHT 72 ms MV Area (PHT) 3.1 cm2 4.0-5.0 MV Diastolic Function MV E Peak Velocity 83 cm/s MV A Peak Velocity 79 cm/s MV E/A 1.0 MV Decel Time 247 ms MV Annular TDI MV E/e' (Septal) 11.4 <=8.0 MV E/e' (Lateral) 8.8 <=8.0 MV E/e' (Average) 10.1 Tricuspid Valve Name Value Normal TV Regurgitation Doppler TR Peak Velocity 296 cm/s TR Peak Gradient 33 mmHg Estimated PAP/RSVP RA Pressure 3 mmHg <=5 PA Systolic Pressure 38 mmHg <36 RV Systolic Pressure 38 mmHg <36 Aortic Valve Name Value Normal AV Doppler AV Peak Velocity 177 cm/s AV Peak Gradient 10 mmHg AV Mean Gradient 4 mmHg AV VTI 37 cm AV Area (Cont Eq VTI) 2.4 cm2 >=3.0 AV Area (Cont Eq Hong) 264.5 cm2 AV Regurgitation 2D LVOT Area 3.1 cm2 AV Regurgitation Doppler AR Decel Time 2,053 ms AR Decel Calloway 180 cm/s2 AR PHT 595 ms Ventricles Name Value Normal LV Dimensions 2D/MM IVS Diastolic Thickness (2D) 0.9 cm 0.6-1.0 LVID Diastole (2D) 4.9 cm 4.2-5.8 LVIW Diastolic Thickness (2D) 0.8 cm 0.6-1.0 LVID Systole (2D) 3.1 cm 2.5-4.0 LVOT Diameter 2.0 cm LV Mass (2D Cubed) 146.55 g 88.00-224.00 LV Mass Index (2D Cubed) 61 g/m2 49-115 Relative Wall Thickness (2D) 0.35 LV Fractional Shortening/Ejection Fraction 2D/MM LV Fractional Shortening (2D) 36 % 25-43 LV EF (2D Teicholz) 66 % 52-72 LV Diastolic Volume (4C MOD) 105 ml LV EF (4C MOD) 63 % LV Diastolic Volume (2C MOD) 90 ml LV EF (2C MOD) 66 % LV Diastolic Volume (BP MOD) 97 ml 62-150 LV Diastolic Volume Index (BP MOD) 41 ml/m2 34-74 LV Systolic Volume (BP MOD) 37 ml 21-61 LV Systolic Volume Index (BP MOD) 16 ml/m2 11-31 LV EF (BP MOD) 57 % 52-72 LV Diastolic Length (4C) 7.2 cm LV Systolic Length (4C) 6.0 cm LV Stroke Volume (4C MOD) 66 ml Atria Name Value Normal LA Dimensions LA Volume (4C A-L) 49 ml LA Volume (BP A-L) 50 ml RA Dimensions RA Area (4C) 17.8 cm2 <=18.0 Report Signatures
[2024-05-18 04:56] LABS: Basophils Percent Auto 0.4 % (0.2-1.2); Eosinophils Absolute Auto 0.2 K/mm3 (0-0.3); Eosinophils Percent Auto 2.1 % (0-4.4); Hematocrit 46.5 % (42.0-52.0); Hemoglobin 14.6 g/dL (14.0-18.0); Immature Granulocyte Absolute 0.03 K/mm3 (0.00-0.031); Immature Granulocyte Percent A 0.4 % (0-0.5); Lymphocytes Absolute Auto 1.66 K/mm3 (0.9-3.2); Lymphocytes Percent Auto 23.1 % (18.3-44.2); Mean Corpuscular HGB Conc 31.4 g/dl (32-36); Mean Corpuscular Hemoglobin 27.9 pg (26-34); Mean Corpuscular Volume 88.7 fl (80-100); Mean Platelet Volume 9.7 fl (7.4-10.4); Monocytes Absolute Auto 0.7 K/mm3 (0.1-0.6); Monocytes Percent Auto 9.2 % (2.6-8.5); Neutrophils Absolute Auto 4.7 K/mm3 (1.3-6.7); Neutrophils Percent Auto 64.8 % (45.5-73.1); Platelet Count Result 198 k/mm3 (150-375); Red Blood Count 5.24 M/mm3 (4.6-6.20); Red Cell Distribution Width 13.9 % (11.5-14.5); White Blood Count 7.2 K/mm3 (4.5-10.0)
[2024-05-18 05:11] LABS: Alanine Aminotransferase 23 U/L (6-50); Albumin Level 4.1 g/dL (3.5-5.1); Alkaline Phosphatase 83 U/L (38-126); Anion Gap 12 mmol/L (4-12); Aspartate Amino Transferase 19 U/L (17-59); Bilirubin,Total 0.6 mg/dL (0.2-1.3); Blood Urea Nitrogen 18 mg/dL (9-20); Calcium 9.1 mg/dL (8.4-10.2); Carbon Dioxide 23 mmol/L (22-30); Chloride 104 mmol/L (98-107); Estimated CRCL calculation 80 ml/min; Estimated Glomerular Filt Rate > 60; Glucose 124 mg/dL (65-110); Sodium 139 mmol/L (137-145)
[2024-05-18] MEDS: IPRATROPIUM BR 0.02% INH SOLN 0.5 MG/2.5 ML VIAL INHALATION ×2 (09:09→15:48)
[2024-05-18] MEDS: FLUTICASONE/SALMETEROL 115-21 MCG INHALER 1 PUFF 2 PUFF INHALATION (09:10)
[2024-05-18] MEDS: lisinopriL 20 MG TABLET PO (09:21)
[2024-05-18] MEDS: DOCUSATE SODIUM 100 MG CAPSULE PO (09:22)
[2024-05-18] MEDS: ASPIRIN 81 MG ENTERIC TABLET PO (09:22)
[2024-05-18] MEDS: DUTASTERIDE 0.5 MG CAPSULE PO (09:48)
--- NOTE | 2024-05-18 11:06 | EST_ITS ---
Patient Info Name: Rg Barker Age: 78 years : 1945 Gender: Male Ht: 71 in Wt: 244 lbs BSA: 2.39 m2 HR: 62 bpm BP: 141 / 70 mmHg Exam Date: 05/18/2024 2:25 PM Exam Location: Echo Lab Patient Status: Inpatient Admit Date: 05/17/2024 Staff Ordering Physician: Judith Real MD Attending Provider: JUDITH REAL MD Exercise Technologist: Pamella Warren CIELO Exercise Physician: Judith Real MD Exam Type: CA stress michelet w NM Study Info A regadenoson stress test was performed. Summary 1. No abnormal ST/T wave changes diagnostic of ischemia with Lexiscan. 2. Please correlate with nuclear medicine images, reported separately. 3. Stress test supervised by and interpreted by Judith Real MD. Protocol: Lexiscan Stress ECG Details Stage: REST Duration (min): 0 min : 52 sec HR (bpm): 64 SBP (mmHg): 141 DBP (mmHg): 70 Stage: REST Duration (min): 15 min : 41 sec HR (bpm): 66 SBP (mmHg): 141 DBP (mmHg): 70 Stage: STAGE 1 Duration (min): 0 min : 59 sec HR (bpm): 102 SBP (mmHg): 144 DBP (mmHg): 54 Stage: RECOVERY Duration (min): 1 min : 0 sec HR (bpm): 102 SBP (mmHg): 144 DBP (mmHg): 54 Stage: RECOVERY Duration (min): 2 min : 0 sec HR (bpm): 95 SBP (mmHg): 144 DBP (mmHg): 54 Stage: RECOVERY Duration (min): 3 min : 0 sec HR (bpm): 96 SBP (mmHg): 144 DBP (mmHg): 54 Stage: RECOVERY Duration (min): 4 min : 0 sec HR (bpm): 93 SBP (mmHg): 144 DBP (mmHg): 60 Stage: RECOVERY Duration (min): 4 min : 3 sec HR (bpm): 91 SBP (mmHg): 144 DBP (mmHg): 60 Rest HR: 66 bpm Peak HR: 104 bpm Rest Sys BP: 141 mmHg Peak Sys BP: 144 mmHg Max Pred HR: 142 bpm % Max Pred HR: 73 % Target HR: 121 bpm Max RPP: 14,976 bpm*mmHg Total Time: 1 min : 0 sec Rest Worley BP: 70 mmHg Peak Worley BP: 60 mmHg Total Dose: 0.4 mg Resting ECG Sinus rhythm. Stress ECG No abnormal ST/T wave changes diagnostic of ischemia with Lexiscan. Arrhythmias None. Report Signatures
--- NOTE | 2024-05-18 11:57 | PM.CNCAR ---
Assessment and Plan Assessment and plan (1) Chest pain: Code(s): R07.9 - Chest pain, unspecified Status: Acute Plan 1. Chest pain 2. Hypertension 3. COPD 4. Former smoker PLAN: -Troponins negative, EKG without ischemic changes. Given risk factors, reasonable to pursue stress testing. Will obtain Lexiscan (patient unsure of how well he can walk on treadmill). -If stress test is negative, okay for discharge from a cardiac standpoint. Recommendations and plan discussed with Hospitalist. History of Present Illness History of Present Illness Consult date/time: 05/18/24 11:57 Requesting physician: Laisha Prajapati APRN Consult reason: chest pain Reason For Visit: Chest Pain Narrative: We are consulted for chest pain. Rg is a 78 year old male with hypertension, anxiety, BPH, glaucoma, former smoker who presented to [place] with chest pain. Had an episode of chest pain after walking for 15-20 minutes on Thursday. Chest pain was sharp and diffuse across his chest. No radiation. Lasted for a few seconds before self-resolving. Had another similar episode yesterday morning after waking up and moving around. No prior cardiac history. Workup shows negative troponin x 3. EKG without ischemic changes. He is feeling well now without recurrence of chest pain. States he was given an inhaler treatment which made him feel better. Review of Systems Review of Systems: All systems reviewed & are unremarkable except as noted in HPI and below (HPI) [facility] Past Medical History Medical History Former smoker COPD (chronic obstructive pulmonary disease) History of colon polyps BPH associated with nocturia Essential (primary) hypertension Family History Family History Sibling Family history of lung cancer, Onset Age: 56 Patient's brother is Accident caused by farm tractor Mother Cerebrovascular accident Macular degeneration Father Acute myocardial infarction Sibling No problems noted. Other Diabetes mellitus Family history of malignant neoplasm Hypertension Social History Social History Smoking packs per day: 1 Smoking cigarettes per day: 20.0 Years smoked: 15 Smoking pack-years: 15.00 Smoking status: Former smoker Tobacco type: cigarettes Second hand tobacco smoke exposure: No Smoking end date: 03/16/75 Alcohol intake: never Substance use: never Substance use type: does not use Do You Feel Safe in your Home?: Yes Lack of Transportation: No Lack of Food: Never True Current Housing: I Have Housing Concerned About Future Housing: No Difficulty Paying Gas/Electric Bills: No Difficulty Paying for Meds: No Currently Unemployed: No Education: High School Diploma/GED Difficulty w/ Childcare or Family Care: No Living arrangements: with family Occupation/Education: retired 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 Gender identity (if verbalized by the patient): Male Spiritual care concerns: No Meds Home Medications and Allergies Home Medications ?Medication ?Instructions ?Recorded ?Confirmed ?Type dutasteride 0.5 mg capsule 0.5 mg PO DAILY 04/26/19 05/17/24 History (Avodart) timolol maleate (PF) 0.5 % eye 1 drop ophthalmic (eye) DAILY 04/26/19 05/17/24 History drops in a dropperette (Timoptic Ocudose (PF)) docusate sodium 100 mg capsule 100 mg PO DAILY 09/22/22 05/17/24 History (Stool Softener) lisinopril 20 mg tablet 20 mg PO DAILY #90 tabs 09/30/23 05/17/24 Rx albuterol sulfate 90 mcg/actuation 1 puff inhalation QID #6.7 grams 04/12/24 05/17/24 Rx aerosol inhaler ipratropium bromide 0.02 % 0.5 mg (2.5 mL) inhalation Q6HRT 04/17/24 05/17/24 Rx solution for inhalation PRN shortness of breath/wheezing #30 doses nebulizer accessories #1 ea 04/17/24 05/17/24 Rx nebulizer and compressor #1 ea 04/17/24 05/17/24 Rx fluticasone propionate 115 2 puff inhalation Q12HRT #1 04/29/24 05/17/24 Rx mcg-salmeterol 21 mcg/actuation applicator HFA inhaler (Advair HFA) montelukast 10 mg tablet 10 mg PO HS #30 tabs 04/29/24 05/17/24 Rx (Singulair) Allergies Allergy/AdvReac Type Severity Reaction Status Date / Time No Known Allergies Allergy Verified 05/17/24 08:38 Vital Signs Vital Signs - 24 hr 05/17/24 12:06 05/17/24 12:15 05/17/24 12:16 Temperature Pulse Rate 63 63 58 L Respiratory Rate 20 21 H 20 Blood Pressure 135/74 Pulse Oximetry 99 97 98 Oxygen Delivery 05/17/24 12:30 05/17/24 12:45 05/17/24 13:02 Temperature Pulse Rate 66 92 Respiratory Rate 21 H 24 H Blood Pressure 136/92 H Pulse Oximetry 96 Oxygen Delivery 05/17/24 13:04 05/17/24 13:15 05/17/24 13:48 Temperature Pulse Rate Respiratory Rate Blood Pressure Pulse Oximetry 95 100 96 Oxygen Delivery 05/17/24 14:00 05/17/24 14:15 05/17/24 14:31 Temperature Pulse Rate 76 74 Respiratory Rate 18 24 H Blood Pressure 123/54 L Pulse Oximetry 92 95 92 Oxygen Delivery 05/17/24 14:32 05/17/24 14:51 05/17/24 15:04 Temperature Pulse Rate 73 73 70 Respiratory Rate 22 H 22 H 20 Blood Pressure Pulse Oximetry 96 95 94 Oxygen Delivery 05/17/24 15:18 05/17/24 15:30 05/17/24 15:45 Temperature Pulse Rate 77 83 88 Respiratory Rate 28 H 17 15 Blood Pressure Pulse Oximetry 97 Oxygen Delivery 05/17/24 16:00 05/17/24 16:02 05/17/24 16:29 Temperature Pulse Rate 72 76 74 Respiratory Rate 20 22 H 20 Blood Pressure 182/94 H Pulse Oximetry 96 Oxygen Delivery 05/17/24 16:30 05/17/24 16:45 05/17/24 16:46 Temperature Pulse Rate 75 81 83 Respiratory Rate 15 20 21 H Blood Pressure 162/87 H Pulse Oximetry 96 Oxygen Delivery 05/17/24 17:00 05/17/24 17:15 05/17/24 17:30 Temperature Pulse Rate 75 72 72 Respiratory Rate 18 19 16 Blood Pressure Pulse Oximetry 95 96 Oxygen Delivery 05/17/24 17:31 05/17/24 17:45 05/17/24 18:00 Temperature Pulse Rate 72 73 82 Respiratory Rate 20 24 H 22 H Blood Pressure 154/81 H Pulse Oximetry 100 97 96 Oxygen Delivery 05/17/24 18:15 05/17/24 18:16 05/17/24 18:26 Temperature Pulse Rate 80 76 71 Respiratory Rate 15 14 14 Blood Pressure 136/76 Pulse Oximetry 89 L 96 Oxygen Delivery 05/17/24 18:27 05/17/24 18:30 05/17/24 18:32 Temperature Pulse Rate 73 73 Respiratory Rate 11 L 19 Blood Pressure Pulse Oximetry 95 98 Oxygen Delivery Room Air 05/17/24 18:55 05/17/24 19:00 05/17/24 19:01 Temperature Pulse Rate 87 84 85 Respiratory Rate 23 H 17 15 Blood Pressure 147/74 H Pulse Oximetry 92 95 Oxygen Delivery 05/17/24 19:15 05/17/24 19:31 05/17/24 19:45 Temperature Pulse Rate 79 83 74 Respiratory Rate 17 30 H 18 Blood Pressure 145/76 H Pulse Oximetry 98 91 Oxygen Delivery 05/17/24 19:46 05/17/24 19:55 05/17/24 20:00 Temperature Pulse Rate 76 64 Respiratory Rate 22 H 18 Blood Pressure Pulse Oximetry 95 Oxygen Delivery Room Air 05/17/24 20:15 05/17/24 20:40 05/17/24 21:45 Temperature Pulse Rate 64 63 71 Respiratory Rate 23 H 18 Blood Pressure Pulse Oximetry 97 99 Oxygen Delivery Room Air 05/17/24 22:00 05/17/24 23:15 05/17/24 23:18 Temperature 36.4 C Pulse Rate 72 68 75 Respiratory Rate 16 18 Blood Pressure 126/56 L Pulse Oximetry 99 Oxygen Delivery 05/17/24 23:25 05/18/24 00:00 05/18/24 00:00 Temperature Pulse Rate 71 71 79 Respiratory Rate 18 18 Blood Pressure Pulse Oximetry 99 Oxygen Delivery Room Air 05/18/24 02:00 05/18/24 04:00 05/18/24 04:29 Temperature 36.6 C Pulse Rate 61 70 75 Respiratory Rate 18 Blood Pressure 112/61 Pulse Oximetry 97 Oxygen Delivery 05/18/24 04:30 05/18/24 06:00 05/18/24 08:00 Temperature Pulse Rate 75 85 79 Respiratory Rate 18 Blood Pressure Pulse Oximetry 97 Oxygen Delivery Room Air 05/18/24 08:00 05/18/24 08:05 05/18/24 09:11 Temperature 36.6 C Pulse Rate 66 Respiratory Rate 18 Blood Pressure 125/57 L Pulse Oximetry 92 98 92 Oxygen Delivery Room Air Room Air 05/18/24 09:11 05/18/24 09:19 05/18/24 10:00 Temperature Pulse Rate 88 74 69 Respiratory Rate 18 20 Blood Pressure Pulse Oximetry Oxygen Delivery 05/18/24 11:11 Temperature Pulse Rate Respiratory Rate Blood Pressure Pulse Oximetry Oxygen Delivery Room Air Exam Const: General: comfortable and no acute distress HENMT: Mouth: Yes moist mucous membranes Eyes: General: appearance normal, both eyes and all related structures Sclera: sclerae normal Neck: Neck: supple Resp: Effort & Inspection: normal respiratory effort Auscultation: clear to auscultation bilaterally Cardio: Rate: regular rate Rhythm: regular rhythm Heart sounds: no murmurs Skin: General skin exam: normal color Neuro: Speech: normal speech Psych: Mental Status: mental status grossly normal Affect: normal affect Results Labs and Meds 05/18/24 04:30 05/18/24 04:30 Lab results: Cardiac Enzymes 05/17/24 05/17/24 05/18/24 Range/Units 11:45 15:40 04:30 AST 19 (17-59) U/L Troponin I < 0.012 < 0.012 (0.000-0.034) ng/mL Lipids 05/17/24 Range/Units 11:44 Triglycerides 105 (<150) mg/dL Cholesterol 169 (0-200) mg/dL CBC 05/18/24 Range/Units 04:30 WBC 7.2 (4.5-10.0) K/mm3 RBC 5.24 (4.6-6.20) M/mm3 Hgb 14.6 (14.0-18.0) g/dL Hct 46.5 (42.0-52.0) % Plt Count 198 (150-375) k/mm3 Lymph # (Auto) 1.66 (0.9-3.2) K/mm3 Bowie # (Auto) 0.7 H (0.1-0.6) K/mm3 Eos # (Auto) 0.2 (0-0.3) K/mm3 Baso # (Auto) 0.0 (0.0-0.1) K/mm3 Comprehensive Metabolic Panel 05/18/24 Range/Units 04:30 Sodium 139 (137-145) mmol/L Potassium 4.0 (3.4-5.0) mmol/L Chloride 104 (98-107) mmol/L Carbon Dioxide 23 (22-30) mmol/L BUN 18 (9-20) mg/dL Creatinine 0.84 (0.7-1.3) mg/dL Glucose 124 H (65-110) mg/dL Calcium 9.1 (8.4-10.2) mg/dL AST 19 (17-59) U/L ALT 23 (6-50) U/L Alkaline Phosphatase 83 (38-126) U/L Total Protein 7.0 (6.3-8.2) g/dL Albumin 4.1 (3.5-5.1) g/dL Intake and Output 05/17/24 05/18/24 05/18/24 23:59 07:59 15:59 Intake Total 550 Balance 550 Intake: Oral 550 Other: # Unmeasured Voids 3 Patient Weight 05/18/24 23:59 Weight 110.4 kg
--- NOTE | 2024-05-18 16:37 | P.DS_ITS ---
DS: Admitting Diagnosis Discharge Date 05/18/24 Admitting Diagnosis Stable angina Hypertension COPD Former smoker Elevated PSA DS: Discharge Diagnosis Discharge Diagnosis (1) Stable angina: Code(s): I20.89 - Other forms of angina pectoris Status: Acute (2) Essential (primary) hypertension: Code(s): I10 - Essential (primary) hypertension Status: Acute (3) COPD (chronic obstructive pulmonary disease): Code(s): J44.9 - Chronic obstructive pulmonary disease, unspecified Status: Acute (4) Former smoker: Code(s): Z87.891 - Personal history of nicotine dependence Status: Acute (5) Elevated prostate specific antigen [PSA]: Code(s): R97.20 - Elevated prostate specific antigen [PSA] Status: Acute DS: Summary Hospital Course Reason for hospitalization: Stable angina Hypertension COPD Former smoker Elevated PSA Hospital Course: This is a 78 old male with a significant past medical history of anxiety, BPH, hypertension, glaucoma, COPD, former smoker who presented to the hospital with complaints of chest pain. Patient states that he was walking for exercise yester day and started feeling midsternal chest pain with mild diaphoresis which was relieved quickly after he rested. This morning he was exerting himself with just his daily routine and the chest pain started and again was relieved by rest. He then decided to come to the hospital for further evaluation. He denies any fever, chills, nausea, vomiting, diarrhea, abdominal pain, or shortness of breath. He denies any recent illness or sick contacts. He states that the chest pain did not radiate and stayed midsternal. He denies history of hyperlipidemia. Workup in the included chest x-ray which was negative for any acute cardiopulmonary disease. Labs were essentially unremarkable. Troponin negative x2. EKG showed sinus rhythm with a rate of 68, QTC 395, shown possibly mild ST depression in inferior leads, no ST elevation, BBB, or axis deviation. Patient was given 324 mg aspirin while in the ED. Cardiology consulted. Patient had a nuclear medicine stress test on 05/18/2024 which did not show any abnormal ST T- wave changes diagnostic of ischemia. Lexiscan stress test was negative for ischemia or infarct. Patient had an ejection fraction of 69%. Echocardiogram showed a normal LV systolic function with an estimated EF of 55-60%, grade 1 diastolic dysfunction. Considering a normal workup patient was encouraged to take a baby aspirin daily and then follow up with his primary care doctor in 1 week. He is stable for discharge at this time. Final diagnosis: Stable angina Status at Discharge Cognitive/behavioral status at discharge: Alert oriented x4 Functional status at discharge: independent ambulation Overall status at discharge: patient is progressing back to baseline Time Spent with Patient Time attestation: Total time spent providing and/or coordinating discharge services: Time spent: Greater than 30 minutes Exam Narrative: General: In no acute distress, well nourished Cardiac: Normal S1 and S2. No murmur, gallops or friction rubs, peripheral pulses intact. Respiratory: Lungs clear to auscultation, no adventitious lung sounds, currently on room air Gastrointestinal: soft, non-distended, non-tender, normoactive bowel sounds. : voiding without difficulty. Neuro: Alert and oriented x4 DS: Data Data Completed and Pending Completed studies during hospitalization: Chest x-ray Nuclear med stress test Lexiscan stress test Pending studies at discharge: None Labs on day of discharge: Labs from last 24 hours 05/18/24 04:30 WBC 7.2 RBC 5.24 Hgb 14.6 Hct 46.5 MCV 88.7 MCH 27.9 MCHC 31.4 L RDW 13.9 Plt Count 198 MPV 9.7 Immature Gran % (Auto) 0.4 Neut % (Auto) 64.8 Lymph % (Auto) 23.1 Falls % (Auto) 9.2 H Eos % (Auto) 2.1 Baso % (Auto) 0.4 Lymph # (Auto) 1.66 Falls # (Auto) 0.7 H Eos # (Auto) 0.2 Baso # (Auto) 0.0 Abs Immat Gran (auto) 0.03 Absolute Neuts (auto) 4.7 Absolute Nucleated RBC 0.000 Nucleated RBC % 0.0 Sodium 139 Potassium 4.0 Chloride 104 Carbon Dioxide 23 Anion Gap 12 BUN 18 Creatinine 0.84 Estim Creat Clear Calc 80 Estimated GFR > 60 Glucose 124 H Calcium 9.1 Total Bilirubin 0.6 AST 19 ALT 23 Alkaline Phosphatase 83 Total Protein 7.0 Albumin 4.1 Procedures/Treatments: None Discharge Plan Discharge Attending physician on discharge: [place] Consulting providers: Lulu Real; Jamal Grant Discharging Clinician: [place],Laisha M. Anticipated Discharge Date/Time: 05/18/24 16:34 Patient Disposition: Home, Self-Care Activity: as tolerated Diet: as tolerated and heart healthy Discharge Instructions: * Your stress test was normal * Echocardiogram shown grade 1 diastolic dysfunction and a normal ejection fraction of 55-60% * Follow up with your primary care doctor in 1 week * Start taking a baby aspirin 81mg daily. Patient Instructions: Antibiotic Form, Angina (GEN), Chest Pain (GEN) Patient Language: Hebrew Stand Alone Forms: General Discharge Information Follow-up/Referrals: Cisco Dumont, [Primary Care Provider] - 1 Week Discharge Medications: New aspirin 81 mg Tablet,Delayed Release (Dr/Ec) 81 mg PO QAM Qty: 30 0RF Continued dutasteride [Avodart] 0.5 mg capsule 0.5 mg PO DAILY Timoptic Ocudose (PF) 0.5 % dropperette 1 drop EACH EYE DAILY docusate sodium [Stool Softener] 100 mg capsule 100 mg PO DAILY montelukast [Singulair] 10 mg tablet 10 mg PO HS Qty: 30 5RF albuterol sulfate 90 mcg/actuation HFA aerosol inhaler 1 puff inhalation QID Qty: 6.7 0RF (DME) nebulizer and compressor Device See Rx Instructions .Route Qty: 1 0RF Rx Instructions: As directed (DME) nebulizer accessories Kit See Rx Instructions .Route Qty: 1 0RF Rx Instructions: As directed lisinopril 20 mg tablet 20 mg PO DAILY Qty: 90 3RF No Action albuterol sulfate 1.25 mg/3 mL solution for nebulization 1.25 mg inhalation Q6H PRN (Reason: shortness of breath or wheezing) Qty: 360 1RF ipratropium bromide 0.02 % solution 2.5 ml inhalation Q6H PRN (Reason: shortness of breath or wheezing) Qty: 300 1RF budesonide-formoterol [Symbicort] 160-4.5 mcg/actuation HFA aerosol inhaler 2 puff inhalation Q12H Qty: 10.2 6RF Date of admission: 05/17/24 10:51 Primary Care Provider: Cisco Dumont Admitting Provider: Go Nettles Attending physician on admission: Laisha Prajapati Condition: Improved Quality VTE Prophylaxis VTE prophylaxis: mechanical ordered Hospitalist MIPS Heart Failure (Exclusion) Patient has history of Heart Transplant or Left Ventricular Assistive Device?: No IF YES, STOP HERE Heart Failure (Qualifier) Patient has current or prior documentation of LVEF less than or equal to 40%, or mod/servere depressed LVSF?: No IF NO, STOP HERE
== END 2024-05-18 16:55 | disposition home or self-care (01) ==
LOC: ANHED 10:51 → ANHIMU 12:25
PROVIDERS: Admitting Provider Internal Medicine; Emergency Provider Emergency Medicine; PCP Internal Medicine; Visit Provider Nurse Practitioner Acute Care
DX: I20.89 Other forms of angina pectoris (principal); I10 Essential (primary) hypertension; J44.9 Chronic obstructive pulmonary disease, unspecified; R97.20 Elevated prostate specific antigen [PSA]; N40.1 Benign prostatic hyperplasia with lower urinary tract symptoms; R35.1 Nocturia; F41.9 Anxiety disorder, unspecified; H40.9 Unspecified glaucoma; Z79.51 Long term (current) use of inhaled steroids; Z87.891 Personal history of nicotine dependence
CPT/HCPCS: 36415; 71046; 78452; 80053; 80061; 83690; 84443; 84484; 85025; 85610; 85730; 93005; 93017; 93306; 94640; 99285; A9270; A9502; G0378; J2785

== ENCOUNTER 2024-06-07 07:42 | Outpatient (CLI) | payer MEDICARE, OTHER, SELFPAY ==
--- OUTSIDE RECORDS SUMMARY | 2024-06-07 07:47 | XMS_ITS | Clinical Summary ---
Author Organization [facility] Address [address] [place] [address] Care Team Providers Care Campaign Specialist Name Role Phone Cisco Dumont DO Primary Care Provider [phone] Allergies No known active allergies Medications lisinopril (PRINIVIL) 20 MG tablet Take 1 tablet (20 mg total) by mouth daily. Active albuterol sulfate HFA 108 (90 Base) MCG/ACT inhaler Inhale 4 puffs into the lungs every 4 (four) hours as needed for Wheezing or Shortness of breath. 18 g Active Encounters Date Type Department Care Team Description 04/01/2024 7:16 AM OCTAVE BOARD RACKER - 04/01/2024 9:35 AM [facility] Emergency [facility] Emergency Room [address] [place] [address] Reilly Stewart MD Shortness Of Breath Discharge [...] Sex Assigned at Male 04/01/2024 7:39 AM OCTAVE BOARD RACKER Legal Sex Male 7:12 AM OCTAVE BOARD RACKER Gender Identity Not on file Sexual Orientation Not on file Last Filed Vital Signs Vital Sign Reading Time Taken Comments Blood Pressure 162/96 04/01/2024 9:15 AM OCTAVE BOARD RACKER Pulse 70 04/01/2024 9:15 AM OCTAVE BOARD RACKER Temperature 36.5 C (97.7 F) 04/01/2024 9:15 AM OCTAVE BOARD RACKER Respiratory Rate 18 04/01/2024 9:15 AM OCTAVE BOARD RACKER Oxygen Saturation 94% 04/01/2024 9:15 AM OCTAVE BOARD RACKER Inhaled Oxygen Concentration - - Weight 114.3 kg (251 lb 15.8 oz) 04/01/2024 7:13 AM OCTAVE BOARD RACKER Height 180.3 cm (5' 11 ) 04/01/2024 7:13 AM OCTAVE BOARD RACKER Body Mass Index 35.14 04/01/2024 7:13 AM OCTAVE BOARD RACKER Plan of Treatment Health Maintenance Due Date [...] XR CHEST PA+LAT STAT 04/01/2024 8:20 AM OCTAVE BOARD RACKER ECG 12-LEAD Routine 04/01/2024 7:35 AM OCTAVE BOARD RACKER PRO-BRAIN NATRIURETIC PEPTIDE STAT 04/01/2024 7:18 AM OCTAVE BOARD RACKER TROPONIN, QUANT STAT 04/01/2024 7:18 AM OCTAVE BOARD RACKER COMPREHENSIVE METABOLIC PANEL STAT 04/01/2024 7:18 AM OCTAVE BOARD RACKER CBC W/DIFF AUTOMATED STAT 04/01/2024 7:18 AM OCTAVE BOARD RACKER from Last 3 Months Results * XR CHEST PA+LAT (04/01/2024 8:20 AM OCTAVE BOARD RACKER) Anatomical Region Laterality Modality Chest Radiographic Cuca ging 04/01/2024 8:24 AM OCTAVE BOARD RACKER Impressions 04/01/2024 8:27 AM OCTAVE BOARD RACKER IMPRESSION: 1. No focal consolidation or acute findings. 2. Nodular densities in the left lung base, favored to reflect calcified granulomas. Recommend nonemergent outpatient CT chest without contrast, if not previously performed, for confirmation. Ordered By: REILLY STEWART Interpreted By: Srinivasan Dubon MD, 04/01/2024 8:24 AM Narrative 04/01/2024 8:27 AM OCTAVE BOARD RACKER [facility] [address] [place] [id number] XR CHEST PA+LAT INDICATION: dyspnea TECHNIQUE: PA and lateral views of the chest. COMPARISON: None FINDINGS: The cardiomediastinal silhouette is within normal limits. There is no pulmonary consolidation. Nodular densities project over the left lung base, likely reflective of granulomas. No pleural effusions or pneumothorax. No acute osseous abnormality. Moderate thoracic spondylosis. Procedure Note Srinivasan Dubon MD - 04/01/2024 [facility] [address] [place] [address] XR CHEST PA+LAT INDICATION: dyspnea TECHNIQUE: PA [...] * ECG 12 lead (04/01/2024 7:35 AM OCTAVE BOARD RACKER) 04/01/2024 7:35 AM OCTAVE BOARD RACKER Narrative [facility] RAD - 04/01/2024 8:19 AM OCTAVE BOARD RACKER [facility] Test Date: 2024-04-01 Pat Name: INDIANA VALENTINEGermain COYNE Department: 85 Room: EXAM 202 Gender: M [employer] Roboticist: : 1945 Requested By: REILLY STEWART Order Number: [id number] Balaji NOVA: Carlo Snow Measurements Intervals [place] Rate: 61 P: 79 SC: 162 QRS: 104 QRSD: 97 T: 60 QT: 369 QTc: 374 Interpretive Statements SINUS RHYTHM RIGHT AXIS DEVIATION [QRS AXIS > 100] No previous ECG available for comparison VE BOARD RACKER Procedure Note Carlo Snow MD - 04/01/2024 [facility] Test Date: 2024-04-01 Pat Name: INDIANA DOMINGUEZ JR. Department: 85 Room: EXAM 202 Gender: M [employer] Roboticist: : 1945 Requested By: REILLY STEWART Order Number: [id number] Balaji NOVA: Carlo Snow Measurements Intervals [place] Rate: 61 P: 79 SC: 162 QRS: 104 QRSD: 97 T: 60 QT: 369 QTc: 374 Interpretive Statements SINUS RHYTHM RIGHT AXIS DEVIATION [QRS AXIS > 100] No previous ECG available for comparison VE BOARD RACKER us Reilly Stewart MD ECG ORDERABLES Final Resu lt [facility]) RAD * PRO-BRAIN NATRIURETIC PEPTIDE (04/01/2024 7:18 AM OCTAVE BOARD RACKER) PRO-B TYPE NATRIURETIC PEPTIDE 119 <450 PG/ML 04/01/2024 7:57 AM [facility] Comment: CUT POINTS ESTABLISHED BY [...] 72% FOR ACUTE CHF. 04/01/2024 7:18 AM OCTAVE BOARD RACKER us Reilly Stewart MD LABORATORY Final Resu lt [facility] [address] [place] [address], [place] [phone] * (ABNORMAL) COMPREHENSIVE METABOLIC PANEL (04/01/2024 7:18 AM OCTAVE BOARD RACKER) Pathologist [facility] GLUCOSE 94 70 - 99 MG/DL 04/01/2024 7:57 AM [facility] BUN 16 7 - 18 MG/DL 04/01/2024 7:57 AM [facility] CREATININE S/P/B 1.04 0.7 - 1.3 MG/DL 04/01/2024 7:57 AM [facility] SODIUM S/P/B 139 136 - 145 MMOL/L 04/01/2024 7:57 AM [facility] POTASSIUM S/P/B 4.1 3.5 - 5.1 MMOL/L 04/01/2024 7:57 AM [facility] CHLORIDE S/P/B 103 100 - 108 MMOL/L 04/01/2024 7:57 AM [facility] CO2 33.9(H) 21 - 32 MMOL/L 04/01/2024 7:57 AM [facility] CALCIUM S/P/B 9.1 8.5 - 10.1 MG/DL 04/01/2024 7:57 AM [facility] BILIRUBIN TOTAL S/P/B 0.7 0.2 - 1.2 MG/DL 04/01/2024 7:57 AM [facility] TOTAL PROTEIN S/P/B 7.5 6.4 - 8.2 G/DL 04/01/2024 7:57 AM [facility] ALBUMIN S/P/B 3.8 3.4 - 5.0 G/DL 04/01/2024 7:57 AM [facility] AST 17 15 - 37 U/L 04/01/2024 7:57 AM [facility] ALT 13(L) 16 - 60 U/L 04/01/2024 7:57 AM [facility] ALKALINE PHOSPHATASE S/P/B 111 50 - 136 U/L 04/01/2024 7:57 AM [facility] ANION GAP 2.1(L) 5 - 15 MMOL/L 04/01/2024 7:57 AM [facility] BUN CREATININE RATIO 15.4 6 - 26 04/01/2024 7:57 AM [facility] A/G RATIO 1.0 1.0 - 2.0 RATIO 04/01/2024 7:57 AM [facility] GFR ESTIMATE 73(L) >90 ML/MIN/1.7 3 M2 04/01/2024 7:57 AM [facility] Comment: NOTE: eGFR is not calculated for patients <18 years of age. This is an estimated GFR calculation using the new CKD EPI creatinine equation without race and so does not require a correction factor for race. This estimated GFR should not be used for calculating drug doses. 04/01/2024 7:18 AM OCTAVE BOARD RACKER us Reilly Stewart MD LABORATORY Final Resu lt [facility] [address] [place] [address], * CBC W/DIFF AUTOMATED (04/01/2024 7:18 AM OCTAVE BOARD RACKER) WBC 7.54 4.4 - 11.0 x10'3/uL 04/01/2024 7:42 AM [facility] RBC 5.53 4.50 - 5.90 x10'6/uL 04/01/2024 7:42 AM [facility] HGB 15.7 14.0 - 17.5 G/DL 04/01/2024 7:42 AM [facility] HCT 49.2 41.5 - 50.4 % 04/01/2024 7:42 AM [facility] MCV 89.0 80.0 - 96.0 FL 04/01/2024 7:42 AM [facility] MCH 28.4 26.5 - 31.4 PG 04/01/2024 7:42 AM [facility] MCHC 31.9 31.9 - 34.8 G/DL 04/01/2024 7:42 AM [facility] RDW 13.8 12.3 - 14.3 % 04/01/2024 7:42 AM [facility] PLT 185 151 - 353 x10'3/uL 04/01/2024 7:42 AM [facility] MPV 9.7 9.7 - 11.9 FL 04/01/2024 7:42 AM [facility] RBC MORPHOLOGY NORMAL 04/01/2024 7:42 AM [facility] PLT MORPH. NORMAL 04/01/2024 7:42 AM [facility] WBC MORPHOLOGY NORMAL 04/01/2024 7:42 AM [facility] LYMPHOCYTES % 21.8 15.8 - 45.0 % 04/01/2024 7:42 AM [facility] NEUTROPHILS % 62.6 42.1 - 71.9 % 04/01/2024 7:42 AM [facility] MONOCYTES % 11.3 5.7 - 12.5 % 04/01/2024 7:42 AM [facility] EOSINOPHILS 3.2 0.0 - 5.6 % 04/01/2024 7:42 AM [facility] BASOPHILS 0.8 0.0 - 1.3 % 04/01/2024 7:42 AM [facility] ABS. NEUTROPHILS 4.73 1.40 - 6.00 x10'3/uL 04/01/2024 7:42 AM [facility] IMMATURE GRANS % 0.3 0.0 - 0.5 % 04/01/2024 7:42 AM [facility] ABS. LYMPHOCYTES 1.64 0.80 - 4.70 x10'3/uL 04/01/2024 7:42 AM [facility] 04/01/2024 7:18 AM OCTAVE BOARD RACKER us Reilly Stewart MD LABORATORY Final Resu lt [facility] [address] [place] [address], [place] [phone] * TROPONIN, QUANT (04/01/2024 7:18 AM OCTAVE BOARD RACKER) TROPONIN I HIGH SENSITIVITY 5 0 - 75 ng/L 04/01/2024 7:51 AM OCTAVE BOARD RACKER [facility] Comment: HIGH DOSES OF BIOTIN, TROPONIN-SPECIFIC AUTOANTIBODIES, AND ANTIBODY THERAPY CONTAINING HAMA MAY INTERFERE WITH THIS TEST RESULT. CORRELATION TO CLINICAL HISTORY AND PRESENTATION RECOMMENDED. 04/01/2024 7:18 AM OCTAVE BOARD RACKER us Reilly Stewart MD LABORATORY Final Resu lt [facility] [address] [place] [address], from Last 3 Months Insurance MEDICARE [place] [id number] Care Teams Campaign Specialist Relationship Specialty Start Date End Date Cisco Dumont DO [address] [phone] PCP - General INTERNAL MEDICINE 04/01/24
--- NOTE | 2024-06-07 13:09 | P.PCNPFT_ITS ---
PFT Procedure Performed PFT Procedure Performed Spirometry with Pre/Post Bronchodilator Plethysmography (Lung Vol) Diffusing Cap (DLCO) Flow Vol Loop PFT Interpretation Lung volumes were measured with the body plethysmography method. The elevated RV could be due to air trapping. The remaining lung volumes are unremarkable. Spirometry showed diminished expiratory flow rates and a diminished FEV1 to FVC ratio 55%, indicative of obstructive airway disease. Following administration of a bronchodilator there was no significant increase in expiratory flow rates. Lung diffusion capacity is within the normal range at 76% predicted. The flow- volume loop is consistent with obstructive airway disease. Impression: Moderate obstructive airway disease with evidence of air trapping and no response to bronchodilators on this testing. Lung diffusion capacity within the normal range.
== END 2024-06-07 07:43 | disposition home or self-care (01) ==
LOC: ANHPFT 07:45
PROVIDERS: PCP Internal Medicine; Visit Provider Nurse Practitioner Family
DX: J44.9 Chronic obstructive pulmonary disease, unspecified (principal); R94.2 Abnormal results of pulmonary function studies
CPT/HCPCS: 94060; 94726; 94729

== ENCOUNTER 2025-01-03 10:12 | Emergency (ER) | payer MEDICARE, OTHER, SELFPAY ==
[2025-01-03] VITALS (8 sets, daily range): BP systolic 139–151; BP diastolic 58–80; PULSE 65–83; RESP 17–21; TEMP 36.3; O2SAT 96–100
--- NOTE | ~2025-01-03 | XR_ITS ---
EXAMINATION: XR chest 2V, 01/03/2025 11:05 CDT HISTORY: COPD/COUGH/SOB COMPARISON: No comparisons available. Technique: 2 views obtained. Findings: The lungs are clear, no effusion. No pneumothorax. Heart is normal size. Mediastinal and hilar contours are within normal limits. Bony thorax no acute abnormality. Impression: No acute cardiopulmonary abnormality. Reviewed, dictated and finalized at location P. Impression: No acute cardiopulmonary abnormality.
--- NOTE | 2025-01-03 10:45 | ECG_ITS ---
Test Date: 2025-01-03 10:52:06 Measurements Intervals [place] Rate: 70 P: 73 OR: 155 QRS: 105 QRSD: 100 T: 58 QT: 386 QTc: 417 Interpretive Statements SINUS RHYTHM RIGHT AXIS DEVIATION LOW QRS VOLTAGE IN PRECORDIAL LEADS BASELINE ARTIFACT- I, II, AVR, AVL, AVF BORDERLINE ECG No previous ECG available for comparison Electronically Signed On 01-03-2025 11:26:35 CDT by Moe Raphael D.O.
[2025-01-03 11:00] LABS: Hematocrit 50.5 % (42.0-52.0); Hemoglobin 15.8 g/dL (14.0-18.0); Immature Granulocyte Percent A 0.3 % (0-0.5); Lymphocytes Absolute Auto 2.06 K/mm3 (0.9-3.2); Mean Corpuscular HGB Conc 31.3 g/dl (32-36); Mean Corpuscular Hemoglobin 27.6 pg (26-34); Mean Corpuscular Volume 88.3 fl (80-100); Nucleated Red Blood Cells Absolute Auto 0.000 K/mm3 (0.0-0.012); Nucleated Red Blood Cells Perc 0.0 % (0.0-0.2); Platelet Count Result 176 k/mm3 (150-375); Red Blood Count 5.72 M/mm3 (4.6-6.20); White Blood Count 8.7 K/mm3 (4.5-10.0)
[2025-01-03 11:14] LABS: Alanine Aminotransferase 21 U/L (6-50); Albumin Level 4.4 g/dL (3.5-5.1); Alkaline Phosphatase 88 U/L (38-126); Anion Gap 7 mmol/L (4-12); Aspartate Amino Transferase 24 U/L (17-59); Bilirubin,Total 0.7 mg/dL (0.2-1.3); Blood Urea Nitrogen 16 mg/dL (9-20); Calcium 9.1 mg/dL (8.4-10.2); Carbon Dioxide 27 mmol/L (22-30); Chloride 104 mmol/L (98-107); Estimated CRCL calculation 80 ml/min; Estimated Glomerular Filt Rate > 60; Glucose 99 mg/dL (65-110); Potassium 4.3 mmol/L (3.4-5.0); Sodium 138 mmol/L (137-145); Total Protein 7.5 g/dL (6.3-8.2)
[2025-01-03] MEDS: MAGNESIUM SULF 2 GM/WATER 50ML 2 GM/50 ML BAG IVPB (12:17)
[2025-01-03] MEDS: dexAMETHasone SOD PHOS INJ 10 MG/ML 1 ML VIAL IV PUSH (12:17)
[2025-01-03] MEDS: IPRATROPIUM 0.5 MG/ALBUTEROL SULFATE 2.5 MG (BASE) AMPUL.NEB 3 ML 12 ML INHALATION (12:27)
[2025-01-03 13:03] LABS: Influenza A QL RT-PCR Negative (Negative); Influenza B QL RT-PCR Negative (Negative); RSV RNA, RT-PCR Negative (Negative); SARS-CoV-2 RNA PCR Negative (Negative)
--- OUTSIDE RECORDS SUMMARY | 2025-01-03 14:40 | XMS_ITS | Clinical Summary ---
Author Organization [facility] Address [address] [place] [address] Care Team Providers Care Building Operator Name Role Phone Cisco Dumont DO Primary Care Provider [phone] Allergies No known active allergies Medications lisinopril (PRINIVIL) 20 MG tablet Take 1 tablet (20 mg total) by mouth daily. Active albuterol sulfate HFA 108 (90 Base) MCG/ACT inhaler Inhale 4 puffs into the lungs every 4 (four) hours as needed for Wheezing or Shortness of breath. 18 g Active Social History Tobacco Use Types Packs/Day Years Used Date Smoking Tobacco: Former Cigarettes Smokeless Tobacco: Former Tobacco Cessation:Counseling Given: Not Answered Alcohol Use Standard Drinks/Week Comments Not Currently 0 (1 standard drink = 0.6 oz pur e alcohol) Sex and Gender Information Value Date Recorded Sex Assigned at Male 04/01/2024 7:39 AM ELECTRONICS COMMODITY MANAGER Legal Sex Male 7:12 AM ELECTRONICS COMMODITY MANAGER Gender Identity Not on file Sexual Orientation Not on file Last Filed Vital Signs Vital Sign Reading Time Taken Comments Blood Pressure 162/96 04/01/2024 9:15 AM ELECTRONICS COMMODITY MANAGER Pulse 70 04/01/2024 9:15 AM ELECTRONICS COMMODITY MANAGER Temperature 36.5 C (97.7 F) 04/01/2024 9:15 AM ELECTRONICS COMMODITY MANAGER Respiratory Rate 18 04/01/2024 9:15 AM ELECTRONICS COMMODITY MANAGER Oxygen Saturation 94% 04/01/2024 9:15 AM ELECTRONICS COMMODITY MANAGER Inhaled Oxygen Concentration - - Weight 114.3 kg (251 lb 15.8 oz) 04/01/2024 7:13 AM ELECTRONICS COMMODITY MANAGER Height 180.3 cm (5' 11) 04/01/2024 7:13 AM ELECTRONICS COMMODITY MANAGER Body Mass Index 35.14 04/01/2024 7:13 AM ELECTRONICS COMMODITY MANAGER Plan of Treatment Health Maintenance Due Date Last Done Comments Hepatitis C 11[birth year]22/1963 DTaP, Tdap and Td Vaccines ( 1 - Tdap) 1964 Pneumococcal Vaccine: 50+ Ye ars (1 of 1 - PCV) 11/22/1995 Zoster Vaccines (1 of 2) 11/22/1995 Annual Medicare Wellness Visit 2010 RSV Immunization or 60+ Years (1 - 1-dose 75+ series) 2020 COVID-19 Vaccine ( - 2023-2 5 season) 2024 Influenza Adult (#1) 2024 Hepatitis A Vaccines Aged Out No long er eligible based on patient's age to complete this topic Meningococcal B Vaccine Aged Out No l onger eligible based on patient's age to complete this topic Meningococcal Vaccine Aged Out No rambo rebekah eligible based on patient's age to complete this topic RSV Immunizations Under 20 Months Aged Out No longer eligible based on patient's age to complete this topic Insurance MEDICARE [place] [id number] Care Teams Building Operator Relationship Specialty Start Date End Date Cisco Dumont DO [address] [place] [id number] PCP - General INTERNAL MEDICINE 04/01/24
--- NOTE | 2025-01-03 15:33 | ED.GENADULT ---
HPI - General Adult General Chief complaint: Shortness of Breath/Dyspnea Stated complaint: cough, chills, SOB Time Seen by Provider: 01/03/25 11:38 History of Present Illness HPI narrative: This is a 79-year-old male with history of COPD using for difficulty breathing. Patient says he woke up this morning more short of breath than usual. He did his typical of year old treatment at 3:00 a.m. but did not feeling better. He has had subjective epi fevers and chills but has not taken a temperature. He does not have any chest pain. No abdominal pain. No nausea vomiting or diarrhea. He has had a productive cough. Related Data Home Medications ?Medication ?Instructions ?Recorded ?Confirmed ?Last Taken ?Type dutasteride 0.5 mg capsule 0.5 mg PO DAILY 04/26/19 08/25/24 05/16/24 20:00 History (Avodart) 0.5 mg timolol maleate (PF) 0.5 % eye 1 drop ophthalmic (eye) DAILY 04/26/19 08/25/24 05/17/24 08:00 History drops in a dropperette (Timoptic 1 drp Ocudose (PF)) docusate sodium 100 mg capsule 100 mg PO DAILY 09/22/22 08/25/24 05/16/24 20:00 History (Stool Softener) 100 mg Allergies Allergy/AdvReac Type Severity Reaction Status Date / Time No Known Allergies Allergy Verified 01/03/25 10:14 [facility] Past Medical History Medical History Former smoker COPD (chronic obstructive pulmonary disease) History of colon polyps BPH associated with nocturia Essential (primary) hypertension Family History Family History Sibling Family history of lung cancer, Onset Age: 56 Patient's brother is Accident caused by farm tractor Mother Cerebrovascular accident Macular degeneration CHF (congestive heart failure) Aspiration into airway Father Acute myocardial infarction Sibling No problems noted. Other Diabetes mellitus Family history of malignant neoplasm Hypertension Social History Social History Smoking packs per day: 1 Smoking cigarettes per day: 20.0 Years smoked: 15 Smoking pack-years: 15.00 Smoking status: Former smoker Tobacco type: cigarettes Second hand tobacco smoke exposure: No Smoking end date: 03/16/75 Alcohol intake: never Substance use: never Substance use type: does not use Do You Feel Safe in your Home?: Yes Lack of Transportation: No Lack of Food: Never True Current Housing: I Have Housing Concerned About Future Housing: No Difficulty Paying Gas/Electric Bills: No Difficulty Paying for Meds: No Currently Unemployed: No Education: High School Diploma/GED Difficulty w/ Childcare or Family Care: No Living arrangements: with family Occupation/Education: retired 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 Head: atraumatic. EYES: EOMI, NOSE: Atraumatic NECK: Trachea midline RESPIRATORY: Wheezing in all porras, speaking in full sentences CARDIOVASCULAR: RRR, +2 a pulse lower extremities ABDOMINAL: Non-distended soft nontender MUSCULOSKELETAl: No obvious deformities NEURO: Alert. Moving 4/4 extremities SKIN:: Warm, dry. Normal color PSYCHIATRIC: Normal affect Course Vital Signs Vital signs: Vital Signs Temperature 97.3 F L 01/03/25 10:15 Pulse Rate 69 01/03/25 10:15 Respiratory Rate 19 01/03/25 10:15 Blood Pressure 151/63 H 01/03/25 10:15 Pulse Oximetry 96 01/03/25 10:15 Oxygen Delivery Room Air 01/03/25 10:15 Temperature 97.3 F L 01/03/25 10:15 Pulse Rate 78 01/03/25 13:39 Respiratory Rate 17 01/03/25 13:39 Blood Pressure 139/79 01/03/25 11:45 Pulse Oximetry 100 01/03/25 12:31 Oxygen Delivery Room Air 01/03/25 12:31 Medical Decision Making [facility] Narrative Medical decision making narrative: -Course: 79-year-old male with history of COPD presenting for increased dyspnea and a productive cough. He has wheezing on exam. Given hour long breathing treatment with steroids and magnesium. Chest x-ray was clear. Viral swabs were negative. All labs within normal limits. Patient was re-evaluated states he is feeling better. We discussed admission versus discharge the patient has a nebulizer at home. He is comfortable taking q.6 hour nebulizer treatments as well as oral steroids and antibiotics. I have stressed the importance of him returning if his condition is to worsen. -DDX includes but is not limited to: COPD exacerbation, viral syndrome COPD bronchitis, PNA -Co-morbidities complicating care: COPD Vital Signs Vital Signs: Vital Signs Temperature 97.3 F L 01/03/25 10:15 Pulse Rate 69 01/03/25 10:15 Respiratory Rate 19 01/03/25 10:15 Blood Pressure 151/63 H 01/03/25 10:15 Pulse Oximetry 96 01/03/25 10:15 Oxygen Delivery Room Air 01/03/25 10:15 Temperature 97.3 F L 01/03/25 10:15 Pulse Rate 78 01/03/25 13:39 Respiratory Rate 17 01/03/25 13:39 Blood Pressure 139/79 01/03/25 11:45 Pulse Oximetry 100 01/03/25 12:31 Oxygen Delivery Room Air 01/03/25 12:31 Lab Data 01/03/25 10:52 01/03/25 10:52 Labs: Lab Results 01/03/25 01/03/25 Range/Units 10:52 12:21 WBC 8.7 (4.5-10.0) K/mm3 RBC 5.72 (4.6-6.20) M/mm3 Hgb 15.8 (14.0-18.0) g/dL Hct 50.5 (42.0-52.0) % MCV 88.3 (80-100) fl MCH 27.6 (26-34) pg MCHC 31.3 L (32-36) g/dl RDW 13.8 (11.5-14.5) % Plt Count 176 (150-375) k/mm3 MPV 9.9 (7.4-10.4) fl Immature Gran % (Auto) 0.3 (0-0.5) % Neut % (Auto) 61.1 (45.5-73.1) % Lymph % (Auto) 23.7 (18.3-44.2) % [place] % (Auto) 7.7 (2.6-8.5) % Eos % (Auto) 6.3 H (0-4.4) % Baso % (Auto) 0.9 (0.2-1.2) % Lymph # (Auto) 2.06 (0.9-3.2) K/mm3 [place] # (Auto) 0.7 H (0.1-0.6) K/mm3 Eos # (Auto) 0.6 H (0-0.3) K/mm3 Baso # (Auto) 0.1 (0.0-0.1) K/mm3 Abs Immat Gran (auto) 0.03 (0.00-0.031) K/mm3 Absolute Neuts (auto) 5.3 (1.3-6.7) K/mm3 Absolute Nucleated RBC 0.000 (0.0-0.012) K/mm3 Nucleated RBC % 0.0 (0.0-0.2) % Sodium 138 (137-145) mmol/L Potassium 4.3 (3.4-5.0) mmol/L Chloride 104 (98-107) mmol/L Carbon Dioxide 27 (22-30) mmol/L Anion Gap 7 (4-12) mmol/L BUN 16 (9-20) mg/dL Creatinine 0.83 (0.7-1.3) mg/dL Estim Creat Clear Calc 80 ml/min Estimated GFR > 60 (59 - ) Glucose 99 (65-110) mg/dL Calcium 9.1 (8.4-10.2) mg/dL Total Bilirubin 0.7 (0.2-1.3) mg/dL AST 24 (17-59) U/L ALT 21 (6-50) U/L Alkaline Phosphatase 88 (38-126) U/L Total Protein 7.5 (6.3-8.2) g/dL Albumin 4.4 (3.5-5.1) g/dL Influenza A (RT-PCR) Negative (Negative) Influenza B (RT-PCR) Negative (Negative) RSV (RT-PCR) Negative (Negative) SARS-CoV-2 RNA (RT-PCR) Negative (Negative) Discharge Plan Discharge Clinical Impression: COPD exacerbation Patient Disposition: Home Condition: Stable Instructions: Antibiotic Form, COPD (Chronic Obstructive Pulmonary Disease) (DC) Additional Instructions: You were seen in the emergency department for difficulty breathing. Please take your breathing treatments every 6 hours. Complete a course of prednisone any antibiotics as instructed. If your condition is getting worse (worsening shortness of breath/weakness) I want you to return to the emergency department immediately for re-evaluation. Otherwise follow-up your primary care physician in 5-7 days. Patient Language: Swedish Prescriptions: New prednisone 50 mg tablet 50 mg PO DAILY Qty: 5 0RF amoxicillin-pot clavulanate 875-125 mg tablet 1 tablet PO Q12H Qty: 20 0RF doxycycline monohydrate 100 mg capsule 100 mg PO BID Qty: 20 0RF No Action dutasteride [Avodart] 0.5 mg capsule 0.5 mg PO DAILY Timoptic Ocudose (PF) 0.5 % dropperette 1 drop EACH EYE DAILY albuterol sulfate 1.25 mg/3 mL solution for nebulization 1.25 mg inhalation Q6H PRN (Reason: shortness of breath or wheezing) Qty: 360 5RF docusate sodium [Stool Softener] 100 mg capsule 100 mg PO DAILY aspirin 81 mg Tablet,Delayed Release (Dr/Ec) 81 mg PO QAM Qty: 30 0RF (DME) nebulizer and compressor Device See Rx Instructions .Route Qty: 1 0RF Rx Instructions: As directed (DME) nebulizer accessories Kit See Rx Instructions .Route Qty: 1 0RF Rx Instructions: As directed ipratropium bromide 0.02 % solution 2.5 ml inhalation Q6H PRN (Reason: shortness of breath or wheezing) Qty: 300 5RF lisinopril 20 mg tablet See Rx Instructions .ROUTE .COMPLEX Qty: 90 1RF Dose Instruction: TAKE 1 TABLET BY MOUTH EVERY DAY Rx Instructions: TAKE 1 TABLET BY MOUTH EVERY DAY montelukast 10 mg tablet See Rx Instructions .ROUTE .COMPLEX Qty: 90 1RF Dose Instruction: TAKE 1 TABLET BY MOUTH EVERY NIGHT AT BEDTIME Rx Instructions: TAKE 1 TABLET BY MOUTH EVERY NIGHT AT BEDTIME budesonide-formoterol [Symbicort] 160-4.5 mcg/actuation HFA aerosol inhaler See Rx Instructions .ROUTE .COMPLEX Qty: 10.2 6RF Dose Instruction: INHALE 2 PUFFS EVERY 12 HOURS Rx Instructions: INHALE 2 PUFFS EVERY 12 HOURS albuterol sulfate 90 mcg/actuation HFA aerosol inhaler See Rx Instructions .ROUTE .COMPLEX Qty: 8.5 2RF Dose Instruction: INHALE 1-2 PUFFS EVERY 4-6 HOURS NEEDED FOR SHORTNESS OF BREATH/WHEEZING Rx Instructions: INHALE 1-2 PUFFS EVERY 4-6 HOURS NEEDED FOR SHORTNESS OF BREATH/WHEEZING Follow-up/Referrals: Cisco Dumont, [Primary Care Provider, Internal Medicine]
[2025-01-03] MEDS: DOXYCYCLINE HYCLATE 100 MG TABLET PO (15:53)
== END 2025-01-03 15:58 | disposition home or self-care (01) ==
PROVIDERS: Emergency Provider Emergency Medicine; PCP Internal Medicine
DX: J44.1 Chronic obstructive pulmonary disease with (acute) exacerbation (principal); Z20.822 Contact with and (suspected) exposure to COVID-19; I10 Essential (primary) hypertension; N40.1 Benign prostatic hyperplasia with lower urinary tract symptoms; R35.1 Nocturia; Z87.891 Personal history of nicotine dependence; Z86.0100 Personal history of colon polyps, unspecified; Z79.82 Long term (current) use of aspirin; Z79.899 Other long term (current) drug therapy; R94.31 Abnormal electrocardiogram [ECG] [EKG]
CPT/HCPCS: 36415; 71046; 80053; 85025; 87637; 93005; 94640; 96365; 96366; 96375; 99284; A9270; J1100; J3475

== ENCOUNTER 2025-01-20 07:48 | Emergency (ER) | payer MEDICARE, OTHER, SELFPAY ==
[2025-01-20] VITALS (19 sets, daily range): BP systolic 135–167; BP diastolic 75–97; PULSE 65–85; RESP 14–22; TEMP 36.5; O2SAT 93–99
--- NOTE | ~2025-01-20 | CT_ITS ---
EXAMINATION: CTA chest PE protocol DATE: 01/20/2025 10:54 INDICATION: Rule out PE TECHNIQUE: Computed tomography angiography (CTA) of the chest was performed with 100 mL Omnipaque-350 intravenous contrast timed to evaluate the pulmonary arteries. Coronal maximum intensity projection 3D-reconstructions were created by the technologist. The dose-length product was 883.33 mGy-cm. COMPARISON: None. FINDINGS: No pulmonary emboli seen. Borderline enlarged main pulmonary artery measuring 3.4 cm. Heart and great vessels otherwise normal in size. No thoracic aortic aneurysm or dissection. No pericardial effusion. No bulky lymphadenopathy or masses. [id number] centrilobular emphysematous changes in the upper lobes. 4 mm subpleural nodule right lower lobe image 97 series 4. Small hiatal hernia. IMPRESSION: 1. No pulmonary emboli. 2. Centrilobular emphysematous changes in the lungs, and mild dilatation of the main pulmonary artery which could be associated with developing pulmonary arterial hypertension. 3. 4 mm subpleural nodule in the right lower lobe may represent small granuloma. Follow-up chest CT in 12 months could confirm radiographic benignity. Reviewed, dictated and finalized at location [facility]. E SPOOLER IMPRESSION: 1. No pulmonary emboli. 2. Centrilobular emphysematous changes in the lungs, and mild dilatation of the main pulmonary artery which could be associated with developing pulmonary caleb rial hypertension. 3. 4 mm subpleural nodule in the right lower lobe may represent small granuloma . Follow-up chest CT in 12 months could confirm radiographic benignity.
--- NOTE | ~2025-01-20 | XR_ITS ---
EXAMINATION: XR chest 2V, 01/20/2025 8:10 UNDERGROUND PRODUCTION FOREPERSON HISTORY: sob WORSENING, HX COPD COMPARISON: No comparisons available. Technique: 2 views obtained. Findings: The lungs are clear, no effusion. No pneumothorax. Heart is normal size. Mediastinal and hilar contours are within normal limits. Bony thorax no acute abnormality. Impression: No acute cardiopulmonary abnormality. Reviewed, dictated and finalized at location P. RGROUND PRODUCTION FOREPERSON Impression: No acute cardiopulmonary abnormality.
--- OUTSIDE RECORDS SUMMARY | 2025-01-20 07:51 | XMS_ITS | Clinical Summary ---
Author Organization [facility] Address [address] [place] [address] Care Team Providers Care Program Aide Name Role Phone Cisco Dumont DO Primary Care Provider [phone] Allergies No known active allergies Medications lisinopril [...] Sex Assigned at Male 04/01/2024 7:39 AM CANVAS BASTER JUMPBASTING Legal Sex Male 7:12 AM CANVAS BASTER JUMPBASTING Gender Identity Not on file Sexual Orientation Not on file Last Filed Vital Signs Vital Sign Reading Time Taken Comments Blood Pressure 162/96 04/01/2024 9:15 AM CANVAS BASTER JUMPBASTING Pulse 70 04/01/2024 9:15 AM CANVAS BASTER JUMPBASTING Temperature 36.5 C (97.7 F) 04/01/2024 9:15 AM CANVAS BASTER JUMPBASTING Respiratory Rate 18 04/01/2024 9:15 AM CANVAS BASTER JUMPBASTING Oxygen Saturation 94% 04/01/2024 9:15 AM CANVAS BASTER JUMPBASTING Inhaled Oxygen Concentration - - Weight 114.3 kg (251 lb 15.8 oz) 04/01/2024 7:13 AM CANVAS BASTER JUMPBASTING Height 180.3 cm (5' 11) 04/01/2024 7:13 AM CANVAS BASTER JUMPBASTING Body Mass Index 35.14 04/01/2024 7:13 AM CANVAS BASTER JUMPBASTING Plan of Treatment Health Maintenance Due Date Last Done Comments Hepatitis C 11[birth year]22/1963 DTaP, Tdap and Td Vaccines ( 1 - Tdap) 1964 Pneumococcal Vaccine: 50+ Ye ars (1 of 1 - PCV) 11/22/1995 Zoster Vaccines (1 of 2) 11/22/1995 Annual Medicare Wellness Visit 2010 RSV Immunization or 60+ Years (1 - 1-dose 75+ series) 2020 COVID-19 Vaccine ( - 2024-2 6 season) 2024 Influenza Adult (#1) 2024 Hepatitis [...] age to complete this topic Insurance [place]ICARE [place] [id number] Care Teams Program Aide Relationship Specialty Start Date End Date Cisco Dumont DO [address] [place] [id number] PCP - General INTERNAL MEDICINE 04/01/24
--- NOTE | 2025-01-20 07:54 | ECG_ITS ---
Test Date: 2025-01-20 07:57:53 Measurements Intervals [place] Rate: 69 P: 78 [place]: 144 QRS: 100 QRSD: 91 T: 61 QT: 363 QTc: 390 Interpretive Statements SINUS RHYTHM WITH OCCASIONAL SUPRAVENTRICULAR PREMATURE COMPLEXES LOW QRS VOLTAGE IN PRECORDIAL LEADS Electronically Signed On 01-20-2025 10:04:32 PBX WIRE CHIEF by Daniel Blevins D.O
[2025-01-20 08:16] LABS: Hematocrit 51.9 % (42.0-52.0); Hemoglobin 16.4 g/dL (14.0-18.0); Immature Granulocyte Percent A 0.3 % (0-0.5); Lymphocytes Absolute Auto 1.53 K/mm3 (0.9-3.2); Mean Corpuscular HGB Conc 31.6 g/dl (32-36); Mean Corpuscular Hemoglobin 28.2 pg (26-34); Mean Corpuscular Volume 89.3 fl (80-100); Nucleated Red Blood Cells Absolute Auto 0.000 K/mm3 (0.0-0.012); Nucleated Red Blood Cells Perc 0.0 % (0.0-0.2); Platelet Count Result 195 k/mm3 (150-375); Red Blood Count 5.81 M/mm3 (4.6-6.20); White Blood Count 7.9 K/mm3 (4.5-10.0)
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
[2025-01-20 08:58] LABS: Alanine Aminotransferase 29 U/L (6-50); Albumin Level 4.4 g/dL (3.5-5.1); Alkaline Phosphatase 86 U/L (38-126); Anion Gap 8 mmol/L (4-12); Aspartate Amino Transferase 25 U/L (17-59); Bilirubin,Total 0.7 mg/dL (0.2-1.3); Blood Urea Nitrogen 16 mg/dL (9-20); Calcium 9.4 mg/dL (8.4-10.2); Carbon Dioxide 27 mmol/L (22-30); Chloride 103 mmol/L (98-107); Estimated CRCL calculation 70 ml/min; Estimated Glomerular Filt Rate > 60; Glucose 112 mg/dL (65-110); Potassium 4.5 mmol/L (3.4-5.0); Sodium 138 mmol/L (137-145); Total Protein 7.6 g/dL (6.3-8.2)
--- NOTE | 2025-01-20 09:31 | PC.NURSE ---
patient ambulated to the bathroom with a steady gait, short of breath noted
[2025-01-20] MEDS: IPRATROPIUM 0.5 MG/ALBUTEROL SULFATE 2.5 MG (BASE) AMPUL.NEB 3 ML INHALATION (09:35)
[2025-01-20 09:56] LABS: Influenza A QL RT-PCR Negative (Negative); Influenza B QL RT-PCR Negative (Negative); RSV RNA, RT-PCR Negative (Negative); SARS-CoV-2 RNA PCR Negative (Negative)
[2025-01-20] MEDS: SIMETHICONE 125 MG CHEW TAB PO (09:56)
[2025-01-20] MEDS: ALBUTEROL SULFATE NEB 2.5 MG/3 ML INH INHALATION (10:18)
== END 2025-01-20 11:58 | disposition home or self-care (01) ==
PROVIDERS: Emergency Provider Student in an Organized Health Care Education/Training Program; PCP Internal Medicine
DX: J44.1 Chronic obstructive pulmonary disease with (acute) exacerbation (principal); I28.1 Aneurysm of pulmonary artery; R91.1 Solitary pulmonary nodule; Z20.822 Contact with and (suspected) exposure to COVID-19; I10 Essential (primary) hypertension; N40.1 Benign prostatic hyperplasia with lower urinary tract symptoms; R35.1 Nocturia; Z87.891 Personal history of nicotine dependence; Z86.0100 Personal history of colon polyps, unspecified; I49.1 Atrial premature depolarization
CPT/HCPCS: 36415; 71046; 71275; 80053; 85025; 85380; 87637; 93005; 94640; 99284; A9270; J7512; Q9967

== ENCOUNTER 2025-02-16 09:30 | Emergency (ER) | payer MEDICARE, OTHER, SELFPAY ==
--- NOTE | ~2025-02-16 | XR_ITS ---
EXAMINATION: XR chest 1V portable COMPARISON: No comparisons available. HISTORY: productive cough FINDINGS: Small left basilar infiltrate. No pneumothorax. Heart is normal size. Mediastinal and hilar contours are within normal limits. Bony thorax no acute abnormality. Miscellaneous: None Impression: Early left lower lobe pneumonia Reviewed, dictated and finalized at location P. S ARTIST Impression: Early left lower lobe pneumonia
[2025-02-16 09:43] VITALS: BP 142/77; PULSE 71; RESP 16; TEMP 36.2; O2SAT 95
[2025-02-16 10:14] VITALS: O2SAT 96
--- NOTE | 2025-02-16 10:18 | ECG_ITS ---
Test Date: 2025-02-16 10:22:13 Measurements Intervals [place] Rate: 63 P: 79 [place]: 156 QRS: 104 QRSD: 96 T: 55 QT: 383 QTc: 393 Interpretive Statements SINUS RHYTHM RIGHT AXIS DEVIATION BASELINE ARTIFACT- I, III, AVR, AVL BORDERLINE ECG Compared to ECG 01/20/2025 07:57:53 Right-axis deviation now present Electronically Signed On 02-16-2025 11:52:58 PRINCIPAL EMBEDDED SOFTWARE ENGINEER by Moe Raphael D.O.
[2025-02-16] MEDS: ALBUTEROL SULFATE NEB 2.5 MG/3 ML INH 10 MG INHALATION (10:48)
[2025-02-16] MEDS: IPRATROPIUM BR 0.02% INH SOLN 0.5 MG/2.5 ML VIAL 1 MG INHALATION (10:48)
--- OUTSIDE RECORDS SUMMARY | 2025-02-16 11:51 | XMS_ITS | Clinical Summary ---
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 Legal Sex Male 7:12 AM CUSTOM TAILOR APPRENTICE Gender Identity Not on file Sexual Orientation Not on file Last Filed Vital Signs Vital Sign Reading Time Taken Comments Blood Pressure 162/96 04/01/2024 9:15 AM CUSTOM TAILOR APPRENTICE Pulse 70 04/01/2024 9:15 AM CUSTOM TAILOR APPRENTICE Temperature 36.5 C (97.7 F) 04/01/2024 9:15 AM CUSTOM TAILOR APPRENTICE Respiratory Rate 18 04/01/2024 9:15 AM CUSTOM TAILOR APPRENTICE Oxygen Saturation 94% 04/01/2024 9:15 AM CUSTOM TAILOR APPRENTICE Inhaled Oxygen Concentration - - Weight 114.3 kg (251 lb 15.8 oz) 04/01/2024 7:13 AM CUSTOM TAILOR APPRENTICE Height 180.3 cm (5' 11) 04/01/2024 7:13 AM CUSTOM TAILOR APPRENTICE Body Mass Index 35.14 04/01/2024 7:13 AM CUSTOM TAILOR APPRENTICE Plan of Treatment Health Maintenance Due [...] this topic Meningococcal Vaccine Aged Out No armbo rebekah eligible based on patient's age to complete this topic RSV Immunizations Under 20 Months Aged Out No longer eligible based on patient's age to complete this topic Insurance [place] [id number] Care Teams [place] [employer] Relationship Specialty Start Date End Date Cisco Dumont DO [address] [place] [id number] PCP - General INTERNAL MEDICINE 04/01/24
[2025-02-16] MEDS: AZITHROMYCIN 500 MG TABLET PO (11:59)
[2025-02-16 12:00] VITALS: BP 125/71; PULSE 80; RESP 16; O2SAT 96
--- NOTE | 2025-02-16 15:44 | ED.SOB ---
HPI - SOB/Dyspnea General Chief Complaint: Shortness of Breath/Dyspnea Stated Complaint: COPD INCREASING SOB Time Seen by Provider: 02/16/25 10:11 History of Present Illness HPI Narrative: Patient presenting here with increased shortness of breath and cough, does have a history of COPD. Related Data Home Medications ?Medication ?Instructions ?Recorded ?Confirmed ?Last Taken ?Type dutasteride 0.5 mg capsule 0.5 mg PO DAILY 04/26/19 01/31/25 05/16/24 20:00 History (Avodart) 0.5 mg timolol maleate (PF) 0.5 % eye 1 drop ophthalmic (eye) DAILY 04/26/19 01/31/25 05/17/24 08:00 History drops in a dropperette (Timoptic 1 drp Ocudose (PF)) docusate sodium 100 mg capsule 100 mg PO DAILY 09/22/22 01/31/25 05/16/24 20:00 History (Stool Softener) 100 mg Allergies Allergy/AdvReac Type Severity Reaction Status Date / Time No Known Allergies Allergy Verified 02/16/25 09:31 Review of Systems Review of Systems: All systems reviewed & are unremarkable except as noted in HPI and below PMFSH Past Medical History Medical History Former smoker COPD (chronic obstructive pulmonary disease) History of colon polyps BPH associated with nocturia Essential (primary) hypertension Family History Family History Sibling Family history of lung cancer, Onset Age: 56 Patient's brother is Accident caused by farm tractor Mother Cerebrovascular accident Macular degeneration CHF (congestive heart failure) Aspiration into airway Father Acute myocardial infarction Sibling No problems noted. Other Diabetes mellitus Family history of malignant neoplasm Hypertension Social History Social History Smoking packs per day: 1 Smoking cigarettes per day: 20.0 Years smoked: 15 Smoking pack-years: 15.00 Smoking status: Former smoker Tobacco type: cigarettes Second hand tobacco smoke exposure: No Smoking end date: 03/16/75 Alcohol intake: never Substance use: never Substance use type: does not use Lack of Transportation: No Lack of Food: Never True Current Housing: I Have Housing Concerned About Future Housing: No Difficulty Paying Gas/Electric Bills: No Difficulty Paying for Meds: No Currently Unemployed: No Education: High School Diploma/GED Difficulty w/ Childcare or Family Care: No Living arrangements: with family Occupation/Education: 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 HEAD: Normal with no signs of head trauma. EYES: EOMI, conjunctiva normal ENT: Hearing grossly intact LUNGS: Nonlabored breathing. Wheezing bilaterally HEART: Regular rate and rhythm ABD: Soft, nontender to palpation EXT: Normal range of motion SKIN: No rashes or lesions. NEURO: Alert. No gross focal sensory or strength deficits. PSYCH: Normal affect Course Vital Signs Vital signs: Vital Signs Temperature 97.2 F L 02/16/25 09:43 Pulse Rate 71 02/16/25 09:43 Respiratory Rate 16 02/16/25 09:43 Blood Pressure 142/77 H 02/16/25 09:43 Pulse Oximetry 95 02/16/25 09:43 Temperature 97.2 F L 02/16/25 09:43 Pulse Rate 80 02/16/25 12:00 Respiratory Rate 16 02/16/25 12:00 Blood Pressure 125/71 02/16/25 12:00 Pulse Oximetry 96 02/16/25 12:00 Oxygen Delivery Room Air 02/16/25 10:14 [facility] Narrative Medical decision making narrative: 79-year-old male with acute dyspnea and wheezing likely due to acute COPD exacerbation based on history and exam. Patient is hemodynamically stable. Nebulizer treatments are started and steroids given orally. EKG - 12-Lead: Performed at 1022. Interpreted by me. Sinus rhythm. Rate 63. Right axis. OH-interval normal. QRS duration normal. QTc normal. No ST segment elevation or depression. T-wave normal. Impression: No EKG evidence of acute ischemia or dysrhythmia. X-ray showing some possible pneumonia. He will be started on antibiotics. Patient monitored in the ED for a couple of hours and on reevaluation is feeling significantly better. No respiratory distress or accessory muscle use. Good air movement bilateral lungs. Prescriptions for albuterol and steroid course provided. Patient and at bedside given strict return precautions and patient is discharged in stable/improved condition. Differential Diagnosis Differential Diagnosis: COPD, CHF, pneumonia, pneumothorax, etc. Imaging Data Radiologist's impression: ITS Impressions Chest X-Ray 02/16/25 10:57 Impression: Early left lower lobe pneumonia Discharge Plan Discharge Clinical Impression: Acute bronchitis, Pneumonia Patient Disposition: Home Condition: Stable Instructions: Antibiotic Form, Acute Bronchitis (ED), Pneumonia (ED) Additional Instructions: Your chest x-ray does show possible pneumonia. Please take the antibiotics as prescribed. Please follow up with your doctor; you can always return for any further issues. Patient Language: Kiswahili Prescriptions: New ipratropium-albuterol 0.5 mg-3 mg(2.5 mg base)/3 mL solution for nebulization 3 ml inhalation Q6H PRN (Reason: shortness of breath or wheezing) Qty: 180 0RF azithromycin 250 mg tablet 250 mg PO DAILY 4 Days Qty: 4 0RF Rx Instructions: start on day 2 of therapy amoxicillin-pot clavulanate 875-125 mg tablet 1 tablet PO Q12H Qty: 10 0RF No Action dutasteride [Avodart] 0.5 mg capsule 0.5 mg PO DAILY Timoptic Ocudose (PF) 0.5 % dropperette 1 drop EACH EYE DAILY albuterol sulfate 1.25 mg/3 mL solution for nebulization 1.25 mg inhalation Q6H PRN (Reason: shortness of breath or wheezing) Qty: 360 5RF docusate sodium [Stool Softener] 100 mg capsule 100 mg PO DAILY aspirin 81 mg Tablet,Delayed Release (Dr/Ec) 81 mg PO QAM Qty: 30 0RF (DME) nebulizer and compressor Device See Rx Instructions .Route Qty: 1 0RF Rx Instructions: As directed (DME) nebulizer accessories Kit See Rx Instructions .Route Qty: 1 0RF Rx Instructions: As directed ipratropium bromide 0.02 % solution 2.5 ml inhalation Q6H PRN (Reason: shortness of breath or wheezing) Qty: 300 5RF lisinopril 20 mg tablet See Rx Instructions .ROUTE .COMPLEX Qty: 90 1RF Dose Instruction: TAKE 1 TABLET BY MOUTH EVERY DAY Rx Instructions: TAKE 1 TABLET BY MOUTH EVERY DAY montelukast 10 mg tablet See Rx Instructions .ROUTE .COMPLEX Qty: 90 1RF Dose Instruction: TAKE 1 TABLET BY MOUTH EVERY NIGHT AT BEDTIME Rx Instructions: TAKE 1 TABLET BY MOUTH EVERY NIGHT AT BEDTIME budesonide-formoterol [Symbicort] 160-4.5 mcg/actuation HFA aerosol inhaler See Rx Instructions .ROUTE .COMPLEX Qty: 10.2 6RF Dose Instruction: INHALE 2 PUFFS EVERY 12 HOURS Rx Instructions: INHALE 2 PUFFS EVERY 12 HOURS albuterol sulfate 90 mcg/actuation HFA aerosol inhaler See Rx Instructions .ROUTE .COMPLEX Qty: 8.5 2RF Dose Instruction: INHALE 1-2 PUFFS EVERY 4-6 HOURS NEEDED FOR SHORTNESS OF BREATH/WHEEZING Rx Instructions: INHALE 1-2 PUFFS EVERY 4-6 HOURS NEEDED FOR SHORTNESS OF BREATH/WHEEZING azithromycin [Zithromax] 250 mg tablet See Rx Instructions PO .COMPLEX Qty: 6 0RF Rx Instructions: For 250 mg dose pack: take 500 mg today (day 1), then 250 mg for 4 days (days 2-5) PO benzonatate 200 mg capsule 200 mg PO TID PRN (Reason: cough) Qty: 30 0RF Trelegy Ellipta 100-62.5-25 mcg blister with device 1 inh inhalation DAILY Qty: 60 1RF Rx Instructions: Rinse mouth and spit after each use Follow-up/Referrals: Cisco Dumont DO [Primary Care Provider, Internal Medicine] - 2 Days
== END 2025-02-16 12:00 | disposition home or self-care (01) ==
PROVIDERS: Emergency Provider Emergency Medicine; PCP Internal Medicine
DX: J18.9 Pneumonia, unspecified organism (principal); J20.9 Acute bronchitis, unspecified; J44.0 Chronic obstructive pulmonary disease with (acute) lower respiratory infection; I10 Essential (primary) hypertension; N40.1 Benign prostatic hyperplasia with lower urinary tract symptoms; R35.1 Nocturia; Z87.891 Personal history of nicotine dependence; Z86.0100 Personal history of colon polyps, unspecified; Z79.82 Long term (current) use of aspirin; Z79.899 Other long term (current) drug therapy; R94.31 Abnormal electrocardiogram [ECG] [EKG]
CPT/HCPCS: 71045; 93005; 99283; A9270; J7512

== ENCOUNTER 2025-03-04 07:21 | Emergency (ER) | payer MEDICARE, OTHER, SELFPAY ==
[2025-03-04] VITALS (8 sets, daily range): BP systolic 142–164; BP diastolic 71–99; PULSE 72–102; RESP 18–23; TEMP 36.4–37; O2SAT 93–97
--- NOTE | ~2025-03-04 | XR_ITS ---
Examination: XR chest 2V Clinical History: SOA Comparison: 02/16/2025 Technique: PA and Lateral Findings: Cardiomediastinal silhouette normal size and configuration. Lungs clear. No acute bony abnormality. IMPRESSION: 1. No acute cardiopulmonary findings. Reviewed, dictated and finalized at location [facility]. [facility]
[2025-03-04 07:56] LABS: Hematocrit 50.7 % (42.0-52.0); Hemoglobin 16.3 g/dL (14.0-18.0); Immature Granulocyte Percent A 0.3 % (0-0.5); Lymphocytes Absolute Auto 1.25 K/mm3 (0.9-3.2); Mean Corpuscular HGB Conc 32.1 g/dl (32-36); Mean Corpuscular Hemoglobin 28.6 pg (26-34); Mean Corpuscular Volume 88.9 fl (80-100); Nucleated Red Blood Cells Absolute Auto 0.000 K/mm3 (0.0-0.012); Nucleated Red Blood Cells Perc 0.0 % (0.0-0.2); Platelet Count Result 181 k/mm3 (150-375); Red Blood Count 5.70 M/mm3 (4.6-6.20); White Blood Count 7.3 K/mm3 (4.5-10.0)
--- NOTE | 2025-03-04 08:01 | ED.GENADULT ---
HPI - General Adult General Chief complaint: Upper Respiratory Infection Stated complaint: Productive cough, SOB Time Seen by Provider: 03/04/25 07:24 History of Present Illness HPI narrative: Patient is a 79-year-old male who presents ER with productive cough. Worsening over last 3 days. Cough is becoming more thick and he feels congestion in the chest. No fevers or chills. He has exertional dyspnea. Patient reports history of COPD. Had been on Augmentin earlier in the month for a flare of his coughing and dyspnea. No chest pain. Related Data Home Medications ?Medication ?Instructions ?Recorded ?Confirmed ?Last Taken ?Type dutasteride 0.5 mg capsule 0.5 mg PO DAILY 04/26/19 01/31/25 05/16/24 20:00 History (Avodart) 0.5 mg timolol maleate (PF) 0.5 % eye 1 drop ophthalmic (eye) DAILY 04/26/19 01/31/25 05/17/24 08:00 History drops in a dropperette (Timoptic 1 drp Ocudose (PF)) docusate sodium 100 mg capsule 100 mg PO DAILY 09/22/22 01/31/25 05/16/24 20:00 History (Stool Softener) 100 mg Allergies Allergy/AdvReac Type Severity Reaction Status Date / Time No Known Allergies Allergy Verified 03/04/25 07:24 Review of Systems Review of Systems: All systems reviewed & are unremarkable except as noted in HPI and below Constitutional: Constitutional: Reports no additional constitutional complaints ENT: Reports system reviewed and no additional complaints, except as documented Cardiovascular: Cardiovascular: Reports no additional cardiovascular complaints Respiratory: Respiratory: Reports no additional respiratory complaints [facility] Past Medical History Medical History Former smoker COPD (chronic obstructive pulmonary disease) History of colon polyps BPH associated with nocturia Essential (primary) hypertension Family History Family History Sibling Family history of lung cancer, Onset Age: 56 Patient's brother is Accident caused by farm tractor Mother Cerebrovascular accident Macular degeneration CHF (congestive heart failure) Aspiration into airway Father Acute myocardial infarction Sibling No problems noted. Other Diabetes mellitus Family history of malignant neoplasm Hypertension Social History Social History Smoking packs per day: 1 Smoking cigarettes per day: 20.0 Years smoked: 15 Smoking pack-years: 15.00 Smoking status: Former smoker Tobacco type: cigarettes Second hand tobacco smoke exposure: No Smoking end date: 03/16/75 Alcohol intake: never Substance use: never Substance use type: does not use Lack of Transportation: No Lack of Food: Never True Current Housing: I Have Housing Concerned About Future Housing: No Difficulty Paying Gas/Electric Bills: No Difficulty Paying for Meds: No Currently Unemployed: No Education: High School Diploma/GED Difficulty w/ Childcare or Family Care: No Living arrangements: with family Occupation/Education: retired 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 HEAD: Normocephalic, atraumatic. ENT: Mucous membranes moist. NECK: Supple. CHEST: Coarse rales and wheezing bilaterally. No respiratory distress. HEART: Regular rate and rhythm. Normal peripheral pulses. EXTREMITIES: Normal range of motion. No edema. SKIN: Warm, dry, no rash. NEURO: Alert and oriented x3. PSYCH: Normal mood and affect. Course Course Emergency Course: Patient has received 2 hour long nebulizer treatments. He ambulates without hypoxia. Chest x-ray without pneumonia. [place] to be bronchitis/COPD flare and he will be started on steroids for home. He does have nebulizer solution and inhalers at home. Vital Signs Vital signs: Vital Signs Temperature 97.6 F 03/04/25 07:33 Pulse Rate 72 03/04/25 07:33 Respiratory Rate 20 03/04/25 07:33 Blood Pressure 164/99 H 03/04/25 07:33 Pulse Oximetry 97 03/04/25 07:33 Oxygen Delivery Room Air 03/04/25 07:33 Temperature 97.6 F 03/04/25 07:33 Pulse Rate 97 03/04/25 12:29 Respiratory Rate 22 H 03/04/25 12:29 Blood Pressure 153/71 H 03/04/25 09:27 Pulse Oximetry 96 03/04/25 09:27 Oxygen Delivery Room Air 03/04/25 07:36 MDM Differential Diagnosis Differential Diagnosis: Pneumonia, COPD flare, pneumothorax, sepsis, PE Lab Data MDM Lab Attestation statement: I personally reviewed the patient's lab results. 03/04/25 07:50 03/04/25 07:50 Labs: Lab Results 03/04/25 03/04/25 Range/Units 07:50 07:54 WBC 7.3 (4.5-10.0) K/mm3 RBC 5.70 (4.6-6.20) M/mm3 Hgb 16.3 (14.0-18.0) g/dL Hct 50.7 (42.0-52.0) % MCV 88.9 (80-100) fl MCH 28.6 (26-34) pg MCHC 32.1 (32-36) g/dl RDW 13.8 (11.5-14.5) % Plt Count 181 (150-375) k/mm3 MPV 10.0 (7.4-10.4) fl Immature Gran % (Auto) 0.3 (0-0.5) % Neut % (Auto) 66.1 (45.5-73.1) % Lymph % (Auto) 17.1 L (18.3-44.2) % [place] % (Auto) 7.1 (2.6-8.5) % Eos % (Auto) 8.6 H (0-4.4) % Baso % (Auto) 0.8 (0.2-1.2) % Lymph # (Auto) 1.25 (0.9-3.2) K/mm3 [place] # (Auto) 0.5 (0.1-0.6) K/mm3 Eos # (Auto) 0.6 H (0-0.3) K/mm3 Baso # (Auto) 0.1 (0.0-0.1) K/mm3 Abs Immat Gran (auto) 0.02 (0.00-0.031) K/mm3 Absolute Neuts (auto) 4.9 (1.3-6.7) K/mm3 Absolute Nucleated RBC 0.000 (0.0-0.012) K/mm3 Nucleated RBC % 0.0 (0.0-0.2) % Sodium 141 (137-145) mmol/L Potassium 4.3 (3.4-5.0) mmol/L Chloride 104 (98-107) mmol/L Carbon Dioxide 31 H (22-30) mmol/L Anion Gap 6 (4-12) mmol/L BUN 14 (9-20) mg/dL Creatinine 0.95 (0.7-1.3) mg/dL Estim Creat Clear Calc 69 ml/min Estimated GFR > 60 (59 - ) Glucose 127 H (65-110) mg/dL Calcium 9.3 (8.4-10.2) mg/dL Total Bilirubin 0.8 (0.2-1.3) mg/dL AST 21 (17-59) U/L ALT 23 (6-50) U/L Alkaline Phosphatase 86 (38-126) U/L Total Protein 7.3 (6.3-8.2) g/dL Albumin 4.3 (3.5-5.1) g/dL Influenza A (RT-PCR) Negative (Negative) Influenza B (RT-PCR) Negative (Negative) RSV (RT-PCR) Negative (Negative) SARS-CoV-2 RNA (RT-PCR) Negative (Negative) Imaging Data Radiologist's impression: ITS Impressions Chest X-Ray 03/04/25 08:07 IMPRESSION: 1. No acute cardiopulmonary findings. Discharge Plan Discharge Clinical Impression: COPD exacerbation Patient Disposition: Home Condition: Stable Instructions: Antibiotic Form, COPD (Chronic Obstructive Pulmonary Disease) (ED) Additional Instructions: Please return to the emergency department if you develop severe and persistent chest pain, difficulty breathing, dizziness, leg swelling or if you are coughing up blood as these can be signs of a medical emergency. Please call your doctor for a follow up appointment to determine the need for further testing. Patient Language: Romanian Prescriptions: New azithromycin 250 mg tablet See Rx Instructions PO .COMPLEX Qty: 6 0RF Rx Instructions: take 500 mg today (day 1), then 250 mg for 4 days (days 2-5) prednisone 50 mg tablet 50 mg PO DAILY Qty: 7 0RF No Action dutasteride [Avodart] 0.5 mg capsule 0.5 mg PO DAILY Timoptic Ocudose (PF) 0.5 % dropperette 1 drop EACH EYE DAILY albuterol sulfate 1.25 mg/3 mL solution for nebulization 1.25 mg inhalation Q6H PRN (Reason: shortness of breath or wheezing) Qty: 360 5RF docusate sodium [Stool Softener] 100 mg capsule 100 mg PO DAILY aspirin 81 mg Tablet,Delayed Release (Dr/Ec) 81 mg PO QAM Qty: 30 0RF ipratropium-albuterol 0.5 mg-3 mg(2.5 mg base)/3 mL solution for nebulization 3 ml inhalation Q6H PRN (Reason: shortness of breath or wheezing) Qty: 180 0RF azithromycin 250 mg tablet 250 mg PO DAILY 4 Days Qty: 4 0RF Rx Instructions: start on day 2 of therapy amoxicillin-pot clavulanate 875-125 mg tablet 1 tablet PO Q12H Qty: 10 0RF ([facility]) nebulizer and compressor Device See Rx Instructions .Route Qty: 1 0RF Rx Instructions: As directed ([facility]) nebulizer accessories Kit See Rx Instructions .Route Qty: 1 0RF Rx Instructions: As directed ipratropium bromide 0.02 % solution 2.5 ml inhalation Q6H PRN (Reason: shortness of breath or wheezing) Qty: 300 5RF lisinopril 20 mg tablet See Rx Instructions .ROUTE .COMPLEX Qty: 90 1RF Dose Instruction: TAKE 1 TABLET BY MOUTH EVERY DAY Rx Instructions: TAKE 1 TABLET BY MOUTH EVERY DAY montelukast 10 mg tablet See Rx Instructions .ROUTE .COMPLEX Qty: 90 1RF Dose Instruction: TAKE 1 TABLET BY MOUTH EVERY NIGHT AT BEDTIME Rx Instructions: TAKE 1 TABLET BY MOUTH EVERY NIGHT AT BEDTIME budesonide-formoterol [Symbicort] 160-4.5 mcg/actuation HFA aerosol inhaler See Rx Instructions .ROUTE .COMPLEX Qty: 10.2 6RF Dose Instruction: INHALE 2 PUFFS EVERY 12 HOURS Rx Instructions: INHALE 2 PUFFS EVERY 12 HOURS albuterol sulfate 90 mcg/actuation HFA aerosol inhaler See Rx Instructions .ROUTE .COMPLEX Qty: 8.5 2RF Dose Instruction: INHALE 1-2 PUFFS EVERY 4-6 HOURS NEEDED FOR SHORTNESS OF BREATH/WHEEZING Rx Instructions: INHALE 1-2 PUFFS EVERY 4-6 HOURS NEEDED FOR SHORTNESS OF BREATH/WHEEZING azithromycin [Zithromax] 250 mg tablet See Rx Instructions PO .COMPLEX Qty: 6 0RF Rx Instructions: For 250 mg dose pack: take 500 mg today (day 1), then 250 mg for 4 days (days 2-5) PO benzonatate 200 mg capsule 200 mg PO TID PRN (Reason: cough) Qty: 30 0RF Trelegy Ellipta 100-62.5-25 mcg blister with device 1 inh inhalation DAILY Qty: 60 1RF Rx Instructions: Rinse mouth and spit after each use Follow-up/Referrals: Cisco Dumont DO [Primary Care Provider, Internal Medicine] - 1 Week
[2025-03-04] MEDS: IPRATROPIUM BR 0.02% INH SOLN 0.5 MG/2.5 ML VIAL 1.5 MG INHALATION (08:26)
[2025-03-04] MEDS: ALBUTEROL SULFATE NEB 2.5 MG/3 ML INH 15 MG INHALATION (08:26)
[2025-03-04 08:28] LABS: Alanine Aminotransferase 23 U/L (6-50); Albumin Level 4.3 g/dL (3.5-5.1); Alkaline Phosphatase 86 U/L (38-126); Anion Gap 6 mmol/L (4-12); Aspartate Amino Transferase 21 U/L (17-59); Bilirubin,Total 0.8 mg/dL (0.2-1.3); Blood Urea Nitrogen 14 mg/dL (9-20); Calcium 9.3 mg/dL (8.4-10.2); Carbon Dioxide 31 mmol/L (22-30); Chloride 104 mmol/L (98-107); Estimated CRCL calculation 69 ml/min; Estimated Glomerular Filt Rate > 60; Glucose 127 mg/dL (65-110); Potassium 4.3 mmol/L (3.4-5.0); Sodium 141 mmol/L (137-145); Total Protein 7.3 g/dL (6.3-8.2)
[2025-03-04 08:35] LABS: Influenza A QL RT-PCR Negative (Negative); Influenza B QL RT-PCR Negative (Negative); RSV RNA, RT-PCR Negative (Negative); SARS-CoV-2 RNA PCR Negative (Negative)
[2025-03-04] MEDS: ALBUTEROL SULFATE NEB 2.5 MG/3 ML INH 10 MG INHALATION (11:04)
[2025-03-04] MEDS: IPRATROPIUM BR 0.02% INH SOLN 0.5 MG/2.5 ML VIAL 1 MG INHALATION (11:05)
== END 2025-03-04 12:57 | disposition home or self-care (01) ==
PROVIDERS: Emergency Provider Emergency Medicine; PCP Internal Medicine
DX: J44.1 Chronic obstructive pulmonary disease with (acute) exacerbation (principal); Z20.822 Contact with and (suspected) exposure to COVID-19; I10 Essential (primary) hypertension; N40.1 Benign prostatic hyperplasia with lower urinary tract symptoms; R35.1 Nocturia; Z86.0100 Personal history of colon polyps, unspecified; Z87.891 Personal history of nicotine dependence
CPT/HCPCS: 36415; 71046; 80053; 85025; 87637; 94640; 96374; 99284; J2919